=== PATIENT | female | born 1935 | race Caucasian/White ===

== ENCOUNTER 2018-02-25 23:00 | Emergency (ER) | payer MEDICARE | END 2018-02-26 02:40 | disposition home or self-care (01) | LOC: ERS 23:00 | DX: Z46.6 Encounter for fitting and adjustment of urinary device (principal); E11.9 Type 2 diabetes mellitus without complications; I25.2 Old myocardial infarction; E03.9 Hypothyroidism, unspecified; E78.5 Hyperlipidemia, unspecified; Z86.73 Personal history of transient ischemic attack (TIA), and cerebral infarction without residual deficits; Z79.82 Long term (current) use of aspirin; Z79.899 Other long term (current) drug therapy | CPT/HCPCS: 51702 ==

== ENCOUNTER 2018-06-06 09:49 | Inpatient (IN) | payer MEDICARE ==
[2018-06-06 10:05] LABS: #Basophils 0.1 thou/uL (0.0-0.2); #Eosinphils 0.4 thou/uL (0.0-0.7); #Lymphocytes 3.4 thou/uL (1.20-3.40); #Monocytes 0.7 thou/uL (0.11-0.59); #Neutrophils 4.6 thou/uL (1.40-6.50); %Basophils 0.9 % (0.0-1.0); %Eosinophils 4.1 % (0.0-10.0); %Lymphocytes 37.1 % (21.0-51.0); %Monocytes 7.1 % (0.0-10.0); %Neutrophils 50.8 % (42.0-75.0); Mean Corpuscular HGB CONC 34.1 g/dL (32.0-36.0); Mean Corpuscular Hemoglobin 32.3 pg (27.0-31.0); Mean Corpuscular Volume 94.9 fL (78.0-98.0); Mean Platelet Volume 8.1 fL (7.4-10.4); Platelet Count 217 thou/uL (130-400); RBC Distribution Width 12.4 % (11.5-14.5); Red Blood Cell (RBC) Count 3.72 mill/uL (4.20-5.40); White Blood Cell (WBC) Count 9.1 thou/uL (4.8-10.8)
[2018-06-06 10:10] LABS: Prothrombin Time 12.9 SEC (12.0-14.7)
[2018-06-06 10:11] LABS: PTT 28.1 SEC (22.9-36.1)
[2018-06-06 10:21] LABS: CKMB 0.7 ng/mL (0-6.6); Troponin I Less than 0.010 ng/mL (< 0.028)
[2018-06-06 10:30] LABS: ALT (SGPT) 10 U/L (8-55); AST (SGOT) 15 U/L (5-34); Albumin 3.5 g/dL (3.4-4.8); Alkaline Phosphatase 74 U/L (40-150); Anion Gap 15 mmol/L (10-20); BUN (Urea Nitrogen) 33 mg/dL (9.8-20.1); Bilirubin, Total 0.4 mg/dL (0.2-1.2); Calc. Creatinine Clearance 0 mL/min (70-130); Calcium 8.9 mg/dL (7.8-10.44); Carbon Dioxide 21 mmol/L (23-31); Chloride 105 mmol/L (98-107); Estimated GFR-MDRD 44; Globulin 2.5 g/dL (2.4-3.5); Glucose 144 mg/dL (83-110); Potassium 5.3 mmol/L (3.5-5.1); Sodium 136 mmol/L (136-145)
[2018-06-06 10:59] LABS: Bilirubin Negative (Negative); Blood, Urine Negative (Negative); Glucose, Urine (Dipstick) Negative (Negative); Leukocyte Small (Negative); Nitrite Negative (Negative); Protein, Urine (Dipstick) Negative (Neg-Trace); Urobilinogen 0.2 mg/dL (0.2-1.0); pH, Urine 6.5 (5.0-9.0)
--- NOTE | 2018-06-06 11:00 | CT ---
CTA OF THE HEAD AND NECK UTILIZING IV CONTRAST AND 3D REFORMATTED IMAGING: INDICATION: Stroke activation. The patient was last seen normal on 06/05/18 with speech issues and disorientation . COMPARISON: CT of the brain dated 06/06/08 and 12/17/13. FINDINGS: CTA OF THE NECK: There is a small sub-4 mm pulmonary nodule within the right lung apex on image 44 of series 2. There is vascular calcification involving the aortic arch. The right brachiocephalic artery origin i s widely patent. The right subclavian artery origin is patent. The right common carotid artery orig in is widely patent. The right carotid bifurcation is patent. The cervical right ICA is widely quiles nt. The right vertebral artery origin and cervical course is widely patent. The left common carotid artery origin is widely patent. The left carotid bifurcation is patent. The left cervical ICA course is widely patent. The left subclavian artery origin is patent. The left vertebral artery origin and cervical course is widely patent. The remaining course of the left subclavian artery is widely patent. No enlarged lymph nodes are evident. The visualized parotid and submandibular glands are normal-appe aring. There is slight heterogeneity of the thyroid gland. Visualized aerodigestive tract is within normal limits. There is multilevel spondylosis of the cervical spine. CTA OF THE HEAD: No hemodynamically significant stenosis, occlusion, or aneurysmal formation is seen involving the int racranial arteries. There are moderate vascular calcifications involving the cavernous and supraclin oid ICAs. There is a remote-appearing cortical infarct involving the right frontal lobe. There is m ild chronic small-vessel white matter ischemic change. No definite acute infarct, hemorrhage, or hyd rocephalus is present. There is a remote infarct involving the left cerebellar hemisphere that is st able to the comparison in 2014. No area of abnormality enhancement is demonstrated. Mastoid air cells are clear. Visualized paranas al sinuses are clear. IMPRESSION: No hemodynamically significant stenosis, occlusion, or aneurysmal formation. Findings were called to Dr. Austin at 10:28 a.. on 06/06/18. CODE CR POS: [facility]
[2018-06-06 11:01] LABS: Clarity CLEAR (Clear)
[2018-06-06 11:06] LABS: Bacteria/HPF 2+ HPF (None Seen); Hyaline Casts/LPF NONE SEEN LPF (0-3 Hyaline); RBC/HPF None Seen HPF (0-3); Renal Epithelial None Seen HPF (0-3); Squamous Epithelial 0-3 HPF (0-3); Transitional Epithelial 0-3 HPF (0-3)
[2018-06-06] MEDS ORDERED: Aspirin 325 MG TAB ONE (12:39)
[2018-06-06] MEDS ORDERED: Labetalol HCl 100 MG/20 ML VIAL ONE (12:48)
[2018-06-06] MEDS ORDERED: ISOVUE-370 76%-LOCM 1 ML ONE (14:49)
[2018-06-06] MEDS ORDERED: Acetaminophen 325 MG TAB PO PRN (15:20)
[2018-06-06] MEDS ORDERED: Dextrose 5% in Water 1,000 ML IV PRN (15:20)
[2018-06-06] MEDS ORDERED: hydrALAZINE 20 MG/ML VIAL SLOW IVP PRN (15:20)
[2018-06-06] MEDS ORDERED: HumaLOG 300 UNITS/3 ML VIAL SC PRN ×2 (15:20)
[2018-06-06] MEDS ORDERED: Dextrose 50% Abboject 50 ML SYRINGE SLOW IVP PRN (15:20)
[2018-06-06] MEDS ORDERED: Mag-Al 1200 mg/1200 mg/30 ML UDCUP PO PRN (15:20)
[2018-06-06] MEDS ORDERED: Milk Of Magnesia 30 ML UDCUP PO PRN (15:20)
[2018-06-06 15:59] VITALS: BMI 33.5
--- NOTE | 2018-06-06 19:54 | HP ---
PRIMARY CARE PHYSICIAN: Dr. Mcgrath. CHIEF COMPLAINT: Slurred speech and confusion. HISTORY OF PRESENT ILLNESS: Ms. Boyer is a very pleasant 83-year-old female that has a history of h ypertension and diabetes mellitus. She was brought in by her daughter due to concerns for an episode in which she had slurred speech and confusion. The patient lives with her daughter and her daughter says that she was putting on her gait belt earlier this morning when she was asking her mom some que stions and she just basically stared at her like it did not process and she would not answer her back . She said she noticed that her face looked a little bit depressed on one side and she was concerned and called the EMS. This started around 9:30 this morning and she says by the time the ambulance ar rived, she began talking a little bit more and the speech did seem a bit slurred, and by the time she got to the ER, she was essentially back to normal. She noticed that her walking seemed to be okay. She was not leaning to one side and was not weak and did not have any upper extremity weakness. Her daughter says she has had a few episodes like this over the last year. She did not seek medical att ention for it. It lasted only a few minutes and then got better on its own. The patient denies yuni ng any headaches, no dizziness, no chest pain, no shortness of breath, no other symptoms. She does n ote that a few days ago she had a coughing spell and she says it was unusual. It lasted almost 3 josh rs, but then got better on its own. Otherwise, no other complaints. REVIEW OF SYSTEMS: All systems are reviewed and are negative except for that mentioned in the histor y of present illness. PAST MEDICAL HISTORY: Significant for hypertension, diabetes, hyperlipidemia, urinary retention, hyp othyroidism, previous cerebrovascular accident. PAST SURGICAL HISTORY: She has had cataract surgery. ALLERGIES: IODINE. SOCIAL HISTORY: She is . She lives with her daughter. She is a nonsmoker, nondrinker. Her code status is a FULL CODE. Her daughter, Chula Boyer is her medical decision maker. FAMILY HISTORY: No history of any inheritable diseases. CURRENT MEDICATIONS: Include glipizide 10 mg twice a day, metoprolol extended release 50 mg twice da dot, levothyroxine 75 mcg daily, lisinopril 20 mg twice a day, aspirin 325 mg daily, and Lasix 20 mg daily. PHYSICAL EXAMINATION: GENERAL: She is alert and oriented. She appears to be in no acute distress. She is well-developed, well-nourished. VITAL SIGNS: Her blood pressure was 143/82, heart rate 78, respiratory rate is 17 and she is afebril e. HEENT: Pupils are equal, round, and reactive. Extraocular muscles are intact. Her sclerae are anic teric. Throat: She has got poor dentition. There is no erythema, no exudates. NECK: There is no adenopathy, no bruits. LUNGS: These are clear to auscultation. There was no wheezing, no rales. CARDIOVASCULAR: She has a normal S1, S2. There is no S3 or S4. No murmurs, clicks, no rubs. ABDOMEN: Obese, it is soft, it is nontender, nondistended. Positive for bowel sounds. There is no rebound, no guarding. EXTREMITIES: There is no edema and no erythema. She has got palpable dorsalis pedis pulses. No ski n lesions. NEUROLOGIC: Her cranial nerves II-XII are grossly intact. Her muscle strength is 5/5 in both her up per and lower extremities. There was no pronator drift. She may have a slight droop on the right, b ut this is per her daughter's observation; per my observation, it looks fairly symmetric. LABORATORY DATA AND IMAGING DATA: Sodium was 136, potassium 5.3, chloride is 105, CO2 is 21, BUN of 33, creatinine 1.18 and glucose is 144. White blood cell count is 9.1, hemoglobin 12, hematocrit is 35.3, platelet count is 217. INR was 1.0. Urinalysis is 2+ bacteria. White blood cell count was 7- 10. She had a CT scan of the brain which was reported as having no acute changes. Still awaiting final result and CT angiogram, which did not show any significant intracranial lesions, stenosis or aneurysm. ASSESSMENT AND PLAN: This is an 83-year-old female that presents to the emergency room with confusio n and some slurred speech which was transient and has appeared to almost completely resolve to baseli ne. I suspect this was likely a transient ischemic attack. She does have risk factors for cerebrova scular disease including hypertension and diabetes mellitus. She will be monitored overnight in [facility]. We will check her lipid panel as well as monitor her blood pressure to see if there is any room for improvement in the management of that. We will also monitor her for signs of atrial fibrill ation and she has had an echo back in 2013 and her cardiac exam at least clinically appears to be unr emarkable. Therefore, we will not repeat check an echo on this admission; however, the carotid Doppl ers possibly could have changed over the last 4 years and we will repeat a carotid Doppler and if thi s is negative and there are no signs of any arrhythmia, then likely she can be discharged home tomorr ow.
[2018-06-06] MEDS: Atorvastatin Calcium 40 MG TAB PO SCH (20:27)
--- NOTE | 2018-06-06 23:57 | CON ---
DATE OF CONSULTATION: 06/06/2018 CHIEF COMPLAINT: Possible stroke. HISTORY OF PRESENT ILLNESS: The patient and her daughter gave medical history. The patient has had CVA several years ago causing baseline mild left hemiparesis, and at baseline at home, she is pretty independent, walks with a walker, and does depend on her daughter for some help. The patient does paredes ve some memory problems, which are mild, but not very confused at baseline per daughter. She had slu rred speech and right-sided facial droop today and she was brought to the hospital. She also became a little confused and this was at 9:30 this morning, and by the time she got to the ER, her symptoms resolved. At this time, her symptoms are completely resolved and she is back to her baseline, except for some confusion. She has had some intermittent episodes and 2 years ago, she did have another mi nor stroke. She does not have any headache, double vision, chest pain, or any other symptoms at this time. No numbness was described. PAST MEDICAL HISTORY: Hypertension, diabetes, coronary artery disease with prior GA plus CVA at the same time with her first stroke and another CVA 2 years ago, urinary problems, and hypothyroidism. PAST SURGICAL HISTORY: Cataract surgery. ALLERGIES: Allergic to IODINE. SOCIAL HISTORY: She lives with her daughter. Does not smoke and her daughter is her medical decisio n maker and POA. FAMILY HISTORY: There is positive family history of CVA in her mother. CURRENT MEDICATIONS AT HOME: She takes glipizide, metoprolol, levothyroxine, lisinopril, aspirin, an d Lasix. Currently, she is receiving Tylenol, Maalox, Lipitor, and also Lovenox and hydralazine here for elevated blood pressure as needed. She is also on insulin sliding scale. REVIEW OF SYSTEMS: Pulmonary: Positive for recent cough. No shortness of breath. Cardiac: Negati ve for any chest pain or palpitations. Gastrointestinal: Negative for any constipation or diarrhea. Genitourinary: Positive for urinary retention. Neurologic: Positive for slurred speech and diffi culty with facial droop on the right side. Hematologic: Normal. Dermatologic: Normal. No skin ra sh. GENERAL: Negative for any recent fever. LABORATORY DATA: Laboratory report so far: White count 9.1, hemoglobin 12, hematocrit 35.3, platele ts 217. Coagulation: PT 12.9, INR 1, PTT 28.1. Chemistry: Sodium 136, potassium 5.3, chloride 105 , bicarbonate 21, BUN 33, creatinine 1.18, glucose 144. Urine is negative for any infection. CTA shows no hemodynamically significant stenosis, occlusion, or aneurysmal formation in the CTA, but there is remote-appearing cortical infarct involving the right frontal lobe and also a remote infarc t involving left cerebellar hemisphere that is stable when compared to films in 2014. There is vascu lar calcification involving aortic arch. There is normal left ICA and right vertebral. Right caroti d bifurcation is patent. Right ECA is also patent. PHYSICAL EXAMINATION: VITAL SIGNS: Blood pressure 174/75, temperature 97.9, pulse 83, respiratory rate 14. GENERAL APPEARANCE: Well-built, well-nourished lady who seems comfortable in bed. CHEST: Clear vesicular breathing. CARDIOVASCULAR: S1, S2 heard. No murmurs. ABDOMEN: Soft, nontender. No organomegaly noted. NEUROLOGIC: Higher intellectual function. She tells me this is 03/30/1996. She knows she is in [place] [facility], could not name the hospital. Daughter said it is quite unusual for her to go that far back with her dates. Cranial nerves II-XII normal. Fundus exam, normal pupillary reaction. No facial asymmet ry. Normal sensation of face bilaterally. Normal extraocular movements bilaterally and normal stren gth of facial muscles. Normal hearing bilaterally to finger rub. Tongue midline. No atrophy noted. Normal elevation of palate. Motor Exam: Bulk normal tone. Normal strength 5/5 in both upper extr emities except for distal left upper extremity, which was at 4/5. The right lower extremity strength was 5/5, left was 4/5. Deep tendon reflexes were absent. Muscle groups tested: Iliopsoas, hamstri ngs, quadriceps, ankle dorsiflexion, plantar flexion, deltoid, biceps, triceps, wrist extension and f lexion, finger extension and flexion bilaterally. Sensory: Normal to touch, pinprick, proprioceptio n, vibration, temperature. Cerebellar: Normal [id number], [id number]. IMPRESSION: The patient is an 83-year-old lady with prior history of strokes and there is history of old stroke in the right frontal lobe as well as the left cerebellar area, and her examination does s how mild left-sided weakness which seems to be her baseline. Gait was not tested, but she is walking with a walker at home and daughter helps her with a gait belt. She was noticed to have slurred spee ch this morning and was brought to the hospital. At this time, she is back to baseline and this even t lasted about a couple of hours. CLINICAL DIAGNOSIS: Most likely a transient ischemic attack. RECOMMENDATIONS: Please obtain MRI of the brain and complete stroke workup including echocardiogram, and I will follow up with you tomorrow.
[2018-06-07 06:21] LABS: #Basophils 0.1 thou/uL (0.0-0.2); #Eosinphils 0.3 thou/uL (0.0-0.7); #Lymphocytes 2.7 thou/uL (1.20-3.40); #Monocytes 0.6 thou/uL (0.11-0.59); #Neutrophils 5.4 thou/uL (1.40-6.50); %Basophils 0.9 % (0.0-1.0); %Eosinophils 3.5 % (0.0-10.0); %Lymphocytes 29.8 % (21.0-51.0); %Monocytes 6.9 % (0.0-10.0); Hemoglobin 10.9 g/dL (12.0-16.0); Mean Corpuscular HGB CONC 34.1 g/dL (32.0-36.0); Mean Corpuscular Volume 93.8 fL (78.0-98.0); Mean Platelet Volume 8.1 fL (7.4-10.4); Platelet Count 216 thou/uL (130-400); RBC Distribution Width 12.4 % (11.5-14.5); Red Blood Cell (RBC) Count 3.41 mill/uL (4.20-5.40); White Blood Cell (WBC) Count 9.2 thou/uL (4.8-10.8)
[2018-06-07 06:41] LABS: Anion Gap 12 mmol/L (10-20); BUN (Urea Nitrogen) 27 mg/dL (9.8-20.1); Calc. Creatinine Clearance 47 mL/min (70-130); Calcium 8.7 mg/dL (7.8-10.44); Carbon Dioxide 24 mmol/L (23-31); Cardiac Risk 3.4 (Less than 4.5); Chloride 107 mmol/L (98-107); Cholesterol 136 mg/dl (< 200 Desired); Estimated GFR-MDRD 49; Glucose 138 mg/dL (83-110); HDL Cholesterol 40 mg/dL (>60 Neg Risk); LDL Cholesterol, Calculated 74 mg/dL; Potassium 4.6 mmol/L (3.5-5.1); Sodium 138 mmol/L (136-145); Triglycerides 108 mg/dL (Less than 150)
[2018-06-07 08:50] LABS: #Basophils 0.1 thou/uL (0.0-0.2); #Eosinphils 0.2 thou/uL (0.0-0.7); #Lymphocytes 2.3 thou/uL (1.20-3.40); #Monocytes 0.7 thou/uL (0.11-0.59); #Neutrophils 5.8 thou/uL (1.40-6.50); %Basophils 0.8 % (0.0-1.0); %Eosinophils 2.6 % (0.0-10.0); %Lymphocytes 25.6 % (21.0-51.0); %Monocytes 7.4 % (0.0-10.0); %Neutrophils 63.6 % (42.0-75.0); Hemoglobin 11.8 g/dL (12.0-16.0); Mean Corpuscular HGB CONC 34.3 g/dL (32.0-36.0); Mean Corpuscular Hemoglobin 31.8 pg (27.0-31.0); Mean Corpuscular Volume 92.8 fL (78.0-98.0); Mean Platelet Volume 7.6 fL (7.4-10.4); Platelet Count 217 thou/uL (130-400); RBC Distribution Width 12.4 % (11.5-14.5); Red Blood Cell (RBC) Count 3.71 mill/uL (4.20-5.40); White Blood Cell (WBC) Count 9.1 thou/uL (4.8-10.8)
[2018-06-07] MEDS ORDERED: Enoxaparin Sodium 40 MG/0.4 ML SYRINGE SC SCH (09:00)
[2018-06-07 09:02] LABS: Prothrombin Time 13.5 SEC (12.0-14.7)
[2018-06-07 09:08] LABS: ALT (SGPT) 8 U/L (8-55); AST (SGOT) 19 U/L (5-34); Albumin 3.4 g/dL (3.4-4.8); Alkaline Phosphatase 66 U/L (40-150); Anion Gap 14 mmol/L (10-20); BUN (Urea Nitrogen) 26 mg/dL (9.8-20.1); Bilirubin, Total 0.4 mg/dL (0.2-1.2); Calc. Creatinine Clearance 42 mL/min (70-130); Calcium 8.7 mg/dL (7.8-10.44); Carbon Dioxide 22 mmol/L (23-31); Chloride 107 mmol/L (98-107); Estimated GFR-MDRD 43; Globulin 2.7 g/dL (2.4-3.5); Glucose 229 mg/dL (83-110); Potassium 4.8 mmol/L (3.5-5.1); Protein, Total 6.1 g/dL (6.0-8.3); Sodium 138 mmol/L (136-145)
[2018-06-07 09:11] LABS: CKMB 3.8 ng/mL (0-6.6)
[2018-06-07 09:15] LABS: Troponin I 2.692 ng/mL (< 0.028)
--- NOTE | 2018-06-07 09:17 | PDOC.PN ---
- Subjective Encounter Start Date: 06/07/18 Encounter Start Time: 09:15 Ms. Boyer was seen today after code abby. she was noted to have a change in her mental status, she was more dysarthria, and confusion which prompted the stroke alert. She was taken down for CT-scan stat. She is awake and alert, but confused on some issues. She knows she is in the hospital. - Objective Resuscitation Status: Resuscitation Status FULL:Full Resuscitation MAR Reviewed: Yes Vital Signs & Weight: Vital Signs (12 hours) Temp Pulse Resp BP Pulse Ox 06/07/18 08:00 98.3 F 86 16 134/64 93 L 06/07/18 04:00 99.1 F 83 18 147/66 H 93 L 06/07/18 00:00 99.0 F 85 18 122/59 L 95 Weight Weight 171 lb 11.2 oz I&O: 06/06/18 06/07/18 06/08/18 06:59 06:59 06:59 Intake Total 520 Output Total 1800 Balance -1280 Result Diagrams: 06/07/18 08:45 06/07/18 08:45 Additional Labs: Accuchecks 06/07/18 06/07/18 06/06/18 08:43 05:42 20:31 POC Glucose 248 H 144 H 187 H 06/06/18 16:52 POC Glucose 126 H Phys Exam - Physical Examination HEENT: PERRLA Respiratory: no wheezing, no rales, no rhonchi, clear to auscultation bilateral Cardiovascular: RRR, no significant murmur, no rub Gastrointestinal: soft, non-tender, positive bowel sounds Musculoskeletal: no edema Neurological: moves all 4 limbs NIH of 4 Psychiatric: normal affect Dx/Plan (1) Acute CVA (cerebrovascular accident) Code(s): I63.9 - CEREBRAL INFARCTION, UNSPECIFIED Status: Acute (2) Hypertension Code(s): I10 - ESSENTIAL (PRIMARY) HYPERTENSION Status: Acute (3) Diabetes mellitus type 2 in obese Code(s): E11.69 - TYPE 2 DIABETES MELLITUS WITH OTHER SPECIFIED COMPLICATION; E66.9 - OBESITY, UNSPECIFIED Status: Acute - Plan * Acute CVA- discussed with the radiologist, she has an area in the left frontal area, adjacent to Broca's area, in the anterior insular cortex which is suspicious for acute vs. Subacute CVA. * The case was discussed with Dr. Rodriguez, she is not a TPA candidate, will add Plavix, and continue aspirin * Echo is pending * MRI is also pending * HTN- blood pressure is controlled * Elevated troponin- suspect this is due to the acute CVA- will trend .
[2018-06-07] MEDS ORDERED: Clopidogrel Bisulfate 75 MG TAB PO SCH ×2 (09:30→10:00)
--- NOTE | 2018-06-07 09:34 | CT ---
CT OF THE BRAIN WITHOUT CONTRAST: INDICATION: Stroke activation. Increased altered mental status. Increased slurred speech without extremity weakness or facial droop . COMPARISON: Prior stroke activation dated 06/06/18. FINDINGS: Since the comparison examination, there has been interval development of hypodensity and loss of victoria -white differentiation involving the anterior left frontal cortex and left anterior insular cortex on images 9, 10, and 11 of series 2 suspicious for an acute left anterior division MCA infarct. No int racranial hemorrhage is evident. Remote infarcts are again seen involving the left and right cerebel lar hemispheres as well as the left parietal and right frontal lobe. There is a remote lacunar infar ct of the left thalamus. The septum pellucidum and third ventricle are midline. The skull and extra cranial soft tissues are within normal limits. IMPRESSION: 1. Acute infarct involving the cortex of the anterior left frontal lobe as well as the left anterior insular cortex. The findings were called to Dr. Hess at 9:00 a.m. on 06/07/18. 2. Severe chronic ischemic change as above. CODE CR POS: [facility]
[2018-06-07] MEDS ORDERED: Enoxaparin Sodium 30 MG/0.3 ML SYRINGE SC SCH ×2 (09:45→10:00)
[2018-06-07] MEDS ORDERED: Levothyroxine Sodium 75 MCG TAB PO SCH (10:00)
[2018-06-07] MEDS ORDERED: Lisinopril 20 MG TAB PO SCH ×2 (10:00→21:00)
[2018-06-07] MEDS ORDERED: Furosemide 20 MG TAB PO SCH (10:00)
[2018-06-07] MEDS ORDERED: glipiZIDE 10 MG TAB PO SCH ×2 (10:00→21:00)
[2018-06-07] MEDS ORDERED: Levothyroxine Sodium 50 MCG TAB PO SCH (10:00)
[2018-06-07] MEDS: Aspirin 325 mg Enteric Coated Tablet PO SCH (10:32)
[2018-06-07 13:30] LABS: Critical Call Chem Troponin I RESULT DECREASING; Troponin I 2.282 ng/mL (< 0.028)
--- NOTE | 2018-06-07 14:34 | PRG ---
DATE OF SERVICE: 06/07/2018 CHIEF COMPLAINT: Acute stroke. INTERVAL HISTORY: Stroke alert was called on this lady this morning and I did receive a phone call a bout her by the physician on-call. Patient apparently had worsening of slurring speech, and per gladis moon, she could not perform [id number] properly and was more confused. A stroke alert was called . A CT of the brain was obtained urgently, and there were no significant changes compared to the pre vious according to the report and there is no official report as of now in the chart about this parti cular brain MRI. CURRENT LABORATORY WORKUP: White count 9.1, hemoglobin 11.8, hematocrit 34.5, platelets 217,000. Ch emistry: Sodium 138, potassium 4.8, chloride 107, bicarbonate 22, BUN 26, creatinine 1.19, glucose 2 .29. ALT is 8, AST is 19. Troponin I 2.282. PHYSICAL EXAMINATION: VITAL SIGNS: Blood pressure 187/79, temperature 98.3, pulse 94, respiratory rate 20. GENERAL APPEARANCE: A well-built, well-nourished lady, seems comfortable in bed, and is talking toda y. NEUROLOGIC: Cranial Nervous: No facial asymmetry noted; and speech, no dysarthria noted. Higher in tellectual functions. Orientation, she thinks it is still May and could not name the year. Motor Ex amination: Normal strength throughout in upper and lower extremities. IMPRESSION: Patient is an 83-year-old lady with a current cerebrovascular accident. She is here, sh e had another event this morning, likely established her prior cerebrovascular accident, and she has 2-3 strokes as visible on the brain CT. We are currently waiting for her MRI scan. RECOMMENDATIONS: I suggest we continue her aspirin along with the Plavix for stroke prophylaxis and please complete her stroke workup. Call Neurology if you have any further questions.
--- NOTE | 2018-06-07 14:55 | MRI ---
MRI OF THE BRAIN WITHOUT IV CONTRAST: INDICATION: History of stroke. COMPARISON: Noncontrast CT of the brain dated 06/07/18. FINDINGS: There is an area of restricted diffusion involving the anterior left insular cortex and left frontal lobe consistent with acute infarct. There is associated T2 signal abnormality noted within this carlos alberto on likely related to a subacute infarct. There are remote areas of infarcts involving the right fron kimi lobe, left parietal lobe, as well as both cerebellar hemispheres. There is moderate to severe ch ronic small-vessel white matter ischemic change. The septum pellucidum and third ventricle are midli ne. Area of diminished signal intensity is seen within gradient echo and anterior left insular salú x suspicious for a small focus of hemorrhagic conversion. The skull and extracranial soft tissues ap pear within normal limits. IMPRESSION: 1. Findings of subacute stroke involving the anterior left frontal lobe and left anterior insular co rtex with a new focus of hemorrhage involving the anterior left insular cortex. 2. Extensive chronic ischemic change as above. Findings were called to Dr. Hess at 2:22 p.m. on 06/07/18. CODE CR POS: [facility]
--- NOTE | 2018-06-07 16:25 | CT ---
CT HEAD NONCONTRAST: INDICATION: Stroke alert. Difficulty speaking. History of prior CVA with altered mental status. FINDINGS: There is redemonstration of cerebral atrophy and multifocal white matter hypoattenuation superimposed upon areas of encephalomalacia from chronic infarction, the largest of which involves the left cereb ellar hemisphere. There is evidence of an interval lacunar infarction of the left thalamus, age inde terminate on the basis of this exam. There is no hemorrhage, mass effect, or midline shift. Ex vacu o dilatation of the ventricular system is similar. IMPRESSION: 1. Age-indeterminate left thalamic lacunar infarction. Correlate clinically. 2. Prominent ischemic disease superimposed upon areas of encephalomalacia. 3. Parenchymal volume loss with compensatory dilatation of the ventricular system. These findings were conveyed via telephone to the ER physician, Dr. Santhosh Austin, at 1004 hours, 8. CODE CR POS: [facility]
[2018-06-07 17:58] LABS: Critical Call Chem Troponin I RESULT DECREASING; Troponin I 2.094 ng/mL (< 0.028)
[2018-06-07] MEDS: Atorvastatin Calcium 40 MG TAB PO SCH (19:56)
[2018-06-07] MEDS: Lisinopril 20 MG TAB PO SCH (19:57)
[2018-06-07] MEDS: glipiZIDE 10 MG TAB PO SCH (19:57)
--- NOTE | 2018-06-07 23:47 | CON ---
DATE OF CONSULTATION: 06/07/2018 CARDIOLOGY CONSULTATION PRIMARY CLOTH BALE HEADER: Dr. Ky Adam. REASON FOR CONSULTATION: Increased troponin level in the setting of stroke. HISTORY OF PRESENT ILLNESS: Ms. Ayla Boyer is a very pleasant 83-year-old woman. The patient cam e to the hospital on 06/06/2018. At that time she had slurred speech and confusion. Family member mathew ot her here to the hospital. She was found to have had a cerebrovascular accident. The patient has had troponin levels drawn which were elevated and we have been consulted. PAST MEDICAL HISTORY: The patient has a history of stroke in 2010. At that time was seen by Dr. Kirt dillon and is also noted that troponin level was elevated over 2. The patient declined further evalua tion at that point. The patient did not have chest pain or pressure with these episodes. MEDICATIONS AT HOME: 1. Simvastatin. 2. Metoprolol. 3. Aspirin. 4. Lisinopril. 5. Furosemide. ALLERGIES: IODINE. REVIEW OF SYSTEMS: CONSTITUTIONAL: No significant weight gain or loss. VISION: No changes. HEARI NG: No changes. PULMONARY: No cough or wheezing. GASTROINTESTINAL: No nausea, vomiting, diarrhea . SKIN: No rashes. NEUROLOGIC: No unilateral weakness or numbness. PSYCHIATRIC: No unusual depr ession or anxiety. FAMILY HISTORY: Negative for heart disease at a young age. PHYSICAL EXAMINATION: GENERAL: This is a pleasant elderly woman in no distress. VITAL SIGNS: Blood pressure 167/81, pulse 80 is regular. EYES: Sclerae nonicteric. MOUTH: Mucous membranes moist. NECK: Supple, no lymphadenopathy. LUNGS: Clear, no wheezing, rales or rhonchi. CARDIAC: Normal S1, normal S2. There is no murmur, rub or gallop. ABDOMEN: Soft, nontender. EXTREMITIES: No clubbing or cyanosis. There is no edema. PERTINENT LABORATORY DATA: Her peak troponin was 2.692. IMAGING DATA: EKG sinus rhythm, possible old inferior infarcts, no acute changes. ASSESSMENT: 1. The patient has had a cerebrovascular accident as outlined in the chart with slurred speech. 2. Increased troponin level indicating a non-ST elevation infarction similar to the pattern that hap pened when she had a stroke in 2010. PLAN: 1. Echocardiogram is pending. 2. The patient is on aspirin. 3. Dr. Adam will resume patient's care tomorrow. Dr. Adam recommended a stress test be done earlier this year, but the patient did not follow through at that point.
[2018-06-08] MEDS ORDERED: Levothyroxine Sodium 50 MCG TAB PO SCH ×2 (06:00→09:00)
[2018-06-08] MEDS: Lisinopril 20 MG TAB PO SCH (08:03)
[2018-06-08] MEDS: glipiZIDE 10 MG TAB PO SCH (08:04)
[2018-06-08] MEDS ORDERED: Furosemide 20 MG TAB PO SCH ×2 (09:00)
[2018-06-08] MEDS ORDERED: Clopidogrel Bisulfate 75 MG TAB PO SCH (09:00)
[2018-06-08] MEDS ORDERED: Enoxaparin Sodium 30 MG/0.3 ML SYRINGE SC SCH (09:00)
--- NOTE | 2018-06-08 13:49 | PDOC.CTH ---
Cardiology Progress Note - Subjective The pt seen and examined. No overnight events. No cardiac complaints. She was able to all exts and answer all questions well. Denied headache. Holding Plavix, ASA, and Lovenox due to hemorrhage. - Objective Vital Signs Temp Pulse Resp BP BP Pulse Ox 06/08/18 11:42 98.5 F 73 20 157/72 H 93 L 06/08/18 08:30 97.9 F 70 16 95 06/08/18 08:03 152/58 H 06/08/18 07:59 97.9 F 70 16 152/58 H 95 06/08/18 03:07 98.4 F 74 20 131/62 94 L Weight 171 lb 6.4 oz 06/07/18 06/08/18 06/09/18 06:59 06:59 06:59 Intake Total 1010 600 Output Total 925 Balance 85 600 - Physical Examination General/Neuro: alert & oriented x3 Neck: no JVD present Lungs: CTA Heart: RRR Abdomen: soft Extremities: other: (No edema) - Telemetry Telemetry Rhythm: SR 70s - Labs Result Diagrams: 06/07/18 08:45 06/07/18 08:45 Troponin/CKMB CK-MB (CK-2) 3.8 ng/mL (0-6.6) 06/07/18 08:45 Troponin I 2.094 ng/mL (< 0.028) H* 06/07/18 17:25 - Assessment/Plan 1. Acute Subacute CVA to Lt anterior frontal lobe and hemorrhage to Lt anterior insuler cortex - stable; holding Plavix, ASA, and Lovenox due to hemorrhage; managed by neurologist 2. Elevated Trop - possible due to the acute CVA; 3. HTN - stable for CVA pt. cont. to monitor 4. DM type 2 - managed by PCP 5. Hyperlipidemia - on Statin 6. Hypothyroidism - managed by PCP MAR reviewed Review of Systems - Review of Systems Constitutional: reports: weakness EENTM: reports: no symptoms reported Respiratory: reports: no symptoms reported Cardiac (ROS): reports: no symptoms reported ABD/GI: reports: no symptoms reported : reports: no symptoms reported Musculoskeletal: reports: no symptoms reported
[2018-06-08 16:07] VITALS: BP 134/62; TEMP 98.9
[2018-06-08] MEDS: Aspirin 325 mg Enteric Coated Tablet PO SCH (16:49)
--- NOTE | 2018-06-08 16:50 | PDOC.PN ---
- Subjective Encounter Start Date: 06/08/18 Encounter Start Time: 16:46 Ms. Boyer was seen today in follow-up. she does not have any complaints. - Objective MAR Reviewed: Yes Vital Signs & Weight: Vital Signs (12 hours) Temp Pulse Pulse Resp BP BP BP 06/08/18 15:28 98.9 F 77 18 134/62 06/08/18 14:13 74 147/71 H 06/08/18 11:42 98.5 F 73 20 157/72 H 06/08/18 08:30 97.9 F 70 16 06/08/18 08:03 152/58 H 06/08/18 07:59 97.9 F 70 16 152/58 H Pulse Ox 06/08/18 15:28 93 L 06/08/18 14:13 06/08/18 11:42 93 L 06/08/18 08:30 95 06/08/18 08:03 06/08/18 07:59 95 Weight Weight 171 lb 6.4 oz I&O: 06/07/18 06/08/18 06/09/18 06:59 06:59 06:59 Intake Total 1010 600 Output Total 925 Balance 85 600 Result Diagrams: 06/07/18 08:45 06/07/18 08:45 Additional Labs: Accuchecks 06/08/18 06/08/18 06/07/18 11:16 05:16 22:29 POC Glucose 167 H 87 143 H 06/07/18 17:26 POC Glucose 177 H Phys Exam - Physical Examination HEENT: PERRLA Respiratory: no wheezing, no rales, no rhonchi Cardiovascular: RRR, no significant murmur, no rub Neurological: non-focal Dx/Plan (1) Acute CVA (cerebrovascular accident) Code(s): I63.9 - CEREBRAL INFARCTION, UNSPECIFIED Status: Acute (2) Hypertension Code(s): I10 - ESSENTIAL (PRIMARY) HYPERTENSION Status: Acute (3) Diabetes mellitus type 2 in obese Code(s): E11.69 - TYPE 2 DIABETES MELLITUS WITH OTHER SPECIFIED COMPLICATION; E66.9 - OBESITY, UNSPECIFIED Status: Acute - Plan * Acute CVA- will continue aspirin and Plavix, but will decrease the dose of aspirin to 81 mg a day * She has improved considerably, and appears back to baseline * She is stable for discharge home after she has been evaluated by PT.
--- NOTE | 2018-06-10 04:41 | DIS ---
PRIMARY CARE PHYSICIAN: Dr. Chu Mcgrath DATE OF ADMISSION: 06/06/2018 DATE OF DISCHARGE: 06/08/2018 DISCHARGE DISPOSITION: Home. PRIMARY DISCHARGE DIAGNOSES: 1. Acute cerebrovascular accident. 2. Hypertension. 3. Diabetes mellitus. 4. Hyperlipidemia. 5. History of urinary retention. 6. Hypothyroidism. 7. Previous cerebrovascular accident. DISCHARGE MEDICATIONS: Include simvastatin 20 mg at bedtime, Toprol-XL 50 mg twice a day, lisinopril 20 mg twice daily, levothyroxine 75 mcg daily, Glucotrol 10 mg twice a day, Lasix 20 mg daily, Plavi x 75 mg daily, and aspirin 81 mg a day. PROCEDURES DONE DURING ADMISSION: The patient had a CT scan of the brain, which showed age indetermi leela left thalamic lacunar infarct. There was a prominent ischemic disease superimposed upon the are as of encephalomalacia. There is parenchymal volume loss with compensatory dilatation of the ventric ular system. The patient also had a CT angiogram of the [place] of the neck. This showed n o hemodynamically significant stenosis, occlusion, or aneurysmal formation. Repeat CT scan that is o n 06/07/2018 and response to a code green. The patient had an acute infarct involving the cortex of the anterior left frontal lobe as well as a left anterior insular cortex. There was some severe insurance risk surveyor dawson ischemic change. Patient had an MRI on the same day showing findings of a subacute infarct invol ving the anterior left frontal lobe and anterior insular cortex with a new focus of hemorrhage involv ing the anterior left insular cortex. There was extensive chronic ischemic changes. The patient had an echocardiogram and this was significant for an ejection fraction estimated at 60%-65%. There was E/A flow reversal noted, evidence of diastolic dysfunction. The left atrium was normal size. The a ortic valve was somewhat thickened and there was normal right atrium size, normal left ventricular si ze and function. CODE STATUS: DNR. ALLERGIES: IODINE. HOSPITAL COURSE: Ms. Boyer is a pleasant 83-year-old female who presented to the emergency room wit h complaints of slurred speech and some confusion. Full details of which are outlined in the history and physical. She was initially placed in observation due to concerns for possible transient ischem ic attack, as her symptoms actually seem to improve; however, the next morning, the patient's symptom s returned and seemed to be worsened. A code green was called and the patient went down to Urgent CT scan, which it was found that she did have an acute stroke involving the anterior left frontal lobe correlating with her symptoms. She was seen by neurologist and Plavix was added to her regimen. Mik kily for the patient, her symptoms actually improved to the point where she almost approached her [facility] jered level of functioning. Despite the stroke, she was actually asking to go home. She had no alexander r deficits in her extremities and had passed her speech evaluation for swallowing and was subsequentl y able to be discharged home. She would be receiving some home health with home PT and OT and is exp ected to follow up with her primary care physician in 1-2 weeks.
== END 2018-06-08 18:35 | disposition home or self-care (01) | DRG 64 ==
LOC: ERS 09:49 → ERHOLD 13:08 → 2SE 15:19 → OBSVTOIN 06-07 09:29
PROVIDERS: ADMIT Internal Medicine; ATTEND Internal Medicine
DX: I63.9 Cerebral infarction, unspecified (principal); I61.1 Nontraumatic intracerebral hemorrhage in hemisphere, cortical; E11.9 Type 2 diabetes mellitus without complications; I10 Essential (primary) hypertension; E66.9 Obesity, unspecified; Z68.33 Body mass index [BMI] 33.0-33.9, adult; E78.5 Hyperlipidemia, unspecified; E03.9 Hypothyroidism, unspecified; R47.81 Slurred speech; R40.2432 Glasgow coma scale score 3-8, at arrival to emergency department; I25.10 Atherosclerotic heart disease of native coronary artery without angina pectoris; I25.2 Old myocardial infarction; Z82.3 Family history of stroke
CPT/HCPCS: 36415; 36416; 70450; 70496; 70498; 70551; 80048; 80053; 80061; 81003; 81015; 82553; 83880; 84484; 85025; 85610; 85730; 93005; 93010; 93306; 94760; 96361; 96374; G8978-GP-CL; G8979-GP-CJ; J1650

== ENCOUNTER 2018-08-31 10:40 | Emergency (ER) | payer MEDICARE ==
[2018-08-31 12:09] LABS: #Basophils 0.1 thou/uL (0.0-0.2); #Eosinphils 0.3 thou/uL (0.0-0.7); #Lymphocytes 1.8 thou/uL (1.20-3.40); #Monocytes 0.4 thou/uL (0.11-0.59); #Neutrophils 7.2 thou/uL (1.40-6.50); %Basophils 0.7 % (0.0-1.0); %Eosinophils 2.9 % (0.0-10.0); %Lymphocytes 18.8 % (21.0-51.0); %Monocytes 4.4 % (0.0-10.0); %Neutrophils 73.3 % (42.0-75.0); Hemoglobin 12.2 g/dL (12.0-16.0); Mean Corpuscular HGB CONC 32.8 g/dL (32.0-36.0); Mean Corpuscular Volume 94.6 fL (78.0-98.0); Platelet Count 208 thou/uL (130-400); RBC Distribution Width 12.4 % (11.5-14.5); Red Blood Cell (RBC) Count 3.93 mill/uL (4.20-5.40); White Blood Cell (WBC) Count 9.8 thou/uL (4.8-10.8)
[2018-08-31 12:29] LABS: Bilirubin Negative (Negative); Blood, Urine Negative (Negative); Clarity CLEAR (Clear); Glucose, Urine (Dipstick) Negative (Negative); Leukocyte Trace (Negative); Nitrite Negative (Negative); Protein, Urine (Dipstick) Trace mg/dL (Neg-Trace); Specific Gravity, Urine 1.014 (1.002-1.036); Urobilinogen 0.2 mg/dL (0.2-1.0); pH, Urine 5.5 (5.0-9.0)
[2018-08-31 12:29] LABS: ALT (SGPT) 9 U/L (8-55); AST (SGOT) 15 U/L (5-34); Albumin 3.7 g/dL (3.4-4.8); Alkaline Phosphatase 76 U/L (40-150); Anion Gap 13 mmol/L (10-20); BUN (Urea Nitrogen) 33 mg/dL (9.8-20.1); Bilirubin, Total 0.4 mg/dL (0.2-1.2); CK (CPK) 30 U/L (29-168); Calc. Creatinine Clearance 0 mL/min (70-130); Calcium 9.3 mg/dL (7.8-10.44); Carbon Dioxide 23 mmol/L (23-31); Chloride 105 mmol/L (98-107); Estimated GFR-MDRD 41; Globulin 3.2 g/dL (2.4-3.5); Glucose 183 mg/dL (83-110); Lipase 22 U/L (8-78); Potassium 4.2 mmol/L (3.5-5.1); Protein, Total 6.9 g/dL (6.0-8.3); Sodium 137 mmol/L (136-145)
[2018-08-31 12:31] LABS: Bacteria/HPF 1+ HPF (None Seen); Hyaline Casts/LPF 0-3 HYALINE CAST LPF (0-3 Hyaline); Pathc Cast-AUWi Flag 0.14 (0-2.49); RBC/HPF 0-3 HPF (0-3); Squamous Epithelial 0-3 HPF (0-3); WBC/HPF 0-3 HPF (0-3)
[2018-08-31 12:31] LABS: CKMB 0.6 ng/mL (0-6.6); Troponin I Less than 0.010 ng/mL (< 0.028)
--- NOTE | 2018-09-01 08:21 | RAD ---
CHEST 1 VIEW: HISTORY: Altered mental status. COMPARISON: Radiograph 12/17/2013. FINDINGS: There is chronic elevation of the right hemidiaphragm and right middle lobe atelectasis. Chronic sca rring of the left lower lobe. No pneumothorax or effusion. Xs and mediastinal contours are similar. Chronic blunting left lateral costophrenic sulcus. IMPRESSION: Chronic findings. No acute intrathoracic abnormality. POS: [facility]
--- NOTE | 2018-09-02 13:49 | EKG ---
Test Reason : Blood Pressure : / mmHG Vent. Rate : 070 BPM Atrial Rate : 070 BPM P-R Int : 178 ms QRS Dur : 084 ms QT Int : 394 ms P-R-T Axes : 040 -30 028 degrees QTc Int : 425 ms Normal sinus rhythm Left axis deviation Nonspecific T wave abnormality Abnormal ECG Confirmed by RAJANI DINERO, RADHA ([id number]), general expeditor HARI MARIE ([id number]) on 09/02/2018 1:48:53 PM Referred By: Confirmed By:RADHA GERARD MD
== END 2018-08-31 12:54 | disposition home or self-care (01) ==
LOC: ERS 10:40
DX: R53.1 Weakness (principal); E03.9 Hypothyroidism, unspecified; I10 Essential (primary) hypertension; E78.5 Hyperlipidemia, unspecified; F41.9 Anxiety disorder, unspecified; Z86.73 Personal history of transient ischemic attack (TIA), and cerebral infarction without residual deficits; Z79.899 Other long term (current) drug therapy; Z79.82 Long term (current) use of aspirin
CPT/HCPCS: 36415; 71045; 80053; 81003; 81015; 82553; 83605; 83690; 83880; 84443; 84484; 85025; 87040; 87086; 93005; 96360

== ENCOUNTER 2018-10-02 14:15 | Emergency (ER) | payer MEDICARE ==
[2018-10-02 15:00] LABS: #Basophils 0.1 thou/uL (0.0-0.2); #Eosinphils 0.1 thou/uL (0.0-0.7); #Lymphocytes 1.7 thou/uL (1.20-3.40); #Monocytes 0.9 thou/uL (0.11-0.59); #Neutrophils 9.2 thou/uL (1.40-6.50); %Basophils 0.6 % (0.0-1.0); %Eosinophils 1.1 % (0.0-10.0); %Lymphocytes 14.1 % (21.0-51.0); %Monocytes 7.3 % (0.0-10.0); %Neutrophils 76.8 % (42.0-75.0); Hemoglobin 11.9 g/dL (12.0-16.0); Mean Corpuscular HGB CONC 32.8 g/dL (32.0-36.0); Mean Corpuscular Hemoglobin 30.8 pg (27.0-31.0); Mean Corpuscular Volume 93.8 fL (78.0-98.0); Mean Platelet Volume 8.6 fL (7.4-10.4); Platelet Count 188 thou/uL (130-400); RBC Distribution Width 12.7 % (11.5-14.5); Red Blood Cell (RBC) Count 3.87 mill/uL (4.20-5.40)
[2018-10-02 15:19] LABS: ALT (SGPT) 9 U/L (8-55); AST (SGOT) 13 U/L (5-34); Albumin 3.3 g/dL (3.4-4.8); Alkaline Phosphatase 85 U/L (40-150); Anion Gap 15 mmol/L (10-20); BUN (Urea Nitrogen) 25 mg/dL (9.8-20.1); Bilirubin, Total 0.5 mg/dL (0.2-1.2); Calc. Creatinine Clearance 0 mL/min (70-130); Calcium 8.5 mg/dL (7.8-10.44); Carbon Dioxide 22 mmol/L (23-31); Chloride 102 mmol/L (98-107); Estimated GFR-MDRD 36; Globulin 3.2 g/dL (2.4-3.5); Glucose 302 mg/dL (83-110); Potassium 3.8 mmol/L (3.5-5.1); Protein, Total 6.5 g/dL (6.0-8.3); Sodium 135 mmol/L (136-145)
[2018-10-02 15:23] LABS: CKMB 1.9 ng/mL (0-6.6); Troponin I 0.055 ng/mL (< 0.028)
[2018-10-02] MEDS ORDERED: Dicyclomine 20 MG TAB ONE ×2 (16:00→16:11)
[2018-10-02] MEDS ORDERED: Metoclopramide HCl 10 MG/2 ML VIAL ONE (16:01)
--- NOTE | 2018-10-02 20:22 | RAD ---
FRONTAL AND LATERAL IMAGING OF LEFT TIBIA AND FIBULA: 10/02/18 HISTORY: Injury, trauma, pain. FINDINGS: The knee joint is not fully assessed. There is medial and lateral compartment narrowing with osteophy te formation involving the left knee. The bones are demineralized. There is no displaced fracture or evidence of dislocation seen involving the left tibia or fibula. There is enthesophyte formation at t he origin of the plantar aponeurosis and insertion of the Achilles tendon. There is atherosclerotic c alcification of the left calf. IMPRESSION: No displaced fracture or dislocation seen. POS: [facility]
== END 2018-10-02 20:44 | disposition home or self-care (01) ==
LOC: ERS 14:15
DX: R19.7 Diarrhea, unspecified (principal); I25.2 Old myocardial infarction; E03.9 Hypothyroidism, unspecified; I10 Essential (primary) hypertension; Z79.899 Other long term (current) drug therapy; Z79.82 Long term (current) use of aspirin
CPT/HCPCS: 36415; 80053; 82553; 84484; 85025; 93005; 96361; 96365; J2765

== ENCOUNTER 2018-10-13 11:02 | Inpatient (IN) | payer MEDICARE ==
[2018-10-13 13:03] LABS: #Eosinphils 0.1 thou/uL (0.0-0.7); #Lymphocytes 1.5 thou/uL (1.20-3.40); #Monocytes 0.6 thou/uL (0.11-0.59); #Neutrophils 8.8 thou/uL (1.40-6.50); %Basophils 0.1 % (0.0-1.0); %Eosinophils 0.6 % (0.0-10.0); %Lymphocytes 13.9 % (21.0-51.0); %Monocytes 5.7 % (0.0-10.0); %Neutrophils 79.7 % (42.0-75.0); Hemoglobin 12.1 g/dL (12.0-16.0); Mean Corpuscular HGB CONC 33.7 g/dL (32.0-36.0); Mean Corpuscular Hemoglobin 30.7 pg (27.0-31.0); Mean Corpuscular Volume 91.1 fL (78.0-98.0); Mean Platelet Volume 7.6 fL (7.4-10.4); Platelet Count 306 thou/uL (130-400); RBC Distribution Width 12.1 % (11.5-14.5); Red Blood Cell (RBC) Count 3.92 mill/uL (4.20-5.40)
--- NOTE | 2018-10-13 13:03 | RAD ---
CHEST 1 VIEW: Date: 10/13/18 INDICATION: History of fall, with constipation and weakness. COMPARISON: Prior exam dated 08/31/18. IMPRESSION: The eventration of the right hemidiaphragm is stable. Scattered chronic lung changes are similar appe aring. Mild cardiomegaly is similar appearing. Vascular calcification of aortic arch is stable. Chron ic osseous changes are stable. POS: [facility]
[2018-10-13 13:27] LABS: CKMB 1.3 ng/mL (0-6.6); Troponin I 0.077 ng/mL (< 0.028)
[2018-10-13 13:28] LABS: Bilirubin Negative (Negative); Blood, Urine Negative (Negative); Clarity CLOUDY (Clear); Glucose, Urine (Dipstick) Negative (Negative); Leukocyte Negative (Negative); Nitrite Negative (Negative); Protein, Urine (Dipstick) 30 mg/dL (Neg-Trace); Specific Gravity, Urine 1.018 (1.002-1.036)
[2018-10-13 13:28] LABS: ALT (SGPT) Less than 7 U/L (8-55); AST (SGOT) 15 U/L (5-34); Albumin 3.2 g/dL (3.4-4.8); Alkaline Phosphatase 87 U/L (40-150); Anion Gap 13 mmol/L (10-20); BUN (Urea Nitrogen) 23 mg/dL (9.8-20.1); Bilirubin, Total 0.5 mg/dL (0.2-1.2); Calc. Creatinine Clearance 0 mL/min (70-130); Calcium 9.3 mg/dL (7.8-10.44); Carbon Dioxide 25 mmol/L (23-31); Chloride 102 mmol/L (98-107); Estimated GFR-MDRD 49; Globulin 3.6 g/dL (2.4-3.5); Glucose 111 mg/dL (83-110); Potassium 3.9 mmol/L (3.5-5.1); Protein, Total 6.8 g/dL (6.0-8.3); Sodium 136 mmol/L (136-145)
[2018-10-13 13:30] LABS: Hyaline Casts/LPF 4-6 HYALINE CAST LPF (0-3 Hyaline); Pathc Cast-AUWi Flag 0.58 (0-2.49); RBC/HPF 0-3 HPF (0-3); Squamous Epithelial 0-3 HPF (0-3); Yeast-AUWi Flag 32.8 (0-25.0)
[2018-10-13 13:40] LABS: Bacteria/HPF 1+ HPF (None Seen); Crystals/HPF RARE CA OXALATE HPF (Negative); Yeast-All Forms None Seen HPF (None Seen)
[2018-10-13] MEDS ORDERED: Sodium Chloride 0.9% 100 ML ONE (14:07)
[2018-10-13] MEDS ORDERED: cefTRIAXone\\ROCEPHIN 1 GM VIAL ONE (14:07)
--- NOTE | 2018-10-13 14:35 | CT ---
CT OF THE BRAIN WITHOUT CONTRAST: Date: 10/13/18 INDICATION: History of fall. COMPARISON: Prior exam dated 06/07/18. FINDINGS: There has been interval development of encephalomalacia involving the left insular cortex of the left anterior frontal lobe in the region of prior infarct. The remote cortical infarct involving the left parietal region is stable. Severe chronic small vessel white matter ischemic change is similar appea ring. Small cortical infarct involving the right frontal lobe is stable. Small lacunar infarcts invol ving the left thalamus are stable. Septum pellucidum and third ventricle are midline. Remote lacunar infarcts involving the cerebellum bilaterally are stable. Generalized cerebral atrophy is similar tip earing. Mastoid air cells are clear. Skull is intact. IMPRESSION: 1. No acute intracranial abnormality. 2. Chronic ischemic change as above. POS: [facility]
[2018-10-13] MEDS ORDERED: Dextrose 50% Abboject 50 ML SYRINGE SLOW IVP PRN (14:57)
[2018-10-13] MEDS ORDERED: HumaLOG 300 UNITS/3 ML VIAL SC PRN (14:57)
[2018-10-13] MEDS ORDERED: traMADol HCl 50 MG TAB PO PRN (14:57)
[2018-10-13] MEDS ORDERED: Dextrose 5% in Water 1,000 ML IV PRN (14:57)
[2018-10-13] MEDS: cefTRIAXone\\ROCEPHIN 1 GM in Sodium Chloride 0.9% 100 ML IVPB SCH (17:09)
[2018-10-13] MEDS: Sodium Chloride 0.9% 1,000 ML IV SCH (17:12)
[2018-10-13 17:29] VITALS: BMI 29.2
[2018-10-13 17:53] LABS: CKMB 1.7 ng/mL (0-6.6); Troponin I 0.062 ng/mL (< 0.028)
[2018-10-13] MEDS ORDERED: Prevnar 13-Val Conj/PF 0.5 ML SYRINGE IM ONE (21:00)
[2018-10-13] MEDS: Acetaminophen 325 MG TAB PO PRN (23:34)
[2018-10-14] MEDS: Sodium Chloride 0.9% 1,000 ML IV SCH ×2 (04:17→16:32)
[2018-10-14 04:38] LABS: #Basophils 0.1 thou/uL (0.0-0.2); #Eosinphils 0.1 thou/uL (0.0-0.7); #Lymphocytes 2.2 thou/uL (1.20-3.40); #Monocytes 0.8 thou/uL (0.11-0.59); #Neutrophils 7.6 thou/uL (1.40-6.50); %Basophils 0.6 % (0.0-1.0); %Eosinophils 1.1 % (0.0-10.0); %Lymphocytes 20.3 % (21.0-51.0); %Monocytes 7.8 % (0.0-10.0); %Neutrophils 70.3 % (42.0-75.0); Mean Corpuscular HGB CONC 34.2 g/dL (32.0-36.0); Mean Corpuscular Hemoglobin 31.3 pg (27.0-31.0); Mean Corpuscular Volume 91.3 fL (78.0-98.0); Mean Platelet Volume 7.8 fL (7.4-10.4); Platelet Count 268 thou/uL (130-400); RBC Distribution Width 12.1 % (11.5-14.5); Red Blood Cell (RBC) Count 3.21 mill/uL (4.20-5.40); White Blood Cell (WBC) Count 10.7 thou/uL (4.8-10.8)
[2018-10-14 04:53] LABS: Anion Gap 12 mmol/L (10-20); BUN (Urea Nitrogen) 19 mg/dL (9.8-20.1); Calc. Creatinine Clearance 46 mL/min (70-130); Carbon Dioxide 20 mmol/L (23-31); Chloride 107 mmol/L (98-107); Estimated GFR-MDRD 56; Glucose 170 mg/dL (83-110); Potassium 3.2 mmol/L (3.5-5.1); Sodium 136 mmol/L (136-145)
[2018-10-14] MEDS: Levothyroxine Sodium 75 MCG TAB PO SCH (05:22)
[2018-10-14] MEDS: Acetaminophen 325 MG TAB PO PRN ×2 (05:22→19:41)
--- NOTE | 2018-10-14 08:44 | HP ---
CHIEF COMPLAINT: Generalized weakness. HISTORY OF PRESENT ILLNESS: The patient is an 83-year-old female who has a history of CVA, hypertens ion who lives at home with her daughter, who comes into the hospital with generalized weakness and cristina dyaches. The patient's daughters at the bedside states for the past couple weeks she has not been ea ting or drinking very much. Normally, she uses a walker; however, has been using more of a wheelchai r, has been feeling very fatigued. No fevers or chills have been noted. The patient's Burgess cathete r was recently changed earlier this month. The patient's daughter feels that she has just been very weak and was concerned, so brought her into the hospital for further evaluation. REVIEW OF SYSTEMS: All negative except for the ones mentioned above in the HPI. PAST MEDICAL HISTORY: Significant for hypertension, diabetes, hyperlipidemia, urinary retention, hyp othyroidism and previous CVAs. PAST SURGICAL HISTORY: She has had cataract surgery. ALLERGIES: She is allergic to IODINE. SOCIAL HISTORY: She lives with her daughter. She is a nonsmoker. CODE STATUS: She is a full code. I did speak with her and daughter and Tiffany Boyer is her medical decision maker. FAMILY HISTORY: No history of heart disease or cancer. MEDICATIONS: She is on Glipizide 10 mg twice a day, metoprolol 50 mg twice a day, levothyroxine 75 m cg daily, lisinopril 20 mg daily, aspirin 325 daily, Lasix 20 mg daily. PHYSICAL EXAMINATION: VITAL SIGNS: Temperature of 98.8, blood pressure of 116/60, 18 respirations, 100% on room air. CARDIOVASCULAR: S1, S2 present. No murmurs, rubs or gallops. LUNGS: Clear to auscultation, rhonchi. No wheezes noted. HEENT: The patient appears to be clinically very dehydrated. ABDOMEN: Soft, nontender. Bowel sounds are present x2. EXTREMITIES: No edema. Pedal pulses are present x2. : She does have a Burgess catheter which the urine does not appear to be cloudy. NEUROLOGIC: No focal deficits noted. SKIN: No cuts, lesions, or bruises noted. LABORATORY DATA: WBC of 11.0, hemoglobin of 12.1, hematocrit of 35.8, platelets of 306. Chemistry: Sodium 136, potassium of 3.9, BUN of 22, creatinine 1.06. Troponin is 0.077. Urine was negative fo r significant indication for UTI. Chest x-ray: It did not indicate any infectious process. She also had a brain CT, which was essenti ally normal. ASSESSMENT AND PLAN: The patient is a very pleasant 83-year-old female who comes into the hospital w ith complaints of generalized weakness. 1. Acute dehydration. The patient's daughter is at the bedside states that she has not been eating and drinking very much for the past couple weeks. Her symptoms of generalized weakness could be seco ndary to dehydration. We will start the patient on some gentle hydration. We will continue her home medications. I will also check a TSH on this patient. CT head was negative. We will also consult Physical Therapy to see this patient. 2. Generalized weakness. We will check a vitamin B12. We will also check a TSH. CT head was negat jethro. Chest x-ray was normal. Urine was also normal. We will await urine culture. Again, we will g et physical therapy to come see the patient. She may require some rehabilitation. Flu also was chec ked which was negative. 3. History of stroke. We will continue her aspirin and Plavix. 4. Deep venous thrombosis prophylaxis. We will put patient on subcu heparin.
[2018-10-14] MEDS: Clopidogrel Bisulfate 75 MG TAB PO SCH (09:07)
--- NOTE | 2018-10-14 12:10 | PDOC.PN ---
- Subjective Encounter Start Date: 10/14/18 Encounter Start Time: 08:15 Subjective: awakens to touch, not oriented - Objective Resuscitation Status - Order Detail: 10/14/18 11:02 Resuscitation Status Routine Resuscitation Status: DNAR: NO Resuscitation Discussed with: d/w daughter Ms.Howard Tiffany ADAMSON Reviewed: Yes Vital Signs & Weight: Vital Signs (12 hours) Temp Pulse Resp BP Pulse Ox 10/14/18 12:05 97.9 F 70 16 133/69 96 10/14/18 07:32 98.4 F 71 16 98/61 96 10/14/18 04:12 97.9 F 74 16 101/62 95 Weight Weight 149 lb 11.2 oz I&O: 10/13/18 10/14/18 10/15/18 06:59 06:59 06:59 Intake Total 1825 Output Total 450 Balance 1375 Result Diagrams: 10/14/18 04:00 10/14/18 04:00 Additional Labs: Accuchecks 10/14/18 10/13/18 04:16 19:31 POC Glucose 159 H 127 H Phys Exam - Physical Examination HEENT: PERRLA dry mucosa Neck: no JVD, supple Respiratory: no wheezing, no rales Cardiovascular: RRR, no significant murmur Gastrointestinal: soft, non-tender, positive bowel sounds Musculoskeletal: no edema, pulses present Neurological: non-focal, moves all 4 limbs Dx/Plan (1) Acute encephalopathy Code(s): G93.40 - ENCEPHALOPATHY, UNSPECIFIED Status: Acute (2) Severe dehydration Code(s): E86.0 - DEHYDRATION Status: Acute (3) DM type 2 (diabetes mellitus, type 2) Status: Chronic Qualifiers: Diabetes mellitus nursing home insulin use: without nursing home use Diabetes mellitus complication status: with unspecified complications Qualified Code(s) : E11.8 - Type 2 diabetes mellitus with unspecified complications (4) H/O: CVA (cerebrovascular accident) Code(s): Z86.73 - PRSNL HX OF TIA (TIA), AND CEREB INFRC W/O RESID DEFICITS Status: Chronic Comment: has had b/l hemisphere cva's worse on left, including cerebellar cva (5) FTT (failure to thrive) in adult Status: Acute (6) Dementia Code(s): F03.90 - UNSPECIFIED DEMENTIA WITHOUT BEHAVIORAL DISTURBANCE Status: Chronic Qualifiers: Dementia type: unspecified type Dementia behavioral disturbance: without behavioral disturbance Qualified Code(s): F03.90 - Unspecified dementia without behavioral disturbance (7) Physical deconditioning Code(s): R53.81 - OTHER MALAISE Status: Chronic (8) Hypothyroidism Code(s): E03.9 - HYPOTHYROIDISM, UNSPECIFIED Status: Chronic Qualifiers: Hypothyroidism type: unspecified Qualified Code(s): E03.9 - Hypothyroidism , unspecified (9) Dyslipidemia Code(s): E78.5 - HYPERLIPIDEMIA, UNSPECIFIED Status: Chronic (10) Hypertension Code(s): I10 - ESSENTIAL (PRIMARY) HYPERTENSION Status: Chronic Qualifiers: Hypertension type: essential hypertension Qualified Code(s): I10 - Essential (primary) hypertension - Plan prelim blood cs are -ve, urine cs is pending -: on ceftriaxone, gentle iv hydration -: d/w daughter Ms.Howard Allen at length about prognosis and code status -: she wants her mom to be DNR, she will talk to palliative care about goals o -: -f care/hospice or palliative care in the outpt setting, mother has had pro * . -gressive decline after her cva in may and specifically from last 1 month. Has very poor oral intake, family do not want peg tube. continue asp, plavix, toprol and synthroid for now. Overall prognosis guarded. Review of Systems - Medications/Allergies Allergies/Adverse Reactions: Allergies Allergy/AdvReac Type Severity Reaction Status Date / Time iodine Allergy Verified 10/13/18 17:33 Medications: Current Medications Acetaminophen (Tylenol) 650 mg PO Q4H PRN PRN Reason: Headache/Fever/Mild Pain (1-3) Last Admin: 10/14/18 05:22 Dose: 650 mg Aspirin (Aspirin Chewable) 81 mg PO DAILY [facility] Last Admin: 10/14/18 09:07 Dose: 81 mg Clopidogrel Bisulfate (Plavix) 75 mg PO DAILY [facility] Last Admin: 10/14/18 09:07 Dose: 75 mg Dextrose/Water (Dextrose 50%) 25 gm SLOW IVP PRN PRN PRN Reason: Hypoglycemia Glucagon (Glucagon) 1 mg IM PRN PRN PRN Reason: Hypoglycemia Sodium Chloride (Normal Saline 0.9%) 1,000 mls @ 75 mls/hr IV .[id number] [facility] Last Admin: 10/14/18 04:17 Dose: 1,000 mls Ceftriaxone Sodium 1 gm/ (Sodium Chloride) 100 mls @ 200 mls/hr IVPB Q24HR [facility] Last Admin: 10/13/18 17:09 Dose: Not Given Dextrose/Water (D5w) 1,000 mls @ 0 mls/hr IV .Q0M PRN PRN Reason: Hypoglycemia Insulin Human Lispro (Humalog) 0 units SC .MILD SLIDING SCALE PRN PRN Reason: Mild Correctional Scale Levothyroxine Sodium (Synthroid) 75 mcg PO 0600 [facility] Last Admin: 10/14/18 05:22 Dose: 75 mcg Metoprolol Succinate (Toprol Xl) 50 mg PO BID [facility] Last Admin: 10/14/18 09:07 Dose: Not Given Tramadol HCl (Ultram) 50 mg PO Q6H PRN PRN Reason: Pain 4-6
[2018-10-14] MEDS: cefTRIAXone\\ROCEPHIN 1 GM in Sodium Chloride 0.9% 100 ML IVPB SCH (16:31)
[2018-10-15] MEDS: Levothyroxine Sodium 75 MCG TAB PO SCH (05:10)
[2018-10-15] MEDS: Sodium Chloride 0.9% 1,000 ML IV SCH ×2 (05:11→18:31)
[2018-10-15] MEDS: Clopidogrel Bisulfate 75 MG TAB PO SCH (08:20)
--- NOTE | 2018-10-15 11:21 | PDOC.PN ---
- Subjective Encounter Start Date: 10/15/18 Encounter Start Time: 10:15 Subjective: is more awake, responds to verbal stimuli -: is still not eating/drinking much -: daughter at bedside - Objective Resuscitation Status - Order Detail: 10/14/18 11:02 Resuscitation Status Routine Resuscitation Status: DNAR: NO Resuscitation Discussed with: d/w daughter Ms.Howard Tiffany ADAMSON Reviewed: Yes Vital Signs & Weight: Vital Signs (12 hours) Temp Pulse Resp BP Pulse Ox 10/15/18 08:00 96 10/15/18 07:16 98.3 F 69 18 129/66 96 Weight Admit Weight 149 lb 11.2 oz Weight 149 lb 11.2 oz I&O: 10/14/18 10/15/18 10/16/18 06:59 06:59 06:59 Intake Total 1825 1200 Output Total 450 375 Balance 1375 825 Result Diagrams: 10/14/18 04:00 10/14/18 04:00 Additional Labs: Accuchecks 10/15/18 10/14/18 10/14/18 04:24 19:39 16:47 POC Glucose 114 H 170 H 151 H 10/14/18 11:19 POC Glucose 118 H Phys Exam - Physical Examination HEENT: PERRLA, sclera anicteric Neck: no JVD, supple Respiratory: no wheezing, no rales Cardiovascular: RRR, no significant murmur Gastrointestinal: soft, no distention, positive bowel sounds Musculoskeletal: no edema, pulses present Neurological: non-focal, moves all 4 limbs Psychiatric: normal affect Dx/Plan (1) Acute encephalopathy Code(s): G93.40 - ENCEPHALOPATHY, UNSPECIFIED Status: Acute (2) Severe dehydration Code(s): E86.0 - DEHYDRATION Status: Acute (3) DM type 2 (diabetes mellitus, type 2) Status: Chronic Qualifiers: Diabetes mellitus fci insulin use: without lobsterman use Diabetes mellitus complication status: with unspecified complications Qualified Code(s) : E11.8 - Type 2 diabetes mellitus with unspecified complications (4) H/O: CVA (cerebrovascular accident) Code(s): Z86.73 - PRSNL HX OF TIA (TIA), AND CEREB INFRC W/O RESID DEFICITS Status: Chronic Comment: has had b/l hemisphere cva's worse on left, including cerebellar cva (5) FTT (failure to thrive) in adult Status: Acute (6) Dementia Code(s): F03.90 - UNSPECIFIED DEMENTIA WITHOUT BEHAVIORAL DISTURBANCE Status: Chronic Qualifiers: Dementia type: unspecified type Dementia behavioral disturbance: without behavioral disturbance Qualified Code(s): F03.90 - Unspecified dementia without behavioral disturbance (7) Physical deconditioning Code(s): R53.81 - OTHER MALAISE Status: Chronic (8) Hypothyroidism Code(s): E03.9 - HYPOTHYROIDISM, UNSPECIFIED Status: Chronic Qualifiers: Hypothyroidism type: unspecified Qualified Code(s): E03.9 - Hypothyroidism , unspecified (9) Dyslipidemia Code(s): E78.5 - HYPERLIPIDEMIA, UNSPECIFIED Status: Chronic (10) Hypertension Code(s): I10 - ESSENTIAL (PRIMARY) HYPERTENSION Status: Chronic Qualifiers: Hypertension type: essential hypertension Qualified Code(s): I10 - Essential (primary) hypertension - Plan dc iv fluids, has some edema building up -: d/w noemiugher at bedside, she is talking to palliative care -: dc plan in am with either or palliative/hospice care -: on ceftriaxone will dc in am -: continue asp, plavix, toprol, synthroid * . Review of Systems - Medications/Allergies Allergies/Adverse Reactions: Allergies Allergy/AdvReac Type Severity Reaction Status Date / Time iodine Allergy Verified 10/13/18 17:33 Medications: Current Medications Acetaminophen (Tylenol) 650 mg PO Q4H PRN PRN Reason: Headache/Fever/Mild Pain (1-3) Last Admin: 10/14/18 19:41 Dose: 650 mg Aspirin (Aspirin Chewable) 81 mg PO DAILY [facility] Last Admin: 10/15/18 08:20 Dose: 81 mg Clopidogrel Bisulfate (Plavix) 75 mg PO DAILY [facility] Last Admin: 10/15/18 08:20 Dose: 75 mg Dextrose/Water (Dextrose 50%) 25 gm SLOW IVP PRN PRN PRN Reason: Hypoglycemia Glucagon (Glucagon) 1 mg IM PRN PRN PRN Reason: Hypoglycemia Sodium Chloride (Normal Saline 0.9%) 1,000 mls @ 75 mls/hr IV .[id number] [facility] Last Admin: 10/15/18 05:11 Dose: 1,000 mls Ceftriaxone Sodium 1 gm/ (Sodium Chloride) 100 mls @ 200 mls/hr IVPB Q24HR [facility] Last Admin: 10/14/18 16:31 Dose: 100 mls Dextrose/Water (D5w) 1,000 mls @ 0 mls/hr IV .Q0M PRN PRN Reason: Hypoglycemia Insulin Human Lispro (Humalog) 0 units SC .MILD SLIDING SCALE PRN PRN Reason: Mild Correctional Scale Lactulose (Lactulose) 20 gm PO Q6HR [facility] Last Admin: 10/15/18 06:46 Dose: 20 gm Levothyroxine Sodium (Synthroid) 75 mcg PO 0600 [facility] Last Admin: 10/15/18 05:10 Dose: 75 mcg Metoprolol Succinate (Toprol Xl) 50 mg PO DAILY [facility] Last Admin: 10/15/18 08:21 Dose: 50 mg Tramadol HCl (Ultram) 50 mg PO Q6H PRN PRN Reason: Pain 4-6 Last Admin: 10/14/18 19:41 Dose: 50 mg
[2018-10-15] MEDS ORDERED: Fleet Enema 133 ML BOT PR PRN (13:30)
[2018-10-15] MEDS ORDERED: Bisacodyl 10 MG SUPP PR PRN (13:30)
[2018-10-15] MEDS: cefTRIAXone\\ROCEPHIN 1 GM in Sodium Chloride 0.9% 100 ML IVPB SCH (16:53)
[2018-10-15] MEDS: Docusate Sodium 100 MG/10 ML UDCUP PO SCH (20:40)
[2018-10-16] MEDS: Levothyroxine Sodium 75 MCG TAB PO SCH (05:56)
[2018-10-16] MEDS: Clopidogrel Bisulfate 75 MG TAB PO SCH (08:46)
[2018-10-16] MEDS ORDERED: Polyethylene Glycol 3350 17 GM Packet PO SCH (09:00)
[2018-10-16] MEDS: Docusate Sodium 100 MG/10 ML UDCUP PO SCH (09:06)
[2018-10-16] MEDS: Sodium Chloride 0.9% 1,000 ML IV SCH (09:06)
[2018-10-16 11:23] VITALS: BP 165/85; TEMP 98.9
--- NOTE | 2018-10-16 12:32 | PDOC.PN ---
- Subjective Encounter Start Date: 10/16/18 Encounter Start Time: 08:30 Subjective: no sob or chest pain -: is eating slightly better but still poor appetite -: she eats meats better per daughter than drinking ensure varieties - Objective Resuscitation Status - Order Detail: 10/14/18 11:02 Resuscitation Status Routine Resuscitation Status: DNAR: NO Resuscitation Discussed with: d/w daughter Ms.Howard Tiffany ADAMSON Reviewed: Yes Vital Signs & Weight: Vital Signs (12 hours) Temp Pulse Resp BP Pulse Ox 10/16/18 11:21 98.9 F 73 16 165/85 H 96 10/16/18 08:00 96 10/16/18 07:29 98.1 F 76 16 147/84 H 96 Weight Admit Weight 149 lb 11.2 oz Weight 149 lb 11.2 oz I&O: 10/15/18 10/16/18 10/17/18 06:59 06:59 06:59 Intake Total 1200 Output Total 375 600 Balance 825 -600 Result Diagrams: 10/14/18 04:00 10/14/18 04:00 Additional Labs: Accuchecks 10/16/18 10/16/18 10/15/18 11:40 04:45 20:08 POC Glucose 165 H 139 H 136 H 10/15/18 15:53 POC Glucose 174 H Phys Exam - Physical Examination HEENT: PERRLA, moist MMs Neck: no JVD, supple Respiratory: no wheezing, no rales Cardiovascular: RRR, no significant murmur Gastrointestinal: soft, non-tender, no distention, positive bowel sounds Musculoskeletal: no edema, pulses present Neurological: non-focal, moves all 4 limbs Dx/Plan (1) Acute encephalopathy Code(s): G93.40 - ENCEPHALOPATHY, UNSPECIFIED Status: Resolved Comment: at baseline now (2) Severe dehydration Code(s): E86.0 - DEHYDRATION Status: Resolved (3) DM type 2 (diabetes mellitus, type 2) Status: Chronic Qualifiers: Diabetes mellitus terminal superintendent insulin use: without half-way use Diabetes mellitus complication status: with unspecified complications Qualified Code(s) : E11.8 - Type 2 diabetes mellitus with unspecified complications (4) H/O: CVA (cerebrovascular accident) Code(s): Z86.73 - PRSNL HX OF TIA (TIA), AND CEREB INFRC W/O RESID DEFICITS Status: Chronic Comment: has had b/l hemisphere cva's worse on left, including cerebellar cva (5) FTT (failure to thrive) in adult Status: Chronic (6) Dementia Code(s): F03.90 - UNSPECIFIED DEMENTIA WITHOUT BEHAVIORAL DISTURBANCE Status: Chronic Qualifiers: Dementia type: unspecified type Dementia behavioral disturbance: without behavioral disturbance Qualified Code(s): F03.90 - Unspecified dementia without behavioral disturbance (7) Physical deconditioning Code(s): R53.81 - OTHER MALAISE Status: Chronic (8) Hypothyroidism Code(s): E03.9 - HYPOTHYROIDISM, UNSPECIFIED Status: Chronic Qualifiers: Hypothyroidism type: unspecified Qualified Code(s): E03.9 - Hypothyroidism , unspecified (9) Dyslipidemia Code(s): E78.5 - HYPERLIPIDEMIA, UNSPECIFIED Status: Chronic (10) Hypertension Code(s): I10 - ESSENTIAL (PRIMARY) HYPERTENSION Status: Chronic Qualifiers: Hypertension type: essential hypertension Qualified Code(s): I10 - Essential (primary) hypertension - Plan has no supplemental insurance with medicare, will arrange HH with PT -: daughter is aware of progressive decline and need for palliative care -: to f/u with in 1 week -: trial of megace -: dc pt home * .
--- NOTE | 2018-10-16 14:13 | PQF ---
CLINICAL DOCUMENTATION IMPROVEMENT CLARIFICATION FORM: ICD-10 Updated PLEASE DO AN ADDENDUM TO THE PROGRESS NOTE WITH ANY DOCUMENTATION UPDATES OR ADDITIONS AND CARRY THROUGH TO DC SUMMARY. THANK YOU. DATE: 10/16/18 ATTN: DR. GABRIEL Please exercise your independent, professional judgment in responding to the clarification form. Clinical indicators are provided on the bottom of this form for your review Please check appropriate box(s): [ x ] Encephalopathy: Type: [ x ] Acute [ ] Subacute [ ] Chronic Etiology: [ ] Hypertensive [ x] Metabolic [ ] Toxic [ ] Hypoxic [ ] Septic [ ] Drug induced: [ ] Unspecified [ ] in the setting of underlying dementia [ ] Other (please specify) [ ] Other diagnosis [ ] Unable to determine In addition, please specify: Present on Admission (POA): [x ] Yes [ ] No [ ] Unable to determine For continuity of documentation, please document condition throughout progress notes and discharge summary. Thank You. CLINICAL INDICATORS - SIGNS / SYMPTOMS / LABS H&P: "ACUTE ENCEPHALOPATHY" RISKS: H/O DEMENTIA H/O CVA ADMISSION FOR ACUTE DEHYDRATION TREATMENT: BRAIN CT IV FLUIDS (ER-PRESENT) IV ROCEPHIN (ER-PRESENT) (This form is maintained as a part of the permanent medical record) 2014 [employer]. All Rights Reserved [facility]
[2018-10-16] MEDS: cefTRIAXone\\ROCEPHIN 1 GM in Sodium Chloride 0.9% 100 ML IVPB SCH (16:20)
[2018-10-16] MEDS ORDERED: Docusate 100 MG CAP PO SCH (21:00)
--- NOTE | 2018-10-17 04:23 | DIS ---
DATE OF ADMISSION: 10/14/2018 DATE OF DISCHARGE: 10/16/2018 DISCHARGE DISPOSITION: To home with home health. PRIMARY DISCHARGE DIAGNOSES: 1. Severe dehydration and acute encephalopathy, both resolved. 2. 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 3. Diabetes mellitus type 2. 4. Progressive deconditioning with advanced age and dementia. 5. Failure to thrive. 6. History of cerebrovascular accident. 7. Deconditioning. 8. Hypothyroidism. 9. Dyslipidemia. 10. Hypertension. PROCEDURES DONE DURING HOSPITALIZATION: Chest x-ray done showed no acute infiltrate. CT brain done showed no acute intracranial abnormality, but had multiple old strokes visibile on the CAT scan. Urine culture grew multiple organisms likely colonization. Blood culture one of two grew coag-negative Staph likely contamination. Influenza A and B antigens were negative. Had a white count of 10 with hemoglobin and hematocrit of 10 and 29, platelet count 268 with 70% neutrophils. BUN and creatinine 12 and 0.9. Troponin I was indeterminate, peaking up to 0.07. CK-MB 1.3. DISCHARGE MEDICATIONS: 1. Levothyroxine 75 mcg p.o. daily. 2. Toprol XL 50 mg twice daily. 3. Aspirin 81 mg p.o. daily. 4. Dulcolax suppository q.8 hourly p.r.n. 5. Megace 40 mg p.o. daily, which was initiated on this admission to stimulate appetite. 6. MiraLax 17 g daily. ALLERGIES: ALLERGIC TO IODINE. DISCHARGE PLAN: The patient is to follow up with Dr. Mcgrath, her primary care physician, in 1 week. BRIEF COURSE DURING HOSPITALIZATION: The patient initially was admitted on the with complaints of generalized weakness, suspicion for urinary tract infection, acute encephalopathy, and severe dehydration. The patient has chronic Burgess catheter and initially, UA was positive for UTI. Cultures revealed multiple bacteria, likely colonization of her Burgess. She was gently hydrated for severe dehydration. The patient has poor appetite and was counseled multiple times. She was finally placed on Megace at the time of discharge for appetite stimulant. The patient is 83 years old and has been chronically deconditioning from last 4 to 6 weeks with poor oral intake and weakness. I have had multiple discussions with the patient's daughter at bedside with regard to palliative care and hospice, they are moving towards the same. The patient's daughter is clearly aware if the patient does not eat or drink enough, she will need rehospitalization and they would like to discuss this with her primary care physician, Dr. Mcgrath, in the next followup. Home health with PT will be arranged on discharge today. Please see a [id number] documentation for the day of discharge on [employer]. Job ID: [id number]
--- NOTE | 2018-10-17 14:59 | EKG ---
Test Reason : WEAKNESS Blood Pressure : / mmHG Vent. Rate : 078 BPM Atrial Rate : 078 BPM P-R Int : 000 ms QRS Dur : 078 ms QT Int : 394 ms P-R-T Axes : 000 -55 -42 degrees QTc Int : 449 ms Accelerated Junctional rhythm Left axis deviation Septal infarct , age undetermined T wave abnormality, consider anterior ischemia Abnormal ECG Confirmed by MIRZA MILLS ([id number]), editor trade journal LOIS COLON ([id number]) on 10/17/2018 2:58:47 PM Referred By: Confirmed By:MIRZA MILLS
== END 2018-10-16 15:38 | disposition home health service (06) | DRG 641 ==
LOC: ERS 11:02 → ERHOLD 14:17 → T4-B 16:49 → OBSVTOIN 10-14 11:03
PROVIDERS: ADMIT Internal Medicine; ATTEND Internal Medicine
DX: E86.0 Dehydration (principal); G93.40 Encephalopathy, unspecified; E11.9 Type 2 diabetes mellitus without complications; Z86.73 Personal history of transient ischemic attack (TIA), and cerebral infarction without residual deficits; R62.7 Adult failure to thrive; R53.81 Other malaise; E03.9 Hypothyroidism, unspecified; E78.5 Hyperlipidemia, unspecified; I10 Essential (primary) hypertension; Z66 Do not resuscitate
CPT/HCPCS: 36415; 36416; 70450; 71045; 80048; 80053; 81003; 81015; 82553; 82607; 83605; 84484; 85025; 87040; 87077; 87086; 87149; 87804; 93005; 96361; 96365; G8978-GP-CM; G8979-GP-CK; G8987-GO-CM; G8988-GO-CJ; J0696; J7050

== ENCOUNTER 2018-10-30 15:41 | Inpatient (IN) | payer MEDICARE ==
[2018-10-30 16:11] LABS: Bilirubin Small (Negative); Blood, Urine Trace (Negative); Clarity CLOUDY (Clear); Glucose, Urine (Dipstick) 100 mg/dL (Negative); Leukocyte Small (Negative); Nitrite Negative (Negative); Protein, Urine (Dipstick) 100 mg/dL (Neg-Trace); Specific Gravity, Urine 1.021 (1.002-1.036); pH, Urine 5.5 (5.0-9.0)
[2018-10-30 16:13] LABS: Bacteria/HPF None Seen HPF (None Seen); RBC/HPF None Seen HPF (0-3)
[2018-10-30] MEDS ORDERED: Mineral Oil ENEMA PR SCH (16:15)
[2018-10-30 16:17] LABS: Yeast-AUWi Flag 35.1 (0-25.0)
[2018-10-30 16:25] LABS: #Basophils 0.1 thou/uL (0.0-0.2); #Eosinphils 0.2 thou/uL (0.0-0.7); #Lymphocytes 2.1 thou/uL (1.20-3.40); #Monocytes 0.8 thou/uL (0.11-0.59); #Neutrophils 6.2 thou/uL (1.40-6.50); %Basophils 0.8 % (0.0-1.0); %Eosinophils 2.3 % (0.0-10.0); %Monocytes 8.2 % (0.0-10.0); %Neutrophils 66.7 % (42.0-75.0); Hemoglobin 12.1 g/dL (12.0-16.0); Mean Corpuscular HGB CONC 33.4 g/dL (32.0-36.0); Mean Corpuscular Hemoglobin 30.7 pg (27.0-31.0); Mean Corpuscular Volume 91.7 fL (78.0-98.0); Mean Platelet Volume 8.2 fL (7.4-10.4); Platelet Count 210 thou/uL (130-400); RBC Distribution Width 13.4 % (11.5-14.5); Red Blood Cell (RBC) Count 3.95 mill/uL (4.20-5.40); White Blood Cell (WBC) Count 9.4 thou/uL (4.8-10.8)
[2018-10-30 16:26] LABS: Hyaline Casts/LPF 0-3 HYALINE CAST LPF (0-3 Hyaline); Other Casts/LPF None Seen LPF (0-3 Hyaline)
[2018-10-30 16:44] LABS: ALT (SGPT) 9 U/L (8-55); AST (SGOT) 14 U/L (5-34); Albumin 3.2 g/dL (3.4-4.8); Alkaline Phosphatase 108 U/L (40-150); Anion Gap 12 mmol/L (10-20); BUN (Urea Nitrogen) 13 mg/dL (9.8-20.1); Bilirubin, Total 0.5 mg/dL (0.2-1.2); Calc. Creatinine Clearance 0 mL/min (70-130); Calcium 9.1 mg/dL (7.8-10.44); Carbon Dioxide 26 mmol/L (23-31); Chloride 100 mmol/L (98-107); Estimated GFR-MDRD 60; Globulin 3.3 g/dL (2.4-3.5); Glucose 245 mg/dL (83-110); Potassium 3.7 mmol/L (3.5-5.1); Protein, Total 6.5 g/dL (6.0-8.3); Sodium 134 mmol/L (136-145)
[2018-10-30 17:04] LABS: CKMB 0.8 ng/mL (0-6.6)
--- NOTE | 2018-10-30 18:51 | RAD ---
PORTABLE CHEST: 10/30/18 HISTORY: UTI. COMPARISON: 10/13/18. Eventration of the right hemidiaphragm. Density in the left lung base obscures the CP angle and later al pleura. Upper lungs are clear with mild vascular engorgement. Cardiomegaly. Prominent aortic calcification. IMPRESSION: Evidence of left basilar atelectasis or infiltrate and possible left effusion. POS: JONATHON
[2018-10-30] MEDS ORDERED: Ondansetron PF 4 MG/2 ML Vial IVP PRN (20:30)
[2018-10-30] MEDS ORDERED: Sodium Chloride 0.9% 1,000 ML IV SCH (20:30)
[2018-10-30] MEDS ORDERED: Ondansetron ODT 4 MG TAB SL PRN (20:30)
[2018-10-30 21:15] LABS: Troponin I 0.026 ng/mL (< 0.028)
[2018-10-31 00:13] LABS: Troponin I 0.022 ng/mL (< 0.028)
[2018-10-31] MEDS: cefTRIAXone\\ROCEPHIN 1 GM in Sodium Chloride 0.9% 100 ML IVPB SCH (05:35)
--- NOTE | 2018-10-31 10:27 | ULT ---
BILATERAL LOWER EXTREMITY VENOUS ULTRASOUND: Date: 10/31/18 COMPARISON: None. HISTORY: Left lower extremity pain and edema. TECHNIQUE: Multiplanar Perez scale and color Doppler images were obtained in a bilateral lower extremity venous u ltrasound. Spectral analysis of the Doppler waveforms were performed. FINDINGS: The right common femoral vein, profunda femoral vein, superficial femoral vein, and popliteal vein ar e normal in appearance without visible thrombus. These vessels demonstrate normal compression, flow, and augmentation. The right posterior tibial vein and greater saphenous vein are also patent. There is occlusive thrombus in the left leg extending from the common femoral vein down to the taxi cab driver ior tibial vein. This involves the popliteal vein and superficial femoral vein. The greater saphenous vein is patent on the left. IMPRESSION: Extensive left lower extremity deep venous thrombosis. Patient's nurse was notified of the findings by an sterile processing technologist at 1002 hours on 10/31/18. CODE CR. POS: JOSE LUIS
[2018-10-31] MEDS: Sodium Chloride 0.9% 1,000 ML IV SCH (12:48)
--- NOTE | 2018-10-31 13:37 | EKG ---
Test Reason : Blood Pressure : / mmHG Vent. Rate : 070 BPM Atrial Rate : 070 BPM P-R Int : 170 ms QRS Dur : 084 ms QT Int : 386 ms P-R-T Axes : 038 -50 -12 degrees QTc Int : 416 ms Normal sinus rhythm Left axis deviation Anterior infarct , age undetermined Abnormal ECG Confirmed by BETTYE LI DO ([id number]), editor greeting card HARI MARIE ([id number]) on 10/31/2018 1:37:34 PM Referred By: Confirmed By:BETTYE LI DO
--- NOTE | 2018-10-31 13:54 | CON ---
DATE OF CONSULTATION: 10/31/2018 REQUESTING PROVIDER: JOSEPHINE Wall under the direction of Dr. Navin Davison of the Hospitalist Service. REASON FOR CONSULTATION: Deep venous thrombosis with contraindication anticoagulation. HISTORY OF PRESENT ILLNESS: The patient is an 83-year-old woman, who this past summer had a left hemispheric stroke and had a small area of hemorrhagic conversion of that stroke. She for the most part is bed-bound, but has done fairly well given her cerebrovascular disease and she has been in and out of the hospital several times over the last few months with weakness. During this hospitalization, it was noted an asymmetry in the size of her extremities and she reported that over the last few days, her left leg had swelled, become painful and had somewhat reddish discoloration to it. She feels better and her leg is improved overnight, but venous Dopplers demonstrated extensive deep venous thrombosis involving the left lower extremity from the common femoral level down into the posterior tibial vein. PAST MEDICAL HISTORY: Significant for hypertension, diabetes, hyperlipidemia, hypothyroidism, multiple cerebrovascular accidents, and urinary retention. MEDICATIONS: Her home medications are: 1. Toprol-XL. 2. Synthroid. 3. Aspirin. 4. Macrobid. ALLERGIES: SHE REPORTS AN ALLERGY TO IODINE. SOCIAL HISTORY: She does not smoke. REVIEW OF SYSTEMS: Notable for her relatively bed-bound status and her multiple presentations with weakness. PHYSICAL EXAMINATION: GENERAL: She is an alert, lucid lady, who appears about her stated age. VITAL SIGNS: Heart rate is 85, blood pressure 142/63, on 2 L nasal cannula her O2 sats in the mid 90s, temperature is 97.8 and T-max at this presentation is her current temperature of 97.8. EXTREMITIES: Her left lower extremity is noticeably larger than her right lower extremity with some mild pitting edema with minimal tenderness. There is no erythema. LABORATORY DATA: Laboratory exam showed hemoglobin 12.1, platelets of 210,000. D-dimer of greater than 20. BUN of 13, creatinine of 0.89, and glucose of 245. Her venous Doppler shows her extensive left-sided DVT with no thrombus seen directly or indirectly suggested in the right lower extremity. IMPRESSION AND RECOMMENDATIONS: This bed-bound lady has relative contraindication to anticoagulation, given her small area of hemorrhagic conversion of the stroke about 5 months ago and although bit of a stretch of the classic indications for filter placement. Given the absence of any pulmonary emboli, I think it is a reasonable consideration as her risk factors for DVTs are not going to get any better and she does have relative contraindication to anticoagulation. I have explained this to her daughter and her. The daughter is entirely agreeable. The patient is perfectly capable of making her own decisions at this point and it is undecided how she wishes to proceed and would like to have more time to consider her options. Job ID: [id number]
[2018-10-31] MEDS ORDERED: Dextrose 50% Abboject 50 ML SYRINGE IVP PRN (17:20)
[2018-10-31] MEDS ORDERED: Dextrose 5% in Water 1,000 ML IV PRN (17:20)
[2018-10-31] MEDS: HumaLOG 300 UNITS/3 ML VIAL SC PRN (17:49)
--- NOTE | 2018-10-31 18:02 | HP ---
CHIEF COMPLAINT: Weakness and nonambulatory x1 week. 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 Per her daughter, she never fully recovered from her admission in 05/2018 at which time she was admitted with a subacute stroke involving the anterior left frontal lobe and left anterior insular cortex with a new focus of hemorrhage involving the anterior left insular cortex. Since that admission, her daughter states she never fully recovered. Her decline, the patient feels, was precipitated by a flu vaccine given around June or July. Her daughter began to first note a slightly reduced appetite. She then began skipping meals altogether until she refused to eat. She has always had some left-sided weakness due to previous polio as well as previous CVA. As her activity level has diminished, she has become increasingly generally weaker with worsening weakness on the left side. For the last 2 weeks , she has been bed-bound. A Burgess catheter was placed at home, and it is unclear how long she has had it for. She did have Physical Therapy come to her home for the first time yesterday. According to her daughter, she was noted to have a low saturation of 82% at home yesterday. She was advised to seek medical attention, prompting her to come in. The patient denies any chest pain, palpitations, or shortness of breath. She has had no fevers, chills, or sweats. Denies any headaches or dizziness. She feels generally unwell, but mainly due to weakness and fatigue. The patient admits to minimal oral and fluid intake. She reports darkening of her urine. She has had reduced bowel output and denies any diarrhea. She is otherwise without complaints. The patient was admitted for further investigation of her weakness. She has undergone a chest x-ray while in the ED showing evidence of left basilar atelectasis or infiltrate and possible left effusion. She was transferred to the [facility]. Upon examination by the nurse, it was found that she was experiencing significant swelling and discomfort in the left lower extremity. A D-dimer was checked and greater than 20. She also underwent bilateral Dopplers demonstrating an extensive left lower extremity deep venous thrombosis extending from the common femoral vein down to the posterior tibial vein, also involving the popliteal vein and superficial femoral vein. The patient denies any pain at present. The sensation in both lower extremities is normal. REVIEW OF SYSTEMS: All other review of systems apart from those in HPI are negative. PAST MEDICAL HISTORY: 1. Previous CVA. 2. Coronary artery disease. 3. Previous DE. 4. Polio with residual left-sided weakness. 5. Hypertension. 6. Diabetes. 7. Hyperlipidemia. 8. Hypothyroidism. 9. Multiple CVAs. 10. Urinary retention. SOCIAL HISTORY: She denies smoking. No alcohol use or illicit drug use. PHYSICAL EXAMINATION: VITAL SIGNS: Temperature 97.8, pulse 85, respirations 18, O2 saturation 96% on 2 L oxygen by nasal cannula, blood pressure 142/63. GENERAL APPEARANCE: The patient appears fatigued, but in no acute distress. HEENT: Normocephalic and atraumatic. Pupils are equal, round, and reactive to light. Sclerae are anicteric. Oropharynx is clear. Mucous membranes are dry. NECK: Supple without lymphadenopathy. LUNGS: Notable for rub in the left lower lung base. CARDIAC: Regular rate and rhythm. ABDOMEN: Soft, nontender, and nondistended. Normal bowel sounds present. No renal angle tenderness. EXTREMITIES: Left lower extremity notably swollen without any pitting edema. Pulses present bilaterally and strong. Normal sensation bilaterally as well as color. NEUROLOGIC: Alert and oriented x3. ALLERGIES: SHE REPORTS AN ALLERGY TO IODINE. CURRENT MEDICATIONS: 1. Nitrofurantoin 100 mg p.o. twice daily. 2. Metoprolol succinate 50 mg p.o. b.i.d. 3. Levothyroxine 75 mcg p.o. daily. 4. Aspirin 81 mg p.o. daily. LABORATORY DATA: White blood count 9.4, hemoglobin 12.1, hematocrit 36.2, platelets 210. D-dimer greater than 20. Sodium 134, potassium 3.7, BUN 13, creatinine 0.9, eGFR 60, calcium 9.1, total bilirubin 0.5, AST 14, ALT 9, alkaline phosphatase 108. CK-MB 0.8. TnI of 0.030, repeat was 0.022. Urinalysis, elkin in color and cloudy, pH 5.5, 100 urine protein, glucose 100, ketones 40, blood trace, nitrites negative, bilirubin small, leukocyte esterase small, red blood cells none, white blood cells 4 to 6, no bacteria seen, 3+ uric acid. IMAGING DATA: Chest x-ray on 10/30/2018, evidence of left basilar atelectasis or infiltrate with possible left effusion. She had a venogram on 10/31/2018, extensive left lower extremity deep venous thrombosis. ASSESSMENT AND PLAN: The patient is admitted to hospital for the following medical conditions. 1. Extensive deep vein thrombosis noted on left lower extremity Doppler. Right lower extremity without any deep vein thrombosis. Given recent small hemorrhagic stroke in 05/2018, we will hold anticoagulation. After discussing with Dr. Manzanares, he is in agreement that she could possibly be a candidate for inferior vena cava filter placement. Cardiovascular consultation placed. 2. Generalized weakness. The patient is at risk for falls. We will place PT/OT consult. 3. Urinary retention/decreased urinary output. The patient is clinically dehydrated. She has had significantly reduced oral intake in the last several weeks. Continue Burgess catheter. Continue IV hydration. Maintain n.p.o. for possible inferior vena cava filter placement pending cardiovascular eval. 4. Gastrointestinal prophylaxis. The patient's case was discussed with Dr. Manzanares who is in agreement with plan of care as described above. Job ID: [id number] Pt seen and examined in conjunction with Karla Diamond PA-C on the day of service. I have seen and evaluated the patient and reviewed all documentations. I agree with the findings and plan as outlined in his note and participated in Medical decision-making. Anatoly Manzanares M.D. [place]
[2018-10-31] MEDS ORDERED: Ondansetron PF 4 MG/2 ML Vial IVP PRN (18:05)
[2018-10-31] MEDS ORDERED: Ondansetron ODT 4 MG TAB PO PRN (18:05)
--- NOTE | 2018-10-31 18:37 | PDOC.EVN ---
Event Note - Event Note Event Note: Patient complaining of new left sided chest pain. Has extensive LLE dvt, advised IVC filter which she has declined. Fully understands risks of DVT/PE. I have initiated discussion re: advanced directives. At present she wants everything done per her daughters wishes. Daughter would like to follow patients wishes. They are discussing this further. She is no longer appropriate for obs and is transferred to inpatient as per discussion with Dr. Manzanares. Patient appears lethargic but easily woken and answering questions appropriately. Not tachy and with no respiratory distress at present. Dr. Manzanares aware. He will see her tomorrow morning.
[2018-10-31] MEDS: Acetaminophen 325 MG TAB PO PRN (18:42)
[2018-11-01] MEDS: Sodium Chloride 0.9% 1,000 ML IV SCH ×2 (01:17→15:53)
[2018-11-01 05:29] LABS: #Basophils 0.1 thou/uL (0.0-0.2); #Eosinphils 0.5 thou/uL (0.0-0.7); #Neutrophils 5.9 thou/uL (1.40-6.50); %Basophils 0.7 % (0.0-1.0); %Eosinophils 5.1 % (0.0-10.0); %Lymphocytes 21.2 % (21.0-51.0); %Monocytes 10.5 % (0.0-10.0); %Neutrophils 62.5 % (42.0-75.0); Hemoglobin 9.7 g/dL (12.0-16.0); Mean Corpuscular HGB CONC 33.1 g/dL (32.0-36.0); Mean Corpuscular Hemoglobin 30.7 pg (27.0-31.0); Mean Corpuscular Volume 92.6 fL (78.0-98.0); Mean Platelet Volume 8.8 fL (7.4-10.4); Platelet Count 155 thou/uL (130-400); RBC Distribution Width 13.5 % (11.5-14.5); Red Blood Cell (RBC) Count 3.18 mill/uL (4.20-5.40); White Blood Cell (WBC) Count 9.5 thou/uL (4.8-10.8)
[2018-11-01 05:36] LABS: Anion Gap 10 mmol/L (10-20); BUN (Urea Nitrogen) 22 mg/dL (9.8-20.1); Calc. Creatinine Clearance 43 mL/min (70-130); Calcium 8.3 mg/dL (7.8-10.44); Carbon Dioxide 26 mmol/L (23-31); Chloride 109 mmol/L (98-107); Estimated GFR-MDRD 52; Glucose 165 mg/dL (83-110); Potassium 3.5 mmol/L (3.5-5.1); Sodium 141 mmol/L (136-145)
[2018-11-01] MEDS: cefTRIAXone\\ROCEPHIN 1 GM in Sodium Chloride 0.9% 100 ML IVPB SCH (05:36)
[2018-11-01] MEDS: Levothyroxine Sodium 75 MCG TAB PO SCH (05:37)
[2018-11-01] MEDS: HumaLOG 300 UNITS/3 ML VIAL SC PRN (05:57)
--- NOTE | 2018-11-01 12:20 | PDOC.PN ---
- Subjective Encounter Start Date: 11/01/18 Encounter Start Time: 09:45 -: old records requested/rev PT seen and examined, chart reviewed in its entirety, this is my first visit with this patient. admittf or DVT LLE, pt refusing IVC filter. discussed risks and benefits of anticoagularion, still start lovenox now and discuss with pt when she is more awake. No F/C, no N/V/d/C, no overnight events ROS not obtainable, pt too sleepy - Objective MAR Reviewed: Yes Vital Signs & Weight: Vital Signs (12 hours) Temp Pulse Resp BP BP Pulse Ox 11/01/18 11:37 98.4 F 86 18 151/68 H 94 L 11/01/18 07:30 99 11/01/18 07:25 98.2 F 82 18 135/67 99 11/01/18 04:00 98.1 F 81 20 127/64 95 Weight Admit Weight 150 lb Weight 150 lb I&O: 10/31/18 11/01/18 11/02/18 06:59 06:59 06:59 Intake Total 627 1028 Output Total 250 325 Balance 377 703 Result Diagrams: 11/01/18 04:35 11/01/18 04:35 Additional Labs: Accuchecks 11/01/18 10/31/18 10/31/18 05:35 20:26 17:24 POC Glucose 159 H 177 H 249 H 10/31/18 10:45 POC Glucose 254 H Radiology Reviewed by me: Yes EKG Reviewed by me: Yes Phys Exam - Physical Examination Constitutional: NAD HEENT: PERRLA, moist MMs, sclera anicteric, oral pharynx no lesions Neck: no nodes, no JVD, supple, full ROM Respiratory: no wheezing, no rales, no rhonchi, clear to auscultation bilateral Cardiovascular: RRR, no significant murmur, no rub Gastrointestinal: soft, non-tender, no distention, positive bowel sounds Musculoskeletal: edema present LLE below knee, RLE without edema Neurological: non-focal, normal sensation, moves all 4 limbs Lymphatic: no nodes Psychiatric: normal affect, A&O x 3 Skin: no rash, normal turgor, cap refill <2 seconds Dx/Plan (1) DVT (deep venous thrombosis) Code(s): I82.409 - ACUTE EMBOLISM AND THOMBOS UNSP DEEP VN UNSP LOWER EXTREMITY Status: Acute Qualifiers: DVT location: lower extremity Affected thrombotic vein of extremity: unspecified vein of extremity Chronicity: acute Laterality: left Qualified Code(s): I82.402 - Acute embolism and thrombosis of unspecified deep veins of left lower extremity (2) DM type 2 (diabetes mellitus, type 2) Status: Chronic Qualifiers: Diabetes mellitus senior care insulin use: without senior care use Diabetes mellitus complication status: with unspecified complications Qualified Code(s) : E11.8 - Type 2 diabetes mellitus with unspecified complications (3) Dyslipidemia Code(s): E78.5 - HYPERLIPIDEMIA, UNSPECIFIED Status: Chronic (4) H/O: CVA (cerebrovascular accident) Code(s): Z86.73 - PRSNL HX OF TIA (TIA), AND CEREB INFRC W/O RESID DEFICITS Status: Chronic Comment: has had b/l hemisphere cva's worse on left, including cerebellar cva (5) Hypertension Code(s): I10 - ESSENTIAL (PRIMARY) HYPERTENSION Status: Chronic Qualifiers: Hypertension type: essential hypertension Qualified Code(s): I10 - Essential (primary) hypertension (6) Hypothyroidism Code(s): E03.9 - HYPOTHYROIDISM, UNSPECIFIED Status: Chronic Qualifiers: Hypothyroidism type: unspecified Qualified Code(s): E03.9 - Hypothyroidism , unspecified (7) Physical deconditioning Code(s): R53.81 - OTHER MALAISE Status: Chronic - Plan cont current plan of care, plan discussed w/ family, PT/OT, out of bed/ambulate * .
[2018-11-01] MEDS ORDERED: hydrALAZINE 20 MG/ML VIAL SLOW IVP PRN (17:55)
[2018-11-01] MEDS ORDERED: Enoxaparin Sodium 60 MG/0.6 ML SYRINGE SC SCH (21:00)
[2018-11-01] MEDS: Acetaminophen 325 MG TAB PO PRN (21:40)
[2018-11-01] MEDS: Famotidine 20 MG TAB PO SCH (21:40)
[2018-11-01] MEDS: Enoxaparin Sodium 80 MG/0.8 ML SYRINGE SC SCH (21:40)
[2018-11-02] MEDS: cefTRIAXone\\ROCEPHIN 1 GM in Sodium Chloride 0.9% 100 ML IVPB SCH (05:26)
[2018-11-02] MEDS: Levothyroxine Sodium 75 MCG TAB PO SCH (05:26)
[2018-11-02 06:19] LABS: #Basophils 0.1 thou/uL (0.0-0.2); #Eosinphils 0.4 thou/uL (0.0-0.7); #Monocytes 0.9 thou/uL (0.11-0.59); #Neutrophils 7.4 thou/uL (1.40-6.50); %Basophils 0.6 % (0.0-1.0); %Eosinophils 3.5 % (0.0-10.0); %Lymphocytes 18.7 % (21.0-51.0); %Monocytes 8.5 % (0.0-10.0); %Neutrophils 68.7 % (42.0-75.0); Hemoglobin 10.5 g/dL (12.0-16.0); Mean Corpuscular HGB CONC 33.1 g/dL (32.0-36.0); Mean Corpuscular Hemoglobin 30.6 pg (27.0-31.0); Mean Corpuscular Volume 92.4 fL (78.0-98.0); Mean Platelet Volume 8.3 fL (7.4-10.4); Platelet Count 174 thou/uL (130-400); RBC Distribution Width 13.7 % (11.5-14.5); Red Blood Cell (RBC) Count 3.42 mill/uL (4.20-5.40); White Blood Cell (WBC) Count 10.8 thou/uL (4.8-10.8)
[2018-11-02 06:42] LABS: Anion Gap 12 mmol/L (10-20); BUN (Urea Nitrogen) 19 mg/dL (9.8-20.1); Calc. Creatinine Clearance 54 mL/min (70-130); Calcium 8.4 mg/dL (7.8-10.44); Carbon Dioxide 22 mmol/L (23-31); Chloride 107 mmol/L (98-107); Estimated GFR-MDRD 64; Glucose 176 mg/dL (83-110); Potassium 3.6 mmol/L (3.5-5.1); Sodium 137 mmol/L (136-145)
[2018-11-02] MEDS: Enoxaparin Sodium 80 MG/0.8 ML SYRINGE SC SCH (09:11)
[2018-11-02 11:32] LABS: Hemoglobin 10.6 g/dL (12.0-16.0); Platelet Count 173 thou/uL (130-400)
--- NOTE | 2018-11-02 13:18 | PDOC.PN ---
- Subjective Encounter Start Date: 11/02/18 Encounter Start Time: 13:00 Subjective: f/u for LLE DVT on Lovenox as well as UTI on Rocephin. No new events -: but LLE remains swollen. Appetite decreased. - Objective Resuscitation Status - Order Detail: 11/02/18 09:03 Resuscitation Status Routine Resuscitation Status: DNAR: NO Resuscitation Discussed with: Patient and daughter JUAN DIEGO Reviewed: Yes Vital Signs & Weight: Vital Signs (12 hours) Temp Pulse Resp BP Pulse Ox 11/02/18 12:10 98.4 F 81 18 179/84 H 98 11/02/18 09:16 80 137/64 11/02/18 07:55 100 11/02/18 07:28 98.3 F 80 18 186/81 H 100 11/02/18 04:00 97.7 F 82 16 128/67 95 Weight Admit Weight 150 lb Weight 154 lb 14.4 oz I&O: 11/01/18 11/02/18 11/03/18 06:59 06:59 06:59 Intake Total 1028 1350 Output Total 325 600 Balance 703 750 Result Diagrams: 11/02/18 11:25 11/02/18 11:25 Additional Labs: Accuchecks 11/02/18 11/01/18 11/01/18 05:37 20:19 17:17 POC Glucose 169 H 215 H 181 H Radiology Reviewed by me: Yes (LLE Sono - extensive LLE DVT) EKG Reviewed by me: Yes (Tele - SR) Phys Exam - Physical Examination Constitutional: NAD alert, talkative HEENT: PERRLA, sclera anicteric, oral pharynx no lesions Neck: no nodes, no JVD, supple, full ROM Respiratory: no wheezing, no rales, no rhonchi, clear to auscultation bilateral S1, S2 Cardiovascular: RRR, no significant murmur, no rub, gallop Gastrointestinal: soft, non-tender, no distention, positive bowel sounds LLE with non-pitting edema diffusely Musculoskeletal: pulses present LLE with decreased ROM Neurological: normal sensation, moves all 4 limbs Skin: normal turgor, cap refill <2 seconds Dx/Plan (1) DVT (deep venous thrombosis) Code(s): I82.409 - ACUTE EMBOLISM AND THOMBOS UNSP DEEP VN UNSP LOWER EXTREMITY Status: Acute Qualifiers: DVT location: lower extremity Affected thrombotic vein of extremity: unspecified vein of extremity Chronicity: acute Laterality: left Qualified Code(s): I82.402 - Acute embolism and thrombosis of unspecified deep veins of left lower extremity Comment: Currently receiving Lovenox, convert to Eliquis 10mg BID today, no IVC filter (2) UTI (urinary tract infection) due to Enterococcus Code(s): N39.0 - URINARY TRACT INFECTION, SITE NOT SPECIFIED; B95.2 - ENTEROCOCCUS THE CAUSE OF DISEASES CLASSIFIED ELSEWHERE Status: Acute Comment: Chronic indwelling Burgess, change to Levaquin 500mg daily, d/c Rocephin (3) Chronic indwelling Burgess catheter Code(s): Z92.89 - PERSONAL HISTORY OF OTHER MEDICAL TREATMENT Status: Chronic Comment: changes catheter qmonthly (4) Dementia Code(s): F03.90 - UNSPECIFIED DEMENTIA WITHOUT BEHAVIORAL DISTURBANCE Status: Chronic Qualifiers: Dementia type: unspecified type Dementia behavioral disturbance: without behavioral disturbance Qualified Code(s): F03.90 - Unspecified dementia without behavioral disturbance Comment: Appears near baseline, supportive (5) FTT (failure to thrive) in adult Status: Chronic Comment: Multifactorial given co-morbid status, deconditioning , PT evaluation (6) Physical deconditioning Code(s): R53.81 - OTHER MALAISE Status: Chronic Comment: See above, fall risk precautions - Plan plan discussed w/ family, continue antibiotics, PT/OT, director social service, out of bed/ambulate Stable currently -: Convert to Eliquis 10mg po BID -: D/C Lovenox -: PT evaluation for functional assessment -: Lab: check hemoccult * Likely home in 24h
--- NOTE | 2018-11-02 16:18 | CT ---
BRAIN CT WITHOUT IV CONTRAST: HISTORY: An 83-year-old female with a history of stroke alert, altered mental status. Started Lovenox recentl y. COMPARISON: 10/13/2018. FINDINGS: Severe atrophy and chronic white matter ischemic changes. Old stable bilateral encephalomalacic foci including the left frontal, right frontoparietal, and left cerebellar regions all consistent with ol d infarcts. No mass or bleed or other significant acute process. IMPRESSION: Old areas of encephalomalacia bilaterally, evidence for bilateral old infarcts with severe atrophy an d chronic white matter ischemic change. no mass or bleed. Stable from 10/13/2018. Findings were discussed with Dr. Davison at 2:28 p.m. CODE CR POS: JOSE LUIS
[2018-11-02] MEDS: HumaLOG 300 UNITS/3 ML VIAL SC PRN (18:09)
[2018-11-02] MEDS: Acetaminophen 325 MG TAB PO PRN (20:48)
[2018-11-02] MEDS: Apixaban 5 MG TAB PO SCH (20:49)
[2018-11-02] MEDS: Famotidine 20 MG TAB PO SCH (20:49)
[2018-11-03] MEDS: Levothyroxine Sodium 75 MCG TAB PO SCH (06:09)
[2018-11-03] MEDS: Apixaban 5 MG TAB PO SCH ×2 (09:01→19:52)
--- NOTE | 2018-11-03 11:19 | PDOC.PN ---
- Subjective Encounter Start Date: 11/03/18 Encounter Start Time: 11:05 Subjective: f/u for LLE DVT on Eliquis. Still weak and has not ambulated. According -: to daughter has not ambulated in over 2 weeks. Still with intermittent -: confusion. - Objective Resuscitation Status - Order Detail: 11/02/18 09:03 Resuscitation Status Routine Resuscitation Status: DNAR: NO Resuscitation Discussed with: Patient and daughter MAR Reviewed: Yes Vital Signs & Weight: Vital Signs (12 hours) Temp Pulse Resp BP Pulse Ox 11/03/18 08:00 98 11/03/18 07:41 98.1 F 75 15 136/63 98 11/03/18 04:00 97.8 F 76 16 134/63 95 11/03/18 00:00 96.0 F L 88 20 121/57 L 97 Weight Admit Weight 150 lb Weight 155 lb 4.8 oz I&O: 11/02/18 11/03/18 11/04/18 06:59 06:59 06:59 Intake Total 1350 350 Output Total 600 525 Balance 750 -175 Result Diagrams: 11/02/18 11:25 11/02/18 11:25 Additional Labs: Accuchecks 11/03/18 11/02/18 11/02/18 06:00 20:35 17:10 POC Glucose 163 H 212 H 225 H 11/02/18 11/02/18 14:02 11:15 POC Glucose 232 H 199 H Microbiology 10/30/18 15:57 Urine moreno catheter Urine Culture - Final Enterococcus faecium Radiology Reviewed by me: Yes (CT brain - no acute process) EKG Reviewed by me: Yes (Tele - SR) Phys Exam - Physical Examination Constitutional: NAD HEENT: PERRLA, sclera anicteric, oral pharynx no lesions Neck: no nodes, no JVD, supple, full ROM Respiratory: no wheezing, no rales, no rhonchi, clear to auscultation bilateral S1, S2 Cardiovascular: RRR, no significant murmur, no rub, gallop Gastrointestinal: soft, non-tender, no distention, positive bowel sounds LLE edema, non-pitting edema Musculoskeletal: pulses present, edema present Neurological: normal sensation, moves all 4 limbs Skin: normal turgor, cap refill <2 seconds Dx/Plan (1) DVT (deep venous thrombosis) Code(s): I82.409 - ACUTE EMBOLISM AND THOMBOS UNSP DEEP VN UNSP LOWER EXTREMITY Status: Acute Qualifiers: DVT location: lower extremity Affected thrombotic vein of extremity: unspecified vein of extremity Chronicity: acute Laterality: left Qualified Code(s): I82.402 - Acute embolism and thrombosis of unspecified deep veins of left lower extremity Comment: Eliquis 10mg BID today, no IVC filter, prison anticoagulation anticipated (2) UTI (urinary tract infection) due to Enterococcus Code(s): N39.0 - URINARY TRACT INFECTION, SITE NOT SPECIFIED; B95.2 - ENTEROCOCCUS THE CAUSE OF DISEASES CLASSIFIED ELSEWHERE Status: Acute Comment: Chronic indwelling Moreno, change to Levaquin 500mg daily, d/c Rocephin (3) Chronic indwelling Moreno catheter Code(s): Z92.89 - PERSONAL HISTORY OF OTHER MEDICAL TREATMENT Status: Chronic Comment: changes catheter qmonthly (4) Dementia Code(s): F03.90 - UNSPECIFIED DEMENTIA WITHOUT BEHAVIORAL DISTURBANCE Status: Chronic Qualifiers: Dementia type: unspecified type Dementia behavioral disturbance: without behavioral disturbance Qualified Code(s): F03.90 - Unspecified dementia without behavioral disturbance Comment: Appears near baseline, supportive (5) FTT (failure to thrive) in adult Status: Chronic Comment: Multifactorial given co-morbid status, deconditioning , PT evaluation (6) Physical deconditioning Code(s): R53.81 - OTHER MALAISE Status: Chronic Comment: See above, fall risk precautions, maximal assist with sitting, SNF options penidng - Plan plan discussed w/ family, continue antibiotics, PT/OT, social staff worker Stable currently -: PT for mobilization -: CM for SNF options -: Continue Eliquis 10mg BID -: AM lab: H/H, creatinine * .
[2018-11-03] MEDS: HumaLOG 300 UNITS/3 ML VIAL SC PRN (17:52)
[2018-11-03] MEDS: Acetaminophen 325 MG TAB PO PRN (19:52)
[2018-11-03] MEDS: Famotidine 20 MG TAB PO SCH (19:52)
[2018-11-04] MEDS: Levothyroxine Sodium 75 MCG TAB PO SCH (06:21)
[2018-11-04] MEDS: Apixaban 5 MG TAB PO SCH ×2 (08:53→20:55)
[2018-11-04 11:24] LABS: Platelet Count 185 thou/uL (130-400)
--- NOTE | 2018-11-04 17:41 | PDOC.PN ---
- Subjective Encounter Start Date: 11/04/18 Encounter Start Time: 17:30 Subjective: f/u for LLE DVT on Eliquis. No new complaints. Intermittent confusion. -: Overall feeling better, appetite improved. - Objective Resuscitation Status - Order Detail: 11/02/18 09:03 Resuscitation Status Routine Resuscitation Status: DNAR: NO Resuscitation Discussed with: Patient and daughter JUAN DIEGO Reviewed: Yes Vital Signs & Weight: Vital Signs (12 hours) Temp Pulse Resp BP Pulse Ox 11/04/18 16:10 97.5 F L 82 16 146/67 H 96 11/04/18 12:10 98.4 F 71 18 152/72 H 96 11/04/18 08:05 98.1 F 79 16 140/61 95 Weight Admit Weight 150 lb Weight 156 lb 6.4 oz I&O: 11/03/18 11/04/18 11/05/18 06:59 06:59 06:59 Intake Total 350 160 Output Total 525 450 Balance -175 -290 Result Diagrams: 11/04/18 11:08 11/04/18 11:08 Additional Labs: Accuchecks 11/04/18 11/04/18 11/04/18 17:11 11:13 06:18 POC Glucose 180 H 117 H 144 H 11/03/18 11/03/18 20:50 17:24 POC Glucose 137 H 191 H Microbiology 10/30/18 15:57 Urine moreno catheter Urine Culture - Final Enterococcus faecium Laboratory Tests 11/01/18 11/01/18 11/02/18 04:35 04:35 05:54 Hgb 9.7 L Creatinine 1.02 0.84 11/02/18 11/02/18 11/02/18 05:54 11:25 11:25 Hgb 10.5 L 10.6 L Creatinine 1.07 EKG Reviewed by me: Yes (Tele - SR) Phys Exam - Physical Examination Constitutional: NAD HEENT: PERRLA, sclera anicteric, oral pharynx no lesions Neck: no nodes, no JVD, supple, full ROM Respiratory: no wheezing, no rales, no rhonchi, clear to auscultation bilateral S1, S2 Cardiovascular: RRR, no significant murmur, no rub, gallop Gastrointestinal: soft, non-tender, no distention, positive bowel sounds LLE edema Musculoskeletal: pulses present, edema present Neurological: normal sensation, moves all 4 limbs Skin: normal turgor, cap refill <2 seconds Dx/Plan (1) DVT (deep venous thrombosis) Code(s): I82.409 - ACUTE EMBOLISM AND THOMBOS UNSP DEEP VN UNSP LOWER EXTREMITY Status: Acute Qualifiers: DVT location: lower extremity Affected thrombotic vein of extremity: unspecified vein of extremity Chronicity: acute Laterality: left Qualified Code(s): I82.402 - Acute embolism and thrombosis of unspecified deep veins of left lower extremity Comment: Eliquis 10mg BID today, no IVC filter, mcc anticoagulation anticipated (2) UTI (urinary tract infection) due to Enterococcus Code(s): N39.0 - URINARY TRACT INFECTION, SITE NOT SPECIFIED; B95.2 - ENTEROCOCCUS THE CAUSE OF DISEASES CLASSIFIED ELSEWHERE Status: Acute Comment: Chronic indwelling Moreno, change to Levaquin 500mg daily, d/c Rocephin (3) Chronic indwelling Moreno catheter Code(s): Z92.89 - PERSONAL HISTORY OF OTHER MEDICAL TREATMENT Status: Chronic Comment: changes catheter qmonthly (4) Dementia Code(s): F03.90 - UNSPECIFIED DEMENTIA WITHOUT BEHAVIORAL DISTURBANCE Status: Chronic Qualifiers: Dementia type: unspecified type Dementia behavioral disturbance: without behavioral disturbance Qualified Code(s): F03.90 - Unspecified dementia without behavioral disturbance Comment: Appears near baseline, supportive (5) FTT (failure to thrive) in adult Status: Chronic Comment: Multifactorial given co-morbid status, deconditioning , PT evaluation (6) Physical deconditioning Code(s): R53.81 - OTHER MALAISE Status: Chronic Comment: See above, fall risk precautions, maximal assist with sitting, SNF options penidng - Plan plan discussed w/ family, continue antibiotics, PT/OT, nephrology social worker, out of bed/ambulate Stable currently -: Continue Eliquis 10mg BID -: OOB/ambulate with PT -: SNF options pending -: Continue Levaquin 500mg po daily * Likely d/c in 24h
[2018-11-04] MEDS: HumaLOG 300 UNITS/3 ML VIAL SC PRN (17:47)
[2018-11-04] MEDS: Famotidine 20 MG TAB PO SCH (20:55)
[2018-11-05] MEDS: Levothyroxine Sodium 75 MCG TAB PO SCH (05:45)
[2018-11-05] MEDS: Apixaban 5 MG TAB PO SCH (09:16)
[2018-11-05 11:27] VITALS: BMI 29.9
[2018-11-05 13:14] VITALS: BP 144/66; TEMP 98.3
--- NOTE | 2018-11-05 13:47 | DIS ---
DATE OF ADMISSION: 10/31/2018 DATE OF DISCHARGE: 11/05/2018 DISCHARGE DIAGNOSES: 1. Acute deep venous thrombosis of the left lower extremity. 2. Urinary tract infection due to Enterococcus species. 3. Chronic indwelling Burgess catheter. 4. Dementia, likely Alzheimer type. 5. Failure to thrive, multifactorial. 6. Physical deconditioning. 7. Diabetes mellitus, type 2, diet managed. CONSULTATIONS: Dr. Lipscomb with Vascular Surgery Service. PERTINENT LAB AND X-RAY FINDINGS: Sodium ranged between 134 to 141. Troponin I ranged between 0.022 to 0.030. CBC showed a hemoglobin ranging between 9.7 to 12.1. Urine culture dated 10/30/2018, showed 50,000 to 75,000 colonies of Enterococcus faecium, pansensitive. Portable chest x-ray dated 10/30/2018, showed left basilar atelectasis. Bilateral lower extremity venous Doppler study dated 10/31/2018, showed extensive left lower extremity deep venous thrombosis. CT of the brain without contrast dated 11/02/2018, showed encephalomalacia bilaterally without acute infarct. Bilateral chronic white matter ischemic changes noted. Severe cerebral atrophy noted. HOSPITAL COURSE: The patient was initially admitted to the telemetry unit after presenting with progressive weakness and nonambulatory status for approximately 1 week prior to admission. The patient underwent general evaluation including left lower extremity venous Doppler evaluation due to edema, showing extensive deep venous thrombosis of the left lower extremity. The patient was initiated on Lovenox subcutaneously, transitioning to Eliquis 10 mg b.i.d. The patient was evaluated for potential IVC filter placement by Vascular Surgery Service; however, was not deemed an appropriate candidate. The patient was also noted with the urinary tract infection with Enterococcus species in the context of a chronic indwelling Burgess catheter over the last several years. The patient was placed on Levaquin therapy and tolerated without complication through the remainder of the hospital course. The patient was also noted with severe deconditioning and minimal ambulatory status, evaluated by Physical Therapy Service. The patient was deemed an appropriate candidate for ongoing skilled care and aggressive physical therapy in a supervised medical setting. The patient continued to clinically stabilize with supportive management, tolerating regular oral intake, voiding appropriately with stable vital signs. I have examined the patient at the time of discharge and discussed followup instructions. The patient and daughter verbalized understanding and in agreement and ready for discharge on 11/05/2018. DISCHARGE MEDICATIONS: 1. Levothyroxine 75 mcg p.o. daily. 2. Metoprolol succinate 50 mg p.o. b.i.d. 3. Eliquis 10 mg p.o. b.i.d. until 11/09/2018, decreasing to 5 mg p.o. b.i.d. for 6 months. 4. Enteric-coated aspirin 81 mg p.o. daily. 5. Levaquin 500 mg p.o. daily until 11/09/2018. CONDITION ON DISCHARGE: Fair. DISCHARGE INSTRUCTIONS: FOLLOWUP: The patient will follow up with her primary care provider, Dr. Chu Mcgrath after discharge from [facility]. ACTIVITY: Ad-galindo. Rolling walker with standby/contact guard assistance. High fall risk precautions. DIET: ADA. CODE STATUS: Do not resuscitate. DISPOSITION: Discharged to [facility] on 11/05/2018. TIME SPENT: Total time preparing and coordinating discharge is 34 minutes. Job ID: [id number]
== END 2018-11-05 14:45 | DRG 300 ==
LOC: ERS 15:41 → INTOOBSV 19:56 → 2NO 19:56 → OBSVTOIN 10-31 18:30
PROVIDERS: ADMIT Family Medicine; ATTEND Family Medicine
DX: I82.4Z2 Acute embolism and thrombosis of unspecified deep veins of left distal lower extremity (principal); N39.0 Urinary tract infection, site not specified; R33.9 Retention of urine, unspecified; E11.9 Type 2 diabetes mellitus without complications; E78.5 Hyperlipidemia, unspecified; Z86.73 Personal history of transient ischemic attack (TIA), and cerebral infarction without residual deficits; I10 Essential (primary) hypertension; E03.9 Hypothyroidism, unspecified; R53.81 Other malaise; F03.90 Unspecified dementia, unspecified severity, without behavioral disturbance, psychotic disturbance, mood disturbance, and anxiety; R62.7 Adult failure to thrive; Z92.89 Personal history of other medical treatment; Z66 Do not resuscitate; B95.2 Enterococcus as the cause of diseases classified elsewhere
CPT/HCPCS: 36415; 36416; 70450; 71045; 80048; 80053; 81003; 81015; 82553; 82565; 84484; 85014; 85018; 85025; 85049; 85379; 87077; 87086; 87186; 93005; 93970; G8978-GP-CM; G8979-GP-CJ; J0360; J0696; J1650; J7050

== ENCOUNTER 2018-12-13 11:56 | Emergency (ER) | payer MEDICARE ==
[2018-12-13 12:36] LABS: Bilirubin Negative (Negative); Blood, Urine Small (Negative); Clarity CLOUDY (Clear); Glucose, Urine (Dipstick) Negative (Negative); Leukocyte Large (Negative); Nitrite Negative (Negative); Protein, Urine (Dipstick) Trace mg/dL (Neg-Trace); Specific Gravity, Urine 1.016 (1.002-1.036); pH, Urine 5.5 (5.0-9.0)
[2018-12-13 12:38] LABS: Bacteria/HPF 1+ HPF (None Seen); Hyaline Casts/LPF 0-3 HYALINE CAST LPF (0-3 Hyaline); Pathc Cast-AUWi Flag 0.29 (0-2.49); Squamous Epithelial 0-3 HPF (0-3); Yeast-AUWi Flag 113.3 (0-25.0)
[2018-12-13 12:48] LABS: Crystals/HPF 1+ CA OXALATE HPF (Negative); RBC/HPF 0-3 HPF (0-3); Yeast-All Forms None Seen HPF (None Seen)
--- NOTE | 2018-12-13 12:56 | RAD ---
PORTABLE CHEST 1 VIEW: DATE: 12/13/2018. TIME: 12:19 p.m. HISTORY: Altered mental status. FINDINGS: Comparison 10/30/2018. There is continued elevation of the right hemidiaphragm. The heart is enlarged. The aorta is tortuo us. No lobar consolidation, pneumothorax, meme pulmonary edema, or large effusions are seen. POS: [facility]
--- NOTE | 2018-12-13 12:59 | CT ---
CT BRAIN NONCONTRAST: DATE: 12/13/2018. TIME: 12:28 p.m. HISTORY: An 83-year-old female with altered mental status. COMPARISON: 11/02/2018. FINDINGS: No acute intraaxial or extraaxial hemorrhage, mass effect, midline shift, or extraaxial fluid collect ion. Diffuse atrophy of the brain. 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 Lateral and 3rd ventricles are mildly to moderate dilated on the basis of central atrophy. Chronic i schemic white matter changes. Calvarium is intact. No interval change overall. IMPRESSION: 1. No acute intracranial findings. 2. Multiple old infarctions in various vascular territories. 3. Atrophy and chronic ischemic white matter changes. SORAYA Hill POS: JOSE LUIS
[2018-12-13 13:10] LABS: AST (SGOT) 14 U/L (5-34)
[2018-12-13] MEDS ORDERED: Piperacillin/Tazobactam 4.5 GM VIAL ONE (13:10)
[2018-12-13 13:11] LABS: Acetaminophen Less than 6.0 mcg/mL (10.0-30.0); Alcohol Less than 10 mg/dL (Less than 10); Salicylate Less than 8.0 mg/dL (15.0-30.0)
[2018-12-13 14:17] LABS: White Blood Cell (WBC) Count 6.4 thou/uL (4.8-10.8)
[2018-12-13 14:18] LABS: Red Blood Cell (RBC) Count 3.64 mill/uL (4.20-5.40)
[2018-12-13 14:19] LABS: Mean Corpuscular Volume 92.6 fL (78.0-98.0)
[2018-12-13 14:20] LABS: Mean Corpuscular Hemoglobin 30.3 pg (27.0-31.0)
[2018-12-13 14:22] LABS: Mean Corpuscular HGB CONC 32.7 g/dL (32.0-36.0); RBC Distribution Width 13.9 % (11.5-14.5)
[2018-12-13 14:23] LABS: Mean Platelet Volume 8.1 fL (7.4-10.4); Platelet Count 314 thou/uL (130-400)
[2018-12-13 14:24] LABS: %Lymphocytes 36.1 % (21.0-51.0); %Monocytes 4.7 % (0.0-10.0); %Neutrophils 54.9 % (42.0-75.0)
[2018-12-13 14:25] LABS: #Lymphocytes 2.3 thou/uL (1.20-3.40); #Neutrophils 3.5 thou/uL (1.40-6.50); %Basophils 1.1 % (0.0-1.0); %Eosinophils 3.3 % (0.0-10.0)
[2018-12-13 14:26] LABS: #Basophils 0.7 thou/uL (0.0-0.2); #Eosinphils 0.2 thou/uL (0.0-0.7); #Monocytes 0.3 thou/uL (0.11-0.59)
[2018-12-13 14:29] LABS: INR-International Normal Ratio 1.5; Prothrombin Time 18.6 SEC (12.0-14.7)
[2018-12-13 14:30] LABS: PTT 33.2 SEC (22.9-36.1)
[2018-12-13 15:41] LABS: Sodium 138 mmol/L (136-145)
[2018-12-13 15:42] LABS: Potassium 3.5 mmol/L (3.5-5.1)
[2018-12-13 15:43] LABS: Chloride 102 mmol/L (98-107)
[2018-12-13 15:44] LABS: Carbon Dioxide 27 mmol/L (23-31)
[2018-12-13 15:45] LABS: Anion Gap 13 mmol/L (10-20)
[2018-12-13 15:46] LABS: BUN (Urea Nitrogen) 24 mg/dL (9.8-20.1)
[2018-12-13 15:54] LABS: Glucose 185 mg/dL (83-110)
[2018-12-13 15:55] LABS: Bilirubin, Total 0.2 mg/dL (0.2-1.2)
[2018-12-13 15:56] LABS: Protein, Total 6.3 g/dL (6.0-8.3)
[2018-12-13 16:01] LABS: Globulin 3.3 g/dL (2.4-3.5)
[2018-12-13 16:05] LABS: Alkaline Phosphatase 98 U/L (40-150)
[2018-12-13 16:08] LABS: ALT (SGPT) 12 U/L (8-55)
== END 2018-12-13 16:58 | disposition home or self-care (01) ==
LOC: ERS 11:56
DX: N30.00 Acute cystitis without hematuria (principal); I25.2 Old myocardial infarction; E03.9 Hypothyroidism, unspecified; E78.5 Hyperlipidemia, unspecified; I10 Essential (primary) hypertension; F41.9 Anxiety disorder, unspecified; Z79.899 Other long term (current) drug therapy; Z79.82 Long term (current) use of aspirin
CPT/HCPCS: 36415; 70450; 71045; 80053; 80307; 81003; 81015; 84443; 84484; 85025; 85610; 85730; 87040; 87077; 87086; 87186; 93005; 96365; J2543

== ENCOUNTER 2018-12-28 14:11 | Emergency (ER) | payer MEDICARE ==
[2018-12-28] MEDS ORDERED: Acetaminophen 500 MG TAB ONE (16:00)
--- NOTE | 2018-12-28 16:22 | ULT ---
ULTRASOUND WITH DOPPLER DUPLEX VENOUS LOWER EXTREMITY LEFT CPT: 12219 ICD-10-PCS: B54D HISTORY: Pain and history of prior DVT. TECHNIQUE: Color flow Doppler, spectral waveform analysis of pulsed Doppler, and victoria-scale imaging with rashid zayda and augmentation, were used to evaluate the bilateral common femoral, femoral, popliteal, permaculture contractor ior tibial, and superficial femoral, veins; and the proximal portions of the profunda femoral and gre ater saphenous, veins. FINDINGS: Thee is increased echogenicity with diminished compressibility and flow involving the deep vein syste m of the left lower extremity spanning the level of common femoral vein through the level of the leg, within the posterior tibial veins. IMPRESSION: Long segment, partially occlusive deep vein thrombosis spanning the left thigh through left leg. POS: C
[2018-12-28 16:43] LABS: #Basophils 0.1 thou/uL (0.0-0.2); #Eosinphils 0.3 thou/uL (0.0-0.7); #Lymphocytes 2.4 thou/uL (1.20-3.40); #Monocytes 0.6 thou/uL (0.11-0.59); #Neutrophils 5.4 thou/uL (1.40-6.50); %Basophils 1.2 % (0.0-1.0); %Eosinophils 3.5 % (0.0-10.0); %Lymphocytes 26.9 % (21.0-51.0); %Monocytes 6.6 % (0.0-10.0); %Neutrophils 61.9 % (42.0-75.0); Hemoglobin 11.5 g/dL (12.0-16.0); Mean Corpuscular Hemoglobin 30.5 pg (27.0-31.0); Mean Corpuscular Volume 92.2 fL (78.0-98.0); Mean Platelet Volume 8.3 fL (7.4-10.4); Platelet Count 267 thou/uL (130-400); RBC Distribution Width 14.1 % (11.5-14.5); Red Blood Cell (RBC) Count 3.78 mill/uL (4.20-5.40); White Blood Cell (WBC) Count 8.7 thou/uL (4.8-10.8)
[2018-12-28 16:46] LABS: Bilirubin Negative (Negative); Blood, Urine Negative (Negative); Clarity TURBID (Clear); Glucose, Urine (Dipstick) Negative (Negative); Leukocyte Small (Negative); Nitrite Negative (Negative); Protein, Urine (Dipstick) Negative (Neg-Trace); Specific Gravity, Urine 1.007 (1.002-1.036); Urobilinogen 0.2 mg/dL (0.2-1.0)
[2018-12-28 16:47] LABS: Bacteria/HPF None Seen HPF (None Seen); Pathc Cast-AUWi Flag 1.59 (0-2.49); Squamous Epithelial 0-3 HPF (0-3); WBC/HPF 0-3 HPF (0-3)
[2018-12-28 17:03] LABS: ALT (SGPT) 9 U/L (8-55); AST (SGOT) 12 U/L (5-34); Albumin 3.4 g/dL (3.4-4.8); Alkaline Phosphatase 121 U/L (40-150); Anion Gap 14 mmol/L (10-20); BUN (Urea Nitrogen) 21 mg/dL (9.8-20.1); Bilirubin, Total 0.3 mg/dL (0.2-1.2); Calc. Creatinine Clearance 0 mL/min (70-130); Calcium 9.3 mg/dL (7.8-10.44); Carbon Dioxide 21 mmol/L (23-31); Chloride 104 mmol/L (98-107); Estimated GFR-MDRD 46; Globulin 3.4 g/dL (2.4-3.5); Glucose 151 mg/dL (83-110); Lipase 18 U/L (8-78); Potassium 3.6 mmol/L (3.5-5.1); Protein, Total 6.8 g/dL (6.0-8.3); Sodium 135 mmol/L (136-145)
[2018-12-28 17:06] LABS: Crystals/HPF 4+ URIC ACID HPF (Negative); Hyaline Casts/LPF NONE SEEN LPF (0-3 Hyaline); RBC/HPF None Seen HPF (0-3)
== END 2018-12-28 17:16 | disposition home or self-care (01) ==
LOC: ERS 14:11
DX: I82.402 Acute embolism and thrombosis of unspecified deep veins of left lower extremity (principal); E86.0 Dehydration; E03.9 Hypothyroidism, unspecified; I10 Essential (primary) hypertension; E78.5 Hyperlipidemia, unspecified; Z79.899 Other long term (current) drug therapy; Z79.82 Long term (current) use of aspirin; Z86.73 Personal history of transient ischemic attack (TIA), and cerebral infarction without residual deficits
CPT/HCPCS: 36416; 80053; 81003; 81015; 83690; 85025; 87086; 96360; 96361

== ENCOUNTER 2019-01-15 12:31 | Inpatient (IN) | payer MEDICARE ==
[2019-01-15 13:19] LABS: #Basophils 0.1 thou/uL (0.0-0.2); #Eosinphils 0.1 thou/uL (0.0-0.7); #Lymphocytes 1.8 thou/uL (1.20-3.40); #Monocytes 0.7 thou/uL (0.11-0.59); #Neutrophils 7.3 thou/uL (1.40-6.50); %Basophils 0.5 % (0.0-1.0); %Lymphocytes 18.4 % (21.0-51.0); %Monocytes 7.2 % (0.0-10.0); %Neutrophils 72.9 % (42.0-75.0); Mean Corpuscular HGB CONC 32.9 g/dL (32.0-36.0); Mean Corpuscular Hemoglobin 30.8 pg (27.0-31.0); Mean Corpuscular Volume 93.7 fL (78.0-98.0); Mean Platelet Volume 8.4 fL (7.4-10.4); Platelet Count 300 thou/uL (130-400); RBC Distribution Width 13.7 % (11.5-14.5); Red Blood Cell (RBC) Count 3.56 mill/uL (4.20-5.40)
[2019-01-15 13:33] LABS: INR-International Normal Ratio 1.9; Prothrombin Time 21.7 SEC (12.0-14.7)
[2019-01-15 13:34] LABS: PTT 43.3 SEC (22.9-36.1)
[2019-01-15 13:49] LABS: ALT (SGPT) Less than 7 U/L (8-55); AST (SGOT) 12 U/L (5-34); Albumin 3.2 g/dL (3.4-4.8); Alkaline Phosphatase 120 U/L (40-150); Anion Gap 13 mmol/L (10-20); BUN (Urea Nitrogen) 20 mg/dL (9.8-20.1); Bilirubin, Total 0.3 mg/dL (0.2-1.2); CK (CPK) 321 U/L (29-168); Calc. Creatinine Clearance 0 mL/min (70-130); Calcium 8.8 mg/dL (7.8-10.44); Carbon Dioxide 24 mmol/L (23-31); Chloride 103 mmol/L (98-107); Estimated GFR-MDRD 49; Globulin 2.9 g/dL (2.4-3.5); Glucose 311 mg/dL (83-110); Magnesium 1.6 mg/dL (1.6-2.6); Potassium 3.9 mmol/L (3.5-5.1); Protein, Total 6.1 g/dL (6.0-8.3); Sodium 136 mmol/L (136-145)
[2019-01-15 13:52] LABS: Bilirubin Negative (Negative); Blood, Urine Small (Negative); Glucose, Urine (Dipstick) 250 mg/dL (Negative); Leukocyte Small (Negative); Nitrite Negative (Negative); Protein, Urine (Dipstick) Negative (Neg-Trace); Specific Gravity, Urine 1.015 (1.005-1.030); Urobilinogen 0.2 mg/dL (0.2-1.0)
[2019-01-15 13:54] LABS: Clarity CLEAR (Clear); Other Microscopic Description Less than 2 mL rec'd
--- NOTE | 2019-01-15 14:34 | RAD ---
CHEST 1 VIEW: Date: 01/15/19 HISTORY: Weakness. Dyspnea. COMPARISON: 12/13/18. FINDINGS: Cardiac silhouette is magnified by projection. Right cardiaca margin partially obscured by lobular an d elevated right hemidiaphragm. Pulmonary vasculature upper limits of normal and accentuated by shall ow inspiration. Mediastinum is midline with aortic calcification. No lobar consolidation or evidence of pneumothorax. air sampling and monitoring leads overlie the chest. IMPRESSION: 1. Chronic-type findings are stable. No active cardiopulmonary abnormalities are demonstrated. 2. Atherosclerosis. POS: JOSE LUIS
--- NOTE | 2019-01-15 15:14 | CT ---
HEAD CT WITHOUT CONTRAST: Date: 01/15/19 HISTORY: For the past 3 days, the patient has become more weak and not eating. COMPARISON: 12/13/18. FINDINGS: No parenchymal hemorrhage. No extra-axial hematoma. No midline shift. Basilar cisterns are patent. Ag e-appropriate atrophy. Redemonstration of multifocal areas of malacic change, similar to the previous examination. There are confluent white matter hypodensities with chronic small vessel ischemic hernandez e. Remote lacunar infarct in the left caudate nucleus and left thalamus is noted. Stable configuration of the ventricular system. Cavernous carotid atherosclerosis. Adequate aeration of the sinuses and mastoid air cells. Calvarium is intact. IMPRESSION: No acute intracranial process. POS: [facility]ONATHON
[2019-01-15 18:33] VITALS: BMI 27.8
[2019-01-15 19:46] LABS: Lactic Acid 1.4 mmol/L (0.5-2.2)
[2019-01-15] MEDS ORDERED: Acetaminophen 650 MG Suppository PR PRN (21:47)
--- NOTE | 2019-01-16 03:44 | HP ---
CHIEF COMPLAINT: Weakness. HISTORY OF PRESENT ILLNESS: Ms. Boyer is an 83-year-old woman with brought in by her daughter due to being generally unwell for the last 3 days with notable weakness. She has not been eating as much but her appetite does tend to fluctuate at baseline. Her daughter suspected a recurrent UTI, she has a exterminator helper termite moreno catheter. Urinalysis was done in the ED, which showed a small amount of leukocyte esterase, no nitrites. It was said that her urine appeared cloudy, but no meme hematuria. Laboratory studies done in the ED showed a normal white blood count. She was afebrile. Electrolytes normal including her renal function. LFTs unremarkable. She did have a CK of 321. A troponin was done which was unremarkable. The patient underwent a chest x-ray, which showed no acute cardiopulmonary abnormalities. Though her glucose was initially raised at 400, it improved to 292 and then 195. In the ED, she received IV fluids. The patient was admitted for further workup and investigations. REVIEW OF SYSTEMS: As mentioned previously, the patient has been afebrile without any chills or sweats. She has not complained of any chest pain. At this present time, the patient denies any major discomfort. She has had a decreased appetite per her daughter. She has not had any nausea or vomiting. The daughter states she has had rather loose stools and has been complaining of some discomfort in her abdomen. No blood in the stools. She has not had any lower extremity swelling or skin changes. No rash. SOCIAL HISTORY: The patient currently lives with her daughter. No tobacco use or alcohol use. PAST MEDICAL HISTORY: 1. Diabetes mellitus. 2. PR in 2010. 3. Previous stroke and TIA. 4. Urinary catheter placed in 2011. 5. Hypothyroidism. 6. Hypertension. 7. Hyperlipidemia. 8. Anxiety. 9. History of lower extremity DVT. ALLERGIES: ALLERGY TO IODINE. CURRENT MEDICATIONS: 1. Glipizide 10 mg p.o. twice daily. 2. Metoprolol succinate 50 mg p.o. twice daily. 3. Levothyroxine 75 mcg p.o. daily. 4. Lasix 20 mg p.o. daily. 5. Eliquis 5 mg p.o. twice daily for previous DVT. PHYSICAL EXAMINATION: GENERAL: The patient appears generally unwell. She is found resting comfortably in bed, in no acute distress. She is minimally verbal. VITAL SIGNS: Temperature 97.9, pulse 85, respirations 16, O2 saturation 94% on room air, and blood pressure 124/74. HEENT: Normocephalic and atraumatic. Pupils are equal, round, and reactive to light. Sclerae are without icterus. Oropharynx is clear. NECK: Supple. LUNGS: Clear to auscultation bilaterally. CARDIAC: Regular rate and rhythm. ABDOMEN: Mildly distended, but soft, with diffuse discomfort on palpation. EXTREMITIES: No edema or lower extremity swelling. SKIN: Without rash or jaundice. No signs of cellulitis. NEUROLOGIC: The patient is alert, able to answer yes and no questions, minimally verbal. INVESTIGATIONS: As mentioned above in HPI. IMPRESSION AND PLAN: Ms. Boyer is an 83-year-old woman admitted due to weakness for further investigation and management of the following. 1. Weakness. UA without signs of infection. The chest x-ray was negative. She has had loose stools more recently and on exam, she did have some mild distention with some discomfort on palpation of her abdomen. She has not had any nausea or vomiting and has tolerated oral intake. It is possible she may be severely constipated with overflow being the cause of loose stools. I have requested a KUB. For the time being, the patient seems to be comfortable. We will continue to monitor. Await results before starting medications for constipation. 2. Hypertension. We will resume home medications and monitor her blood pressure. 3. Diabetes mellitus. We will resume home medications and monitor her glucose. 4. Gastrointestinal prophylaxis. 6. Deep venous thromboembolism prophylaxis. None as the patient already on Eliquis. She suffers from chronic lower leg pain, therefore we will not place mechanical SCDs. 7. The patient is a DNR and her surrogate decision maker is her daughter, Tiffany Boyer. The patient's case was discussed with Dr. Ellis, who agrees upon care as described above. Job ID: [id number] MTDD
[2019-01-16] MEDS: Levothyroxine Sodium 75 MCG TAB PO SCH (05:37)
[2019-01-16] MEDS: glipiZIDE 10 MG TAB PO SCH ×2 (08:24→17:09)
[2019-01-16] MEDS: Furosemide 20 MG TAB PO SCH (08:24)
[2019-01-16] MEDS: Acetaminophen 325 MG TAB PO PRN ×3 (08:27→22:41)
--- NOTE | 2019-01-16 08:43 | RAD ---
ABDOMEN 1 VIEW: Date: 01/15/19 HISTORY: Abdominal pain and distention. FINDINGS: Large amount of gas and stool over the colon and rectum. Small bowel gas pattern is nonspecific. Prom inent calcification over the arterial structures. Multiple lobular eggshell calcifications over the r ight upper quadrant at the expected location of the gallbladder fossa. Large dystrophic calcification over the pelvis is consistent with a calcified uterine fibroid. IMPRESSION: 1. Constipation. 2. Cholelithiasis. 3. Large uterine fibroid. 4. Atherosclerosis. POS: JOSE LUIS
[2019-01-16] MEDS ORDERED: Apixaban 5 MG TAB PO SCH ×2 (09:00)
[2019-01-16] MEDS ORDERED: Dextrose 5% in Water 1,000 ML IV PRN (12:42)
[2019-01-16] MEDS ORDERED: Dextrose 50% Abboject 50 ML SYRINGE SLOW IVP PRN (12:42)
[2019-01-16] MEDS: HumaLOG 300 UNITS/3 ML VIAL SC PRN (13:22)
--- NOTE | 2019-01-16 13:22 | PRG ---
DATE OF SERVICE: 01/16/2019 SUBJECTIVE: The patient is seen and examined at the bedside. She seems to be doing better. She is eating hamburger. Her daughter is present in the room during my visit. She does not have much complaints to offer. OBJECTIVE: VITAL SIGNS: Blood pressure is 104/66, pulse is 71, temperature is 97.9, respirations 18, and O2 saturation is 94% on room air. HEENT: Her eyes are PERRLA. Sclerae are nonicteric. LUNGS: Clear. HEART: S1 and S2 normal. No S3. No S4. No any murmur. ABDOMEN: Soft and nontender. Bowel sounds are present. No organomegaly. EXTREMITIES: No clubbing, cyanosis, or edema. NEUROLOGIC: She follows my commands. She moves her all 4 extremities. There are no any motor deficits. LABORATORY DATA: Labs showed glycemia is ranging from . Microbiology, urine culture is growing presumptive Enterococcus species. Influenza type A and B direct. EIA negative for both of them. IMPRESSION: 1. Anorexia, improved. 2. Urinary tract infection, most likely with Enterococcus. We will start her on ampicillin IV piggyback 500 mg q.8 hours. 3. Diabetes mellitus. Her glycemia is improving. 4. DNR status. PLAN: As I mentioned above, we will continue her IV fluids. We will start her on ampicillin 500 mg three times a day and when we have final culture she can be discharged home. Job ID: [id number]
[2019-01-16] MEDS: Apixaban 5 MG TAB PO SCH (20:21)
[2019-01-17] MEDS: Levothyroxine Sodium 75 MCG TAB PO SCH (05:19)
[2019-01-17 07:49] LABS: Platelet Count 305 thou/uL (130-400)
[2019-01-17] MEDS: glipiZIDE 10 MG TAB PO SCH ×2 (08:30→17:38)
[2019-01-17] MEDS: Apixaban 5 MG TAB PO SCH ×2 (08:34→20:57)
[2019-01-17] MEDS: Furosemide 20 MG TAB PO SCH (08:35)
--- NOTE | 2019-01-17 10:40 | PRG ---
DATE OF SERVICE: 01/17/2019 SUBJECTIVE: The patient is seen and examined at bedside. Her daughter is present in the room during my visit. Apparently, the patient is not doing that well today. She complains about aches all over her body and daughter noticed that her left lower extremity is more swollen than it was before. Apparently, she had DVT diagnosed approximately 2 months ago. Her appetite is poor. OBJECTIVE: VITAL SIGNS: Blood pressure is 156/81, pulse is 65, temperature is 98.0, respiratory rate is 16, and O2 saturation 97% on room air. HEENT: Head is atraumatic and normocephalic. Sclerae nonicteric. Oral mucosa is moist. NECK: Supple. LUNGS: Clear. HEART: S1 and S2 normal. No S3. No S4. ABDOMEN: Soft, nontender. Bowel sounds are present. No organomegaly. EXTREMITIES: Left lower extremity shows some swelling compared to the right one and it is tender to examination. NEUROLOGIC: She follows my commands. She has some on and off episodes of hallucination. LABORATORY DATA: Hemoglobin of 10.0, hematocrit 31.6, creatinine 1.04, and glucose is ranging from 96 to 224. Microbiology, urine culture presumptive Enterococcus more than 100,000 colonies. No sensitivity back yet. IMPRESSION: 1. Anorexia, still a problem. 2. Urinary tract infection with Enterococcus. We are awaiting for the sensitivity and final identification is still presumptive Enterococcus. The patient was started on ampicillin IV piggyback yesterday. 3. Diabetes mellitus. 4. History of deep venous thrombosis in the left lower extremity. PLAN: Plan is to continue her ampicillin. Do Doppler studies on her left lower extremity. We will continue her metoprolol along with levothyroxine, glipizide, furosemide, apixaban, and Tylenol. Job ID: [id number]
[2019-01-17] MEDS ORDERED: Naproxen 500 MG TAB PO SCH (11:15)
--- NOTE | 2019-01-17 17:09 | ULT ---
LEFT LOWER EXTREMITY VENOUS DOPPLER ULTRASOUND EVALUATION: HISTORY: Patient with previously identified left lower extremity venous clot. TECHNIQUE: Multiple longitudinal and transverse images of the left lower extremity venous system are obtained us ing a Multi-Hertz linear array transducer. FINDINGS: Real-time, color-flow, and spectral wave-form Doppler analysis demonstrate the persistence of a nonoc clusive clot in the left common femoral vein, superficial femoral vein, popliteal vein, and, inferior ly, all the way to the mid posterior tibial veins. The left femora profunda and greater saphenous ve ins are patent. IMPRESSION: Persistence of clot but recanalization and some partial flow in the left lower extremity venous syste m, as described above. POS: [facility]
[2019-01-17] MEDS: Naproxen 500 MG TAB PO SCH (21:24)
[2019-01-18] MEDS: Levothyroxine Sodium 75 MCG TAB PO SCH (05:53)
[2019-01-18] MEDS: glipiZIDE 10 MG TAB PO SCH ×2 (07:58→16:51)
[2019-01-18] MEDS: Furosemide 20 MG TAB PO SCH (08:00)
[2019-01-18] MEDS: Naproxen 500 MG TAB PO SCH ×2 (08:01→20:48)
[2019-01-18] MEDS: Apixaban 5 MG TAB PO SCH ×2 (08:01→20:48)
[2019-01-18] MEDS ORDERED: traMADol HCl 50 MG TAB PO PRN (08:13)
[2019-01-18] MEDS: Megestrol Acetate 800 MG/20 ML UDCUP PO SCH (10:01)
--- NOTE | 2019-01-18 11:40 | PRG ---
DATE OF SERVICE: SUBJECTIVE: The patient is seen and examined at the bedside. Her daughter is present in the room during my visit. Her appetite is still quite poor. She complains about the left leg pain. OBJECTIVE: VITAL SIGNS: Blood pressure is 145/73, pulse is 62, temperature 97.4, respirations 12, O2 saturation is 99% on room air. HEAD: Atraumatic and normocephalic. Pupils are responding to light properly. Sclerae is nonicteric. Conjunctiva pinkish. Oral mucosa is moist. LUNGS: Clear. HEART: S1, S2, somewhat irregular. No S3. No S4. ABDOMEN: Soft, nontender. EXTREMITIES: She has some swelling over the left lower extremity. NEUROLOGIC: She follows my commands. She moves her all four extremities. There is no any motor deficits. LABORATORY DATA: Left lower extremity venous Doppler ultrasound evaluation showed persistence of clot, but recanalization of some part flow in the left lower extremity venous system. IMPRESSION: 1. Urinary tract infection with enterococcus, pansensitive. We are going to switch her to oral p.o. levofloxacin 500 mg once a day. 2. Anorexia is still a problem. We will start her on Megace 800 mg once a day. 3. Diabetes mellitus, controlled. 4. Deep venous thrombosis of the left lower extremity, which apparently looks better on the recent Doppler ultrasound on her lower extremity. PLAN: Plan is to start PT. Switch her to oral Levaquin. Start Megace. Use tramadol p.r.n. as needed. Continue naproxen for the left lower extremity pain, which she apparently developed after she was found to have a blood clot. Job ID: [id number]
[2019-01-18] MEDS: HumaLOG 300 UNITS/3 ML VIAL SC PRN ×2 (16:52→20:49)
[2019-01-19] MEDS: Levothyroxine Sodium 75 MCG TAB PO SCH (05:24)
[2019-01-19 07:20] LABS: Hemoglobin 9.9 g/dL (12.0-16.0); Platelet Count 344 thou/uL (130-400)
[2019-01-19] MEDS: Furosemide 20 MG TAB PO SCH (08:52)
[2019-01-19] MEDS: Naproxen 500 MG TAB PO SCH (08:52)
[2019-01-19] MEDS: glipiZIDE 10 MG TAB PO SCH (08:52)
[2019-01-19] MEDS: Apixaban 5 MG TAB PO SCH (08:52)
[2019-01-19] MEDS: Megestrol Acetate 800 MG/20 ML UDCUP PO SCH (08:52)
--- NOTE | 2019-01-19 10:49 | DIS ---
DATE OF ADMISSION: 01/15/2019 DATE OF DISCHARGE: 01/19/2019 FINAL DIAGNOSES: 1. Urinary tract infection with enterococcus. 2. Encephalopathy, improved. 3. Anorexia. 4. Diabetes mellitus. 5. Deep vein thrombosis of the left lower extremity. 6. Failure to thrive. HOSPITAL COURSE: The patient is an 83-year-old female, who was brought by her daughter to the emergency room for evaluation of her weakness and lack of appetite. Her daughter suspected recurrent UTI since she has a long-term Burgess catheter in and she had some infections in the past. Labs in the emergency room showed normal white count. She was afebrile. She had normal renal function. Chest x-ray did not show any acute abnormalities. Her glucose was elevated at 400. She received IV fluids and got admitted to the hospital for further evaluation. She was started on Rocephin for possible urinary tract infection and her urine culture came back growing pansensitive enterococcus, so she was switched to oral levofloxacin. Her appetite is very poor, so she was given Megace. Also during this hospitalization, she had quite a bit of discomfort in the left lower extremity, the 1 which has DVT, so Pain Management was done with naproxen and Tylenol and she improved. We continued her home medications. Her glycemia improved. She received physical therapy and followup Doppler and ultrasound on her left lower extremity DVT showed some improvement and partial recanalization of the thrombus. She is doing well. Her glycemia is down to 173. She is seen and examined before she is discharged. DIET: She is going to stay on heart healthy diet plus diabetic diet. MEDICATIONS: Her medications at the time of discharge; 1. Glipizide 10 mg twice a day. 2. Metoprolol 50 mg twice a day. 3. Levothyroxine 75 mcg once a day. 4. Furosemide 20 mg once a day. 5. Apixaban 10 mg twice a day. 6. Multivitamin once a day. 7. Levofloxacin 250 mg once a day x5 days. 8. Tylenol 650 mg q.4 hours p.r.n. as needed. ACTIVITIES: As tolerated. She will get PT at home through home healthcare agency PT program. She will have home health nurse visiting and we recommend her to go to primary care physician in 1 week. TIME SPENT: Discharge time is less than 30 minutes. Job ID: [id number]
--- NOTE | 2019-01-19 14:09 | PQF ---
DATE: 01-19-19 ATTN: DR. ARBEN NATH Please exercise your independent, professional judgment in responding to the clarification form. Clinical indicators are provided on the bottom of this form for your review Please check appropriate box(s): [ ] Encephalopathy: Type: [ x ] Acute [ ] Subacute [ ] Chronic Etiology: [ x ] Metabolic [ ] Toxic [ ] in the setting of underlying dementia [x ] Other (please specify) [ ] Transient Alteration of Awareness [ ] Other diagnosis UTI [ ] Unable to determine In addition, please specify: Present on Admission (POA): [ X ] Yes [ ] No [ ] Unable to determine For continuity of documentation, please document condition throughout progress notes and discharge summary. Thank You. CLINICAL INDICATORS - SIGNS / SYMPTOMS / LABS ER: WEAKNESS, MENTAL STATUS CHANGES, OVER THE PAST 3 DAYS PT HAS BEEN MORE WEAK, NOT EATING, AND AT TIMES IS MORE CONFUSED THAN HER BASELINE PER FAMILY. ER DX: ALTERED MENTAL STATUS, TYPE 2 DM W/ HYPERGLYCEMIA D/C SUMMARY: UTI WITH ENTEROCOCCUS, ENCEPHALOPATHY, IMPROVED RISK FACTORS: D/C SUMMARY: UTI WITH ENTEROCOCCUS, ENCEPHALOPATHY, IMPROVED TREATMENTS: ER: IVF NS MAR: LEVAQUIN, AMPICILLIN IV (This form is maintained as a part of the permanent medical record) 2014 [employer]. All Rights Reserved [email or web address] Office: [phone] [place]
--- NOTE | 2019-01-19 14:27 | PQF ---
DATE: 01-19-19 ATTN: DR. ARBEN NATH Please exercise your independent, professional judgment in responding to the clarification form. Clinical indicators are provided on the bottom of this form for your review Please check appropriate box(s): [ ] Acute Renal Failure (ARF) / Acute Kidney Injury (TIANA) [ ] Insignificant Lab Values [ ] Other diagnosis [ X] Unable to determine In addition, please specify: Present on Admission (POA): [ ] Yes [ ] No [ ] Unable to determine National Kidney Foundation Guidelines for CKD Staging Stage I Kidney damage with normal or increased GFR GFR > 90 Stage II Kidney damage with mildly decreased GFR GFR 60-89 Stage III Kidney damage with moderately decreased GFR GFR 30-59 Stage IV Kidney damage with severely decreased GFR GFR 16-29 Stage V Kidney failure GFR< 15 ESRD End Stage Renal Disease On dialysis Acute Renal Failure/Acute Kidney Failure defined as: Increases in SCr by (>) 0.3 mg/dl within 48 hours OR- Increases in SCr by (>) 1.5 times baseline, known or presumed to have occurred within the prior 7 days OR- Urine volume < 0.5 ml/kg/hour for 6 hours (KDIGO supplement 2012 for RIFLE/ROLO criteria) For continuity of documentation, please document condition throughout progress notes and discharge summary. Thank You. CLINICAL INDICATORS - SIGNS / SYMPTOMS / LABS GFR: 01-15-19: 49 01-17-19: 50 01-19-19: 40 CREATININE: 01-15-19: 1.06 01-17-19: 1.04 01-19-19: 1.28 BUN: 01-15-19: 20 D/C SUMMARY: WEAKNESS, LACK OF APPETITE RISK FACTORS: ER: GLIPIZIDE, METOPROLOL, LASIX TREATMENTS: ER: NS IVF (This form is maintained as a part of the permanent medical record) 2014 [employer]. All Rights Reserved [email or web address] Office: [phone] [facility]
[2019-01-19 14:47] VITALS: BP 107/68; TEMP 97.3
== END 2019-01-19 16:06 | disposition home health service (06) | DRG 689 ==
LOC: ERS 12:31 → T4-A 17:20
PROVIDERS: ADMIT Internal Medicine; ATTEND Internal Medicine
DX: N39.0 Urinary tract infection, site not specified (principal); G93.41 Metabolic encephalopathy; B95.2 Enterococcus as the cause of diseases classified elsewhere; I10 Essential (primary) hypertension; E11.9 Type 2 diabetes mellitus without complications; Z66 Do not resuscitate; I25.2 Old myocardial infarction; E03.9 Hypothyroidism, unspecified; E78.5 Hyperlipidemia, unspecified; R62.7 Adult failure to thrive; R63.0 Anorexia; F41.9 Anxiety disorder, unspecified; Z86.73 Personal history of transient ischemic attack (TIA), and cerebral infarction without residual deficits; Z86.718 Personal history of other venous thrombosis and embolism; Z79.84 Long term (current) use of oral hypoglycemic drugs; Z79.01 Long term (current) use of anticoagulants; Z68.27 Body mass index [BMI] 27.0-27.9, adult; Z88.8 Allergy status to other drugs, medicaments and biological substances
CPT/HCPCS: 36415; 36416; 51702; 70450; 71045; 74018; 80053; 81003; 81015; 82550; 82565; 83605; 83735; 84443; 84484; 85014; 85018; 85025; 85049; 85610; 85730; 87077; 87086; 87186; 87804; 93005; 96360; J0290; J7050

== ENCOUNTER 2019-02-16 12:14 | Emergency (ER) | payer MEDICARE ==
--- NOTE | 2019-02-16 12:56 | CT ---
CT BRAIN WITHOUT CONTRAST: History: Altered mental status. FINDINGS: Comparison is made with exam of 01-15-19. Changes of cortical atrophy, chronic small vessel ischemic disease, and old infarctions are again see n. The ventricular size is stable and the basilar cisterns patent. No evidence of acute infarct, hemo rrhage, midline shift, or abnormal extraaxial fluid collections are noted. The bony calvarium is inta ct. The visualized paranasal sinuses and mastoid air cells are well aerated. IMPRESSION: Stable exam. No CT evidence of acute intracranial process. POS: [facility]
[2019-02-16 12:58] LABS: #Basophils 0.1 thou/uL (0.0-0.2); #Eosinphils 0.5 thou/uL (0.0-0.7); #Lymphocytes 3.5 thou/uL (1.20-3.40); #Monocytes 0.7 thou/uL (0.11-0.59); #Neutrophils 7.8 thou/uL (1.40-6.50); %Basophils 0.8 % (0.0-1.0); %Eosinophils 3.7 % (0.0-10.0); %Monocytes 5.2 % (0.0-10.0); %Neutrophils 62.3 % (42.0-75.0); Hemoglobin 11.3 g/dL (12.0-16.0); Mean Corpuscular HGB CONC 32.7 g/dL (32.0-36.0); Mean Corpuscular Hemoglobin 30.2 pg (27.0-31.0); Mean Corpuscular Volume 92.4 fL (78.0-98.0); Mean Platelet Volume 8.7 fL (7.4-10.4); Platelet Count 230 thou/uL (130-400); Red Blood Cell (RBC) Count 3.75 mill/uL (4.20-5.40); White Blood Cell (WBC) Count 12.5 thou/uL (4.8-10.8)
[2019-02-16 13:22] LABS: ALT (SGPT) 14 U/L (8-55); AST (SGOT) 17 U/L (5-34); Albumin 3.5 g/dL (3.4-4.8); Alkaline Phosphatase 90 U/L (40-150); Anion Gap 17 mmol/L (10-20); BUN (Urea Nitrogen) 33 mg/dL (9.8-20.1); Bilirubin, Total 0.5 mg/dL (0.2-1.2); Calc. Creatinine Clearance 0 mL/min (70-130); Calcium 8.9 mg/dL (7.8-10.44); Carbon Dioxide 15 mmol/L (23-31); Chloride 112 mmol/L (98-107); Estimated GFR-MDRD 39; Globulin 2.8 g/dL (2.4-3.5); Glucose 183 mg/dL (83-110); Potassium 4.1 mmol/L (3.5-5.1); Protein, Total 6.3 g/dL (6.0-8.3); Sodium 140 mmol/L (136-145)
--- NOTE | 2019-02-16 13:23 | RAD ---
FPortable semiupright frontal chest radiograph: 03/06/2019 COMPARISON: 01/15/2019 HISTORY: Altered mental status FINDINGS: Stable atherosclerotic calcification of the aortic arch. Mild increased linear interstitial density with pulmonary hyperinflation. No pneumothorax, pneumothorax, focal consolidation or alveola r edema. Increased density in the right cardiophrenic angle noted, evidence of prominent epicardial f at pad. IMPRESSION: No acute findings.
[2019-02-16 13:43] LABS: Bilirubin Negative (Negative); Blood, Urine Moderate (Negative); Clarity CLOUDY (Clear); Glucose, Urine (Dipstick) Negative (Negative); Leukocyte Moderate (Negative); Nitrite Negative (Negative); Protein, Urine (Dipstick) Negative (Neg-Trace); Specific Gravity, Urine 1.009 (1.002-1.036); Urobilinogen 0.2 mg/dL (0.2-1.0)
[2019-02-16 13:48] LABS: Bacteria/HPF None Seen HPF (None Seen); RBC/HPF 21-50 HPF (0-3)
[2019-02-16 13:49] LABS: Pathc Cast-AUWi Flag 3.12 (0-2.49)
[2019-02-16 13:58] LABS: Hyaline Casts/LPF NONE SEEN LPF (0-3 Hyaline); Manual Microscopic Reviewed? No Path Casts Seen; Renal Epithelial None Seen HPF (0-3); Transitional Epithelial NONE SEEN HPF (0-3)
== END 2019-02-16 15:53 | disposition home or self-care (01) ==
LOC: ERS 12:14
DX: I95.1 Orthostatic hypotension (principal); N39.0 Urinary tract infection, site not specified; E11.9 Type 2 diabetes mellitus without complications; I25.2 Old myocardial infarction; I10 Essential (primary) hypertension; E03.9 Hypothyroidism, unspecified; Z79.899 Other long term (current) drug therapy
CPT/HCPCS: 36415; 51702; 70450; 71045; 80053; 81003; 81015; 84484; 85025; 87077; 87086; 87186; 93005; 96365; 96366; J1956

== ENCOUNTER 2019-03-04 21:34 | Observation (INO) | payer MEDICARE ==
[2019-03-04 22:32] LABS: #Eosinphils 0.4 thou/uL (0.0-0.7); #Lymphocytes 1.9 thou/uL (1.20-3.40); #Monocytes 0.8 thou/uL (0.11-0.59); #Neutrophils 7.1 thou/uL (1.40-6.50); %Basophils 0.3 % (0.0-1.0); %Eosinophils 4.2 % (0.0-10.0); %Lymphocytes 18.3 % (21.0-51.0); %Monocytes 7.9 % (0.0-10.0); %Neutrophils 69.3 % (42.0-75.0); Hemoglobin 11.9 g/dL (12.0-16.0); Mean Corpuscular HGB CONC 32.9 g/dL (32.0-36.0); Mean Corpuscular Hemoglobin 30.3 pg (27.0-31.0); Mean Corpuscular Volume 92.2 fL (78.0-98.0); Mean Platelet Volume 7.6 fL (7.4-10.4); Platelet Count 205 thou/uL (130-400); Red Blood Cell (RBC) Count 3.94 mill/uL (4.20-5.40); White Blood Cell (WBC) Count 10.2 thou/uL (4.8-10.8)
[2019-03-04 22:56] LABS: ALT (SGPT) 9 U/L (8-55); AST (SGOT) 18 U/L (5-34); Albumin 3.4 g/dL (3.4-4.8); Alkaline Phosphatase 64 U/L (40-150); Anion Gap 18 mmol/L (10-20); BUN (Urea Nitrogen) 61 mg/dL (9.8-20.1); Bilirubin, Total 0.6 mg/dL (0.2-1.2); Calc. Creatinine Clearance 0 mL/min (70-130); Calcium 9.2 mg/dL (7.8-10.44); Carbon Dioxide 21 mmol/L (23-31); Chloride 100 mmol/L (98-107); Estimated GFR-MDRD 27; Globulin 3.2 g/dL (2.4-3.5); Glucose 143 mg/dL (83-110); Lipase 20 U/L (8-78); Potassium 3.9 mmol/L (3.5-5.1); Protein, Total 6.6 g/dL (6.0-8.3); Sodium 135 mmol/L (136-145)
--- NOTE | 2019-03-04 22:58 | RAD ---
EXAM: CHEST ONE VIEW: History: Altered mental status, weakness. Comparison: 02-16-19 FINDINGS: Mild linear parenchymal changes in the bases with minimal elevation of the right hemidiaphragm, stabl e. No confluent pneumonia, overt edema, or pleural effusion. IMPRESSION: Mild stable chronic changes. No acute intrathoracic disease. Atherosclerosis of the aorta. POS: [facility]
--- NOTE | 2019-03-04 23:21 | CT ---
BRAIN CT WITHOUT IV CONTRAST: History: Altered mental status and confusion. Comparison: 02-16-19 FINDINGS: Very severe atrophy and chronic white matter ischemic changes. Old infarct changes noted bilaterally in the cerebellum and cerebrum. No mass or midline shift. No intra or extraaxial hemorrhage. IMPRESSION: Stable exam from prior study, 02-16-19. No mass or bleed. POS: [facility]
[2019-03-04 23:31] LABS: Bilirubin Moderate (Negative); Blood, Urine Small (Negative); Clarity CLOUDY (Clear); Glucose, Urine (Dipstick) Negative (Negative); Leukocyte Large (Negative); Nitrite Negative (Negative); Protein, Urine (Dipstick) Negative (Neg-Trace)
[2019-03-04 23:34] LABS: Bacteria/HPF None Seen HPF (None Seen); Hyaline Casts/LPF 7-10 HYALINE CAST LPF (0-3 Hyaline); Squamous Epithelial 0-3 HPF (0-3)
[2019-03-04 23:38] LABS: Pathc Cast-AUWi Flag 2.58 (0-2.49); Yeast-AUWi Flag 1372.3 (0-25.0)
[2019-03-04 23:48] LABS: Other Casts/LPF None Seen LPF (0-3 Hyaline); RBC/HPF 0-3 HPF (0-3); Yeast-All Forms 1+ HPF (None Seen)
[2019-03-04] MEDS ORDERED: diphenhydrAMINE 50 MG CAP ONE (23:50)
[2019-03-05] MEDS ORDERED: cefTRIAXone\\ROCEPHIN 1 GM VIAL ONE (01:59)
[2019-03-05] MEDS ORDERED: Ondansetron ODT 4 MG TAB SL PRN (03:02)
[2019-03-05] MEDS ORDERED: Ondansetron PF 4 MG/2 ML Vial IVP PRN (03:02)
[2019-03-05] MEDS ORDERED: Sodium Chloride 0.9% 1,000 ML IV SCH (03:02)
[2019-03-05 03:10] VITALS: BMI 26.9
[2019-03-05 07:23] LABS: #Eosinphils 0.2 thou/uL (0.0-0.7); #Lymphocytes 2.2 thou/uL (1.20-3.40); #Monocytes 0.9 thou/uL (0.11-0.59); #Neutrophils 8.2 thou/uL (1.40-6.50); %Basophils 0.3 % (0.0-1.0); %Eosinophils 1.4 % (0.0-10.0); %Lymphocytes 19.4 % (21.0-51.0); %Monocytes 7.6 % (0.0-10.0); %Neutrophils 71.3 % (42.0-75.0); Hemoglobin 10.5 g/dL (12.0-16.0); Mean Corpuscular HGB CONC 32.1 g/dL (32.0-36.0); Mean Corpuscular Volume 93.3 fL (78.0-98.0); Mean Platelet Volume 7.8 fL (7.4-10.4); Platelet Count 187 thou/uL (130-400); RBC Distribution Width 14.9 % (11.5-14.5); Red Blood Cell (RBC) Count 3.52 mill/uL (4.20-5.40); White Blood Cell (WBC) Count 11.4 thou/uL (4.8-10.8)
[2019-03-05 07:43] LABS: Anion Gap 15 mmol/L (10-20); BUN (Urea Nitrogen) 56 mg/dL (9.8-20.1); Calc. Creatinine Clearance 27 mL/min (70-130); Calcium 8.8 mg/dL (7.8-10.44); Carbon Dioxide 20 mmol/L (23-31); Chloride 104 mmol/L (98-107); Estimated GFR-MDRD 33; Glucose 138 mg/dL (83-110); Potassium 4.1 mmol/L (3.5-5.1); Sodium 135 mmol/L (136-145)
[2019-03-05] MEDS ORDERED: HumaLOG 300 UNITS/3 ML VIAL SC PRN (08:18)
[2019-03-05] MEDS ORDERED: Dextrose 50% Abboject 50 ML SYRINGE SLOW IVP PRN (08:18)
[2019-03-05] MEDS ORDERED: Dextrose 5% in Water 1,000 ML IV PRN (08:18)
[2019-03-05] MEDS: Sodium Chloride 0.9% 1,000 ML IV SCH ×2 (08:25→21:28)
[2019-03-05] MEDS ORDERED: Prevnar 13-Val Conj/PF 0.5 ML SYRINGE IM ONE (09:00)
--- NOTE | 2019-03-05 09:18 | HP ---
CHIEF COMPLAINT: Altered mental status. HISTORY OF PRESENT ILLNESS: This patient is an 83-year-old female with a history of a neurogenic bladder with a chronic indwelling Burgess catheter for the last couple of years. The patient presented via the emergency department with decreased mentation and decreased p.o. intake for the last several days. Her primary patient transportation driver for coming in was actually generalized pruritus and scratching. The patient also had some specific left eye scratching and itching. Unaware of any specific fevers or chills or other specific symptoms. REVIEW OF SYSTEMS: The patient herself has dementia and is unable to give any specific answers. The patient's daughter reports that she has had progressive cognitive decline over the last several months. She has significant short-term memory loss and she has had decreased p.o. intake over the last several days. Unaware of any specific fevers or chills or other symptoms. PAST MEDICAL HISTORY: The patient was admitted here in January with enterococcal urinary tract infection. She has history of diabetes mellitus, coronary artery disease with an OH in 2010, previous strokes and TIA, hypothyroidism, hypertension, hyperlipidemia, anxiety, and history of lower extremity deep venous thrombosis. PAST SURGICAL HISTORY: The patient had history of cataractectomy. FAMILY HISTORY: Reviewed, noncontributory. No history of heart disease or cancer. SOCIAL HISTORY: The patient is nonsmoker, nondrinker. She lives with her daughter and is essentially bedbound at this point. ALLERGIES: IODINE. CURRENT MEDICATIONS: 1. Eliquis 10 mg b.i.d. 2. Metoprolol XL 50 mg b.i.d. 3. Levothyroxine 75 mcg daily. 4. Lasix 20 mg daily. 5. Glipizide 10 mg b.i.d. 6. Multivitamin one p.o. daily. PHYSICAL EXAMINATION: VITAL SIGNS: Temperature is 97.6, pulse 94, respirations 16, O2 sat 98% on room air, and blood pressure 139/79. GENERAL APPEARANCE: The patient is very somnolent. She had been awake all night and received Benadryl in the emergency department, so she is not wanting to come fully awake, although she is interactive in moving spontaneously all extremities. She has no OP lesions. Very dry oral mucosa. NECK: Supple and symmetric. HEART: Regular rate and rhythm without murmurs. LUNGS: Clear bilaterally. No wheezes or rales. ABDOMEN: Soft and nontender. There may be some suprapubic tenderness to palpation that is mild. She has no peripheral edema. NEUROLOGICAL: Again, the patient is somnolent. She is moving all extremities spontaneously. It appears to resist any noxious stimuli appropriately. LABORATORY DATA: Initially, white count 10.2, hemoglobin 11.9, and platelets 205. Sodium was 135, BUN is 61, creatinine is 1.8, and glucose 143. BNP 119. Albumin 3.4. Urinalysis shows large leukocyte esterase, greater than 50 white cells, no bacteria seen, 1+ yeast. Repeat labs; white count is 11.4, hemoglobin 10.5. BUN is 56 and creatinine is 1.51. IMAGING DATA: Chest x-ray, stable, chronic changes. CT of the head shows very severe atrophy and chronic white matter ischemic changes. Old infarct changes bilaterally in the cerebellum and cerebrum, but stable from prior study. IMPRESSION AND PLAN: 1. Urinary tract infection with associated encephalopathy. The patient was previously noted to have enterococcal infection. Currently, she is on Rocephin. We will follow up the cultures if the patient has a chronic indwelling Burgess catheter complicating the issue. However, given the white count and the fact that she has systemic symptoms, we will treat aggressively for now. 2. Dehydration. The patient appears to have some prerenal azotemia based on her labs and her physical exam in the fact that she has not been eating and drinking much for several days. We will give IV fluids once we can get IV established, although the nurses were having some difficulty with that at the moment. 3. Acute on chronic renal failure. The patient appears to have chronic stage 3 kidney disease, but is having increased BUN and creatinine from her previous levels again likely due to her dehydration. We will hold on any Lasix and get some fluids and continue to monitor. 4. Diabetes mellitus. The patient is not taking much and so we will hold on the glipizide and give sliding scale with Accu-Cheks only. 5. Pruritus, unclear etiology. May be related to some uremia. We will see how she responds to fluids. 6. Chronic dementia. The patient appears to have significant multi-infarct dementia with declining general status. The family appears to be providing good care for her at home. Job ID: [id number]
[2019-03-05] MEDS: Apixaban 2.5 MG TAB PO SCH ×2 (09:56→21:30)
[2019-03-05] MEDS: diphenhydrAMINE 25 MG CAP PO PRN (15:57)
[2019-03-05] MEDS: Acetaminophen 325 MG TAB PO PRN (15:57)
[2019-03-06] MEDS ORDERED: diphenhydrAMINE 50 MG/ML VIAL IVP SCH (00:45)
[2019-03-06] MEDS: cefTRIAXone\\ROCEPHIN 1 GM in Sodium Chloride 0.9% 100 ML IVPB SCH (02:09)
[2019-03-06 04:51] LABS: #Basophils 0.1 thou/uL (0.0-0.2); #Eosinphils 0.9 thou/uL (0.0-0.7); #Lymphocytes 2.2 thou/uL (1.20-3.40); #Monocytes 0.8 thou/uL (0.11-0.59); #Neutrophils 6.1 thou/uL (1.40-6.50); %Basophils 0.9 % (0.0-1.0); %Eosinophils 8.7 % (0.0-10.0); %Lymphocytes 21.6 % (21.0-51.0); %Monocytes 7.5 % (0.0-10.0); %Neutrophils 61.3 % (42.0-75.0); Hemoglobin 10.7 g/dL (12.0-16.0); Mean Corpuscular Hemoglobin 30.9 pg (27.0-31.0); Mean Corpuscular Volume 93.6 fL (78.0-98.0); Mean Platelet Volume 7.8 fL (7.4-10.4); Platelet Count 182 thou/uL (130-400); RBC Distribution Width 15.1 % (11.5-14.5); Red Blood Cell (RBC) Count 3.47 mill/uL (4.20-5.40)
[2019-03-06 05:02] LABS: Anion Gap 15 mmol/L (10-20); BUN (Urea Nitrogen) 43 mg/dL (9.8-20.1); Calc. Creatinine Clearance 38 mL/min (70-130); Calcium 8.5 mg/dL (7.8-10.44); Carbon Dioxide 20 mmol/L (23-31); Chloride 109 mmol/L (98-107); Estimated GFR-MDRD 49; Glucose 102 mg/dL (83-110); Potassium 3.7 mmol/L (3.5-5.1); Sodium 140 mmol/L (136-145)
[2019-03-06] MEDS: Levothyroxine Sodium 75 MCG TAB PO SCH (06:31)
[2019-03-06] MEDS: Apixaban 2.5 MG TAB PO SCH ×2 (09:18→20:28)
[2019-03-06] MEDS: Acetaminophen 325 MG TAB PO PRN (09:44)
[2019-03-06] MEDS: Sodium Chloride 0.9% 1,000 ML IV SCH (11:42)
--- NOTE | 2019-03-06 13:06 | PRG ---
DATE OF SERVICE: 03/06/2019 SUBJECTIVE: The patient is doing much better today. She feels better. She has been eating more. The patient's daughter says she was able to get up and sit on the side of the bed for about 10 minutes today, which is pretty good accomplishment for her. The patient reports she actually likes the food and says it is better than if she were in retirement. OBJECTIVE: VITAL SIGNS: Temperature is 97.8, pulse 86, respirations 16, O2 saturation 98% on room air, and BP 111/57. GENERAL APPEARANCE: Age-appropriate female, awake, alert, pleasant, and cooperative. HEENT: She has a little bit of left periorbital erythema of the lids. No accumulation of purulence or tearing. No OP lesions. HEART: Regular rate and rhythm without murmurs, gallops, or rubs. LUNGS: Clear to auscultation bilaterally. ABDOMEN: Soft, nontender, and nondistended. EXTREMITIES: No cyanosis, clubbing, or edema. LABORATORY DATA: White count is 10.0, hemoglobin 10.7, and platelets 182. BUN 43, creatinine 1.06, and CO2 is 20. Blood cultures negative. Urine cultures negative. IMPRESSION AND PLAN: 1. Urinary tract infection. Unclear that this is actually the case. Cultures are negative. She has other reasons to account for encephalopathy such as dehydration and uremia. We will continue Rocephin and follow up the urine cultures. 2. Dehydration. The patient appeared to have significant prerenal azotemia, which is improving daily with hydration. 3. Acute on chronic renal failure. The patient's BUN and creatinine have significantly improved with hydration. Continue to hold the Lasix. 4. Generalized pruritus. Actually suspect the patient may have some uremia, that is all resolving now as her BUN and creatinine improved with hydration. 5. Diabetes mellitus. Good control. Currently holding the oral hypoglycemic agents. 6. Chronic dementia. The patient has evidence of multi-infarct dementia. It appears to be in good spirits today, awake, talking very pleasant and appropriate. 7. Possible left conjunctivitis. The patients reports it has been this way for about a week, should be getting better. We discussed the possibility of drops, although the patient does not really like getting the eye drops. Therefore, we will reassess it tomorrow and consider possibly something at the time of discharge. 8. Disposition. If the patient's labs continued to look good tomorrow, she continues to feel well, and cultures remain negative, can likely discharge to home with no antibiotics. We will need to likely adjust her diuretic dose down significantly or hold it entirely, let her followup with her PCP. Job ID: [id number]
[2019-03-06] MEDS: diphenhydrAMINE 25 MG CAP PO PRN (13:52)
[2019-03-07] MEDS: Sodium Chloride 0.9% 1,000 ML IV SCH ×2 (00:41→14:32)
[2019-03-07] MEDS: cefTRIAXone\\ROCEPHIN 1 GM in Sodium Chloride 0.9% 100 ML IVPB SCH (02:05)
[2019-03-07] MEDS: Levothyroxine Sodium 75 MCG TAB PO SCH (05:48)
[2019-03-07] MEDS: diphenhydrAMINE 25 MG CAP PO PRN (07:56)
[2019-03-07] MEDS: Acetaminophen 325 MG TAB PO PRN (07:56)
[2019-03-07] MEDS: Apixaban 2.5 MG TAB PO SCH ×2 (09:21→20:55)
--- NOTE | 2019-03-07 12:46 | PDOC.PN ---
- Subjective Encounter Start Date: 03/07/19 Encounter Start Time: 12:45 Subjective: Pt is seen and examined for Encephalopathy TIANA, UTI with Indewelling Cath -: Daughter at bed side, More alert and communicative - Objective Resuscitation Status - Order Detail: 03/05/19 08:15 Resuscitation Status Routine Resuscitation Status: DNAR: NO Resuscitation Discussed with: Patient's daughter JUAN DIEGO Reviewed: Yes Vital Signs & Weight: Vital Signs (12 hours) Temp Pulse Resp BP Pulse Ox 03/07/19 12:00 98.0 F 80 18 148/65 H 98 03/07/19 08:45 98.6 F 78 18 144/68 H 93 L 03/07/19 04:00 97.7 F 79 18 126/64 97 Weight Admit Weight 138 lb 14.259 oz Weight 137 lb 8.96 oz I&O: 03/06/19 03/07/19 03/08/19 06:59 06:59 06:59 Intake Total 2018 2172 120 Output Total 550 950 Balance 1468 1222 120 Result Diagrams: 03/06/19 03:59 03/06/19 03:59 Additional Labs: Accuchecks 03/07/19 03/06/19 03/06/19 05:45 20:11 16:07 POC Glucose 104 163 H 149 H 03/06/19 12:03 POC Glucose 97 Phys Exam - Physical Examination HEENT: PERRLA, moist MMs, oral pharynx no lesions Neck: no nodes, no JVD, supple, full ROM Respiratory: no wheezing, no rales, no rhonchi, wheezing present Cardiovascular: RRR, no significant murmur, no rub, gallop, irregular Gastrointestinal: non-tender, no distention, positive bowel sounds Musculoskeletal: no edema, pulses present, edema present Neurological: non-focal, normal sensation, moves all 4 limbs Lymphatic: no nodes Psychiatric: normal affect, A&O x 3 Dx/Plan - Plan plan discussed w/ family, moreno catheter, PT/OT, DVT proph w/SCDs Acute Encephalopathy Metabolic imoroved -: TIANA improved with Hydration -: UTI, Urine C/s negative, DC rocephin -: Yeast with Indewelling Cathether , Colonization -: PAF on Eliquis * . Review of Systems - Review of Systems Eyes: negative: Pain, Vision Change, Conjunctivae Inflammation, Eyelid Inflammation, Redness, Other ENT: negative: Ear Pain, Ear Discharge, Nose Pain, Nose Discharge, Nose Congestion, Mouth Pain, Mouth Swelling, Throat Pain, Throat Swelling, Other Respiratory: negative: Cough, Dry, Shortness of Breath, Hemoptysis, SOB with Excertion, Pleuritic Pain, Sputum, Wheezing Cardiovascular: negative: chest pain, palpitations, orthopnea, paroxysmal nocturnal dyspnea, edema, light headedness, other Gastrointestinal: negative: Nausea, Vomiting, Abdominal Pain, Diarrhea, Constipation, Melena, Hematochezia, Other Genitourinary: negative: Dysuria, Frequency, Incontinence, Hematuria, Retention , Other Musculoskeletal: negative: Neck Pain, Shoulder Pain, Arm Pain, Back Pain, Hand Pain, Leg Pain, Foot Pain, Other Neurological: Weakness - Medications/Allergies Allergies/Adverse Reactions: Allergies Allergy/AdvReac Type Severity Reaction Status Date / Time iodine Allergy Unknown Verified 03/05/19 04:00 Medications: Current Medications Acetaminophen (Tylenol) 650 mg PO Q4H PRN PRN Reason: Headache/Fever/Mild Pain (1-3) Last Admin: 03/07/19 07:56 Dose: 650 mg Apixaban (Eliquis) 2.5 mg PO BID [facility] Last Admin: 03/07/19 09:21 Dose: 2.5 mg Dextrose/Water (Dextrose 50%) 25 gm SLOW IVP PRN PRN PRN Reason: Hypoglycemia Diphenhydramine HCl (Benadryl) 25 mg PO Q6H PRN PRN Reason: Itching & Insomnia Last Admin: 03/07/19 07:56 Dose: 25 mg Diphenhydramine HCl (Benadryl) 12.5 mg IVP Q4H PRN PRN Reason: Itching Glucagon (Glucagon) 1 mg IM PRN PRN PRN Reason: Hypoglycemia Ceftriaxone Sodium 1 gm/ (Sodium Chloride) 100 mls @ 200 mls/hr IVPB Q24HR [facility] Last Admin: 03/07/19 02:05 Dose: 100 mls Sodium Chloride (Normal Saline 0.9%) 1,000 mls @ 75 mls/hr IV .[id number] [facility] Last Admin: 03/07/19 00:41 Dose: 1,000 mls Dextrose/Water (D5w) 1,000 mls @ 0 mls/hr IV .Q0M PRN PRN Reason: Hypoglycemia Insulin Human Lispro (Humalog) 0 units SC .MILD SLIDING SCALE PRN PRN Reason: Mild Correctional Scale Levothyroxine Sodium (Synthroid) 75 mcg PO 0600 [facility] Last Admin: 03/07/19 05:48 Dose: 75 mcg Metoprolol Succinate (Toprol Xl) 50 mg PO BID [facility] Last Admin: 03/07/19 09:22 Dose: Not Given
[2019-03-07] MEDS: diphenhydrAMINE 50 MG/ML VIAL IVP PRN (21:26)
[2019-03-08] MEDS: Sodium Chloride 0.9% 1,000 ML IV SCH (04:21)
[2019-03-08] MEDS: Levothyroxine Sodium 75 MCG TAB PO SCH (05:18)
[2019-03-08] MEDS: diphenhydrAMINE 50 MG/ML VIAL IVP PRN (06:10)
[2019-03-08] MEDS: Apixaban 2.5 MG TAB PO SCH (09:24)
--- NOTE | 2019-03-08 10:51 | DIS ---
DATE OF ADMISSION: 03/05/2019 DATE OF DISCHARGE: 03/08/2019 DISCHARGE DISPOSITION: Home. DISCHARGE FOLLOWUP: 1. Follow up with primary care physician, Dr. Mcgrath in 1 week. 2. Follow up with Urology, Dr. Navin Lawrence. The patient was seen and examined on the day of discharge. She denies any new complaints. No chest pain, shortness of breath or palpitations. CODE STATUS: Do not resuscitate. Burgess catheter will be replaced prior to discharge. BRIEF HOSPITAL COURSE: The patient is an 83-year-old female with chronic urinary retention with indwelling Burgess catheter and recurrent UTIs, presented to the hospital on March 05, 2019, with altered mentation. Please note that earlier this month, she was diagnosed with UTI and has completed Levaquin. She was found to have acute kidney injury with creatinine of 1.8 on admission, that improved with IV hydration. Her creatinine improved to 1.06. She was placed on antibiotics for UTI; however, urine culture was negative for any bacteria. It showed yeast. Blood cultures have been negative. She appears stable for discharge. Home health care will be arranged. FINAL DIAGNOSES: 1. Toxic metabolic encephalopathy, multifactorial. 2. Acute kidney injury on chronic kidney disease, stage 3, improved. 3. Diabetes mellitus type 2 with episodes of hypoglycemia at home. Glipizide will be discontinued. 4. Recent orthostatic hypotension. Metoprolol has been discontinued prior to admission. She did not get any antihypertensives during this hospital stay. 5. Hypothyroidism. 6. Physical deconditioning. 7. Recent left lower extremity deep venous thrombosis, on anticoagulation. 8. Adult failure to thrive. 9. Moderate protein-calorie malnutrition. Per family, the patient has not been eating and drinking well recently. 10. Chronic anemia. 11. Hyponatremia. 12. Metabolic acidosis. 13. History of transient ischemic attack and cerebrovascular accident. 14. Coronary artery disease. 15. Recent enterococcal urinary tract infection, completed antibiotics. 16. History of hypertension. 17. Hyperlipidemia. 18. Anxiety. PLAN: Plan of care was discussed with the patient and the family in detail. They stated understanding. DISCHARGE MEDICATIONS: 1. Eliquis 2.5 mg b.i.d. 2. Levothyroxine 75 mcg daily. 3. Multivitamin one tablet daily. 4. Lasix has been changed to as needed. Job ID: [id number]
[2019-03-08 12:53] VITALS: BP 183/84; TEMP 97.8
== END 2019-03-08 14:57 | disposition home health service (06) ==
LOC: ERS 21:34 → ONC 03-05 02:44
PROVIDERS: ADMIT Internal Medicine; ATTEND Internal Medicine
DX: N39.0 Urinary tract infection, site not specified (principal); G92 Toxic encephalopathy; F03.90 Unspecified dementia, unspecified severity, without behavioral disturbance, psychotic disturbance, mood disturbance, and anxiety; L29.9 Pruritus, unspecified; I12.9 Hypertensive chronic kidney disease with stage 1 through stage 4 chronic kidney disease, or unspecified chronic kidney disease; E11.22 Type 2 diabetes mellitus with diabetic chronic kidney disease; N18.3 Chronic kidney disease, stage 3 (moderate); N17.9 Acute kidney failure, unspecified; I25.10 Atherosclerotic heart disease of native coronary artery without angina pectoris; I21.9 Acute myocardial infarction, unspecified; I25.2 Old myocardial infarction; D64.9 Anemia, unspecified; E03.9 Hypothyroidism, unspecified; E44.0 Moderate protein-calorie malnutrition; E87.1 Hypo-osmolality and hyponatremia; E87.2 Acidosis; E78.5 Hyperlipidemia, unspecified; F41.9 Anxiety disorder, unspecified; R53.81 Other malaise; R62.7 Adult failure to thrive; Z86.718 Personal history of other venous thrombosis and embolism; Z68.26 Body mass index [BMI] 26.0-26.9, adult; Z79.01 Long term (current) use of anticoagulants; Z79.899 Other long term (current) drug therapy; Z86.73 Personal history of transient ischemic attack (TIA), and cerebral infarction without residual deficits
CPT/HCPCS: 51702; 70450; 71045; 80048 ×2; 82962 ×4; 83690; 83880; 84484; 85025 ×2; 87040; 87086; 93005; 96361 ×4; 96365; 96366 ×2; 96375; 96376 ×2; 99285; G0378 ×3; 36415; 36416; 80053; 81003; 81015; 84443; J0696; J1200; J3490; Q0153; Q0163

== ENCOUNTER 2019-05-29 03:37 | Observation (INO) | payer MEDICARE ==
[2019-05-29 04:48] LABS: #Basophils 0.1 thou/uL (0.0-0.2); #Eosinphils 0.2 thou/uL (0.0-0.7); #Lymphocytes 2.4 thou/uL (1.20-3.40); #Monocytes 0.4 thou/uL (0.11-0.59); #Neutrophils 5.8 thou/uL (1.40-6.50); %Basophils 0.9 % (0.0-1.0); %Eosinophils 1.7 % (0.0-10.0); %Monocytes 4.3 % (0.0-10.0); %Neutrophils 66.1 % (42.0-75.0); Hemoglobin 13.4 g/dL (12.0-16.0); Mean Corpuscular HGB CONC 31.9 g/dL (32.0-36.0); Mean Corpuscular Hemoglobin 31.6 pg (27.0-31.0); Mean Corpuscular Volume 99.3 fL (78.0-98.0); Mean Platelet Volume 7.7 fL (7.4-10.4); Platelet Count 312 thou/uL (130-400); Red Blood Cell (RBC) Count 4.24 mill/uL (4.20-5.40); White Blood Cell (WBC) Count 8.8 thou/uL (4.8-10.8)
[2019-05-29 04:55] LABS: Bacteria/HPF 3+ HPF (None Seen); Bilirubin Negative (Negative); Blood, Urine Negative (Negative); Clarity Turbid (Clear); Glucose, Urine (Dipstick) Normal (Negative); Leukocyte 500 Leu/uL (Negative); Nitrite 1+ (Negative); Protein, Urine (Dipstick) 30 mg/dL (Neg-Trace); RBC/HPF None Seen HPF (0-3); Squamous Epithelial None Seen HPF (0-3); Urobilinogen Normal mg/dL (Less than 2); WBC/HPF Greater than 50 HPF (0-3); Yeast-Budding 2+ HPF (None Seen)
[2019-05-29 05:11] LABS: ALT (SGPT) Less than 7 U/L (8-55); AST (SGOT) 13 U/L (5-34); Albumin 3.4 g/dL (3.4-4.8); Alkaline Phosphatase 76 U/L (40-150); Anion Gap 14 mmol/L (10-20); BUN (Urea Nitrogen) 17 mg/dL (9.8-20.1); Bilirubin, Total 0.3 mg/dL (0.2-1.2); Calc. Creatinine Clearance 0 mL/min (70-130); Calcium 9.5 mg/dL (7.8-10.44); Carbon Dioxide 25 mmol/L (23-31); Chloride 103 mmol/L (98-107); Estimated GFR-MDRD 73; Globulin 3.2 g/dL (2.4-3.5); Glucose 170 mg/dL (83-110); Potassium 4.8 mmol/L (3.5-5.1); Protein, Total 6.6 g/dL (6.0-8.3); Sodium 137 mmol/L (136-145)
[2019-05-29] MEDS ORDERED: Ondansetron PF 4 MG/2 ML Vial IVP PRN (08:10)
[2019-05-29] MEDS ORDERED: Acetaminophen 325 MG TAB PO PRN ×2 (08:10→09:45)
[2019-05-29] MEDS ORDERED: Ondansetron ODT 4 MG TAB PO PRN (08:10)
[2019-05-29] MEDS ORDERED: Sodium Chloride 0.9% 1,000 ML IV SCH (08:15)
[2019-05-29 08:23] VITALS: BMI 23.3
--- NOTE | 2019-05-29 08:37 | CT ---
CT OF THE BRAIN WITHOUT CONTRAST: Date: 05/29/19 INDICATION: History of dizziness. COMPARISON: Prior exam dated 03/04/19. FINDINGS: Severe chronic small vessel white matter ischemic change is stable. Generalized cerebral and cerebell ar atrophy is stable. Remote infarcts involving both cerebellar hemispheres, left frontal and left pa rietal region, are stable. Remote right frontal lobe infarct is stable. No definite acute infarct, he morrhage, or hydrocephalus is present. Lacunar infarct involving the left thalamus is stable. Mastoid air cells and paranasal sinuses are clear. IMPRESSION: No acute intracranial abnormality. Stable chronic ischemic change as above. POS: BH
[2019-05-29] MEDS ORDERED: ACETAMINOPHEN PO PRN (09:34)
[2019-05-29] MEDS ORDERED: Meclizine HCl 12.5 MG TAB PO PRN (09:35)
--- NOTE | 2019-05-29 10:49 | ULT ---
DOPPLER VENOUS ULTRASOUND OF BOTH LOWER EXTREMITIES: Date: 05/29/19 COMPARISON: Prior exam dated 10/31/18 and a left lower extremity deep venous thrombosis ultrasound dated 01/17/19 . TECHNIQUE: Perez scale, color Doppler, and vascular duplex with spectral analysis was performed of the deep venou s structures of the bilateral lower extremities. The common femoral vein, superficial femoral vein, p roximal greater saphenous vein, proximal greater profunda vein, popliteal, and posterior tibial veins were assessed. FINDINGS: Compared to the most recent comparison dated 01/17/19, there is improved canalization of the chronic deep venous thrombosis involving the left lower extremity. There is some mild eccentric mural thrombu s present within the distal, mid, and proximal left superficial femoral vein. The overall extent of t he thrombus has diminished significantly since the prior exam. No new left-sided deep venous thrombos is is evident. There is normal compression, flow, and augmentation seen within the right lower extrem ity. IMPRESSION: 1. Significant improvement in the extent of the deep venous thrombosis involving the left lower extr emity. There is some eccentric mural thrombus present within the left femoral vein. There is signific antly improved flow particularly within the left popliteal vein when compared to the most recent comp arison. 2. No evidence of deep venous thrombosis within the right lower extremity. POS: BRANNON
--- NOTE | 2019-05-29 10:49 | HP ---
CHIEF COMPLAINT: Bilateral lower extremity pain and dizziness. HISTORY OF PRESENT ILLNESS: The patient is an 84-year-old female, who is bedridden, who started experiencing severe pain in both lower extremities. She was given Tylenol by her daughter at home and this did not really help her much, so she was taken to the emergency room for further evaluation. She also complained about severe dizziness while in bed at home, which gradually improved. This is chronic, comes back from time to time. Apparently, she was noticed that the blood pressure may be drops when she gets up. She has a history of DVT in her left lower extremity and she is treated for now with anticoagulant. PAST MEDICAL HISTORY: Positive for; 1. Type 2 diabetes mellitus. 2. Myocardial infarction in 2010. 3. CVA. 4. Urinary catheter indwelling. 5. Hypothyroidism. 6. Hypertension. 7. Hyperlipidemia. 8. History of TIA. 9. History of DVT in the left lower extremity, undergoing treatment for that. 10. Bladder and stool incontinence. PAST SURGICAL HISTORY: None. PSYCHIATRIC HISTORY: Positive for anxiety. SOCIAL HISTORY: She lives at home. She denies any alcohol intake, cigarette smoking, or illicit drug use. ALLERGIES: NONE. FAMILY HISTORY: Noncontributory. MEDICATIONS: Current medications; 1. Eliquis 5 mg twice a day. 2. Furosemide 20 mg once a day. REVIEW OF SYSTEMS: Basically negative except for above-mentioned leg pain and dizziness and some weakness. All systems were reviewed and they were negative except for above-mentioned symptoms. PHYSICAL EXAMINATION: VITAL SIGNS: Blood pressure is 131/88, pulse is 83, respirations 14, O2 saturation is 94% on room air. Her temperature is 97.6. GENERAL: She follows my commands. HEENT: Head is atraumatic and normocephalic. Sclerae are nonicteric. Oral mucosa is moist. NECK: Supple. LUNGS: Clear. HEART: S1 and S2, normal. No S3. No S4. ABDOMEN: Soft and nontender. Bowel sounds present. EXTREMITIES: No clubbing, cyanosis, or edema. The pulses are somewhat diminished on both tibialis posterior and dorsalis pedis arteries similar bilaterally. NEUROLOGICAL: She is alert and oriented x2. She knows that she is at [place] and she knows that our president is Mr. Fitzgerald, but she does not know the date and year exactly. She moves her all 4 extremities. There is no any motor deficits. There is no nystagmus. There is no strabismus. SKIN: No rash or erythema. She has a chronic indwelling Burgess catheter in place. LABORATORY DATA: Labs showed white count of 8.8, hemoglobin 13.4, hematocrit 42.1, platelet count is 312. Electrolytes within normal limits. Normal kidney function. Glucose 170, ALT less than 7. Urinalysis showed turbid clarity of urine, 30 of proteins, 1+ nitrites, 500 of leukocyte esterases, wbc's greater than 50, 3+ bacteria and 2+ budding yeast. CT of the brain was done which showed acute intracranial abnormality and stable severe chronic small-vessel white matter ischemic change and generalized cerebral and cerebellar atrophy which is stable. The remote infarcts involving both cerebellar hemispheres, left frontal and left parietal regions. They are stable and there is also remote right frontal lobe infarct which is stable too. No acute infarct or hemorrhage or hydrocephalus. Lacunar infarct involving the left thalamus is present, but it is chronic and stable. Doppler of the lower extremities showed improving DVT in the left lower extremity. No DVT in the right lower extremity. EKG showed normal sinus rhythm with left axis, low-voltage QRS, no elevation of the ST-segment. QT 350, QTc 416. IMPRESSION: 1. Dizziness, which is recurrent. Apparently, she has dizziness for quite some time. It comes and goes and the daughter is not really sure what is causing this. 2. Bilateral lower extremity pain, which is completely relieved. I suspect that she might have some degenerative changes in her lower spinal back which cause her pains to come back on and off. 3. Chronic left lower extremity DVT on treatment with Eliquis. 4. History of multiple CVAs in the past. We will start her on aspirin small dose 81 mg. 5. Hyperlipidemia. 6. Hypertension. 7. Hypothyroidism. We will check her thyroid panel to make sure that she does not need any replacement. 8. Diabetes mellitus type 2. Again, we will start her on small dose of glipizide and see how she tolerates that. Her glycemia was up to 170, so she is not really controlled with her diet. PLAN: Admission for observation. Condition is fair. Activity is bedrest. IV 75 mL of normal saline. We will start her on aspirin 81 mg. We will continue her Eliquis. We are going to hold her Lasix and do orthostatic changes whether she is positive for some volume depletion. She is not going to have any DVT prophylaxis since she is on at this point and she has DVT which is contraindication for SCDs. She has some baseline dementia. She hallucinates on and off at home according to her daughter. Her daughter, Tiffany Boyer, is surrogate decision maker. She is DNR and her PCP is Dr. Mcgrath, and to be able to go home in the next 24 hours. Job ID: [id number]
[2019-05-29] MEDS: Apixaban 2.5 MG TAB PO SCH (22:31)
[2019-05-30 07:14] LABS: Anion Gap 13 mmol/L (10-20); BUN (Urea Nitrogen) 19 mg/dL (9.8-20.1); Calc. Creatinine Clearance 45 mL/min (70-130); Calcium 9.1 mg/dL (7.8-10.44); Carbon Dioxide 23 mmol/L (23-31); Chloride 106 mmol/L (98-107); Estimated GFR-MDRD 71; Glucose 149 mg/dL (83-110); Potassium 4.7 mmol/L (3.5-5.1); Sodium 137 mmol/L (136-145)
[2019-05-30 08:11] VITALS: BP 145/66; TEMP 97.9
[2019-05-30] MEDS: Apixaban 2.5 MG TAB PO SCH (08:36)
[2019-05-30] MEDS ORDERED: Aspirin 81 mg Enteric Coated Tablet PO SCH (09:00)
[2019-05-30] MEDS ORDERED: Non-Formulary Item 1 EACH (Multivitamin [Multi-Vitamin Daily] 1 TABLET) PO SCH (09:00)
[2019-05-30] MEDS ORDERED: Multivit, Therapeutic 1 TAB PO SCH (09:00)
--- NOTE | 2019-05-30 13:12 | DIS ---
DATE OF ADMISSION: 05/29/2019 DATE OF DISCHARGE: 05/30/2019 FINAL DIAGNOSES: 1. Dizziness, resolved. 2. Bilateral lower extremity pain, resolved. 3. Diabetes mellitus type 2, diet controlled. 4. Left lower extremity deep vein thrombosis on treatment with Eliquis. 5. History of multiple cerebrovascular accidents in the past. The patient is supposed to be on 81 mg of aspirin. 6. Hyperlipidemia. 7. Hypertension. 8. Hypothyroidism. HOSPITAL COURSE: The patient is an 84-year-old female, who came to the emergency room with complaints of bilateral lower extremities. She has been treated and got admitted to the hospital because another complaint she had was dizziness. There was concern about possible stroke, but her dizziness improved very quickly. She had some workup done, which showed that brain CT showed multiple old infarcts, nothing new. She was started on aspirin. She had venous Doppler of the lower extremities done, which showed significant improvement in the extent of the deep venous thrombosis involving the left lower extremity, and there was no any DVT on the right side. The patient is doing well. Her daughter was assisting her at the bedside. Her blood pressure is 145/66, pulse is 75, respirations are 16, O2 saturation is 93% on room air, temperature is 97.9. She does not have much complaints to offer. Her dizziness has completely resolved and her lower extremity pain has completely resolved. She is discharged on a heart healthy diet with a recommendation to follow up with the primary care physician in 1 week. HOME MEDICATIONS: At the time of discharge, 1. Aspirin 81 mg once a day along with Eliquis 2.5 mg twice a day. 2. Meclizine 12.5 mg p.r.n. as needed every 4 to 6 hours. 3. Multivitamin once a day. 4. Furosemide 20 mg once a day. 5. . 6. Acetaminophen 2 tablets q.4-6 hours p.r.n. as needed. TIME SPENT: Discharge time is less than 30 minutes, and the patient was seen and examined before she is discharged. Job ID: [id number]
--- NOTE | 2019-06-05 16:35 | EKG ---
Test Reason : Blood Pressure : / mmHG Vent. Rate : 085 BPM Atrial Rate : 085 BPM P-R Int : 162 ms QRS Dur : 072 ms QT Int : 350 ms P-R-T Axes : 063 -58 054 degrees QTc Int : 416 ms Normal sinus rhythm Left axis deviation Low voltage QRS Inferior infarct , age undetermined Possible Anterolateral infarct , age undetermined Abnormal ECG Confirmed by CINTIA ZEPEDA D.O. ([id number]), development editor HARI MARIE ([id number]) on 06/05/2019 4:35:28 PM Referred By: Confirmed By:CINTIA ZEPEDA D.O.
== END 2019-05-30 10:59 | disposition home or self-care (01) ==
LOC: ERS 03:37 → 2SE 06:35
PROVIDERS: ADMIT Internal Medicine; ATTEND Internal Medicine
DX: R42 Dizziness and giddiness (principal); I10 Essential (primary) hypertension; E11.9 Type 2 diabetes mellitus without complications; E03.9 Hypothyroidism, unspecified; E78.5 Hyperlipidemia, unspecified; I82.4Z2 Acute embolism and thrombosis of unspecified deep veins of left distal lower extremity; F41.9 Anxiety disorder, unspecified; Z86.73 Personal history of transient ischemic attack (TIA), and cerebral infarction without residual deficits; Z79.82 Long term (current) use of aspirin; Z79.899 Other long term (current) drug therapy; Z79.01 Long term (current) use of anticoagulants
CPT/HCPCS: 51702; 70450; 80048; 80053; 85025; 93005; 93970; 96360; 96361; 99285; G0378 ×2; 36415; 81003; 81015

== ENCOUNTER 2019-06-17 11:40 | Observation (INO) | payer MEDICARE ==
[2019-06-17 12:29] LABS: #Basophils 0.1 thou/uL (0.0-0.2); #Eosinphils 0.3 thou/uL (0.0-0.7); #Lymphocytes 2.3 thou/uL (1.20-3.40); #Monocytes 0.4 thou/uL (0.11-0.59); #Neutrophils 6.2 thou/uL (1.40-6.50); %Basophils 0.8 % (0.0-1.0); %Eosinophils 3.3 % (0.0-10.0); %Lymphocytes 24.8 % (21.0-51.0); %Monocytes 4.4 % (0.0-10.0); %Neutrophils 66.8 % (42.0-75.0); Hemoglobin 13.5 g/dL (12.0-16.0); Mean Corpuscular Hemoglobin 31.7 pg (27.0-31.0); Mean Corpuscular Volume 95.9 fL (78.0-98.0); Mean Platelet Volume 7.5 fL (7.4-10.4); Platelet Count 297 thou/uL (130-400); Red Blood Cell (RBC) Count 4.26 mill/uL (4.20-5.40); White Blood Cell (WBC) Count 9.3 thou/uL (4.8-10.8)
[2019-06-17 12:48] LABS: ALT (SGPT) Less than 7 U/L (8-55); AST (SGOT) 13 U/L (5-34); Albumin 3.6 g/dL (3.4-4.8); Alkaline Phosphatase 89 U/L (40-150); Anion Gap 15 mmol/L (10-20); BUN (Urea Nitrogen) 20 mg/dL (9.8-20.1); Bilirubin, Total 0.4 mg/dL (0.2-1.2); Calc. Creatinine Clearance 0 mL/min (70-130); Calcium 9.8 mg/dL (7.8-10.44); Carbon Dioxide 28 mmol/L (23-31); Chloride 99 mmol/L (98-107); Estimated GFR-MDRD 63; Globulin 3.5 g/dL (2.4-3.5); Glucose 125 mg/dL (83-110); Potassium 4.5 mmol/L (3.5-5.1); Protein, Total 7.1 g/dL (6.0-8.3); Sodium 137 mmol/L (136-145)
--- NOTE | 2019-06-17 12:53 | CT ---
Exam: Abdomen and pelvic CT scan without IV contrast: HISTORY: Abdominal pain, constipation, malaise FINDINGS: Small hiatal hernia. There is a moderate size midline anterior diaphragmatic hernia containing mesent sebastian fat and transverse colon without evidence for associated obstruction. Unremarkable appearing liver. Mildly distended gallbladder with numerous gallstones without gallbladder wall thickening or CT evide nce for acute cholecystitis. Somewhat fatty replaced pancreas. Extensive granulomatous calcifications within a small spleen. Slight nonspecific nodularity of the adrenal glands without focal nodule or mass. No renal calculus or acute obstruction. No CT evidence for acute appendicitis. 4.4 cm diameter thin-walled cyst in the left of the uterus possibly a left ovarian cyst, if this is o f clinical concern, follow-up gynecological evaluation might be considered. Minimally enlarged uterus containing a dense area of amorphous and dystrophic appearing calcification approximately 5.5 cm evidence for large intrauterine fibroid. No large or small bowel obstruction. No CT evidence for acute appendicitis. IMPRESSION: Moderate size anterior midline diaphragmatic hernia containing mesenteric fat and nonobstructing steele sverse colon. Thin-walled left adnexal cyst possibly ovarian, follow-up as above. Large calcified intrauterine fibroid. Mildly distended gallbladder with numerous gallstones without CT evidence for acute cholecystitis. Other findings as above.
[2019-06-17 13:10] LABS: CKMB 1.5 ng/mL (0-6.6)
[2019-06-17 13:11] LABS: Bilirubin Negative (Negative); Blood, Urine Negative (Negative); Glucose, Urine (Dipstick) Negative (Negative); Leukocyte Moderate (Negative); Nitrite Negative (Negative); Protein, Urine (Dipstick) 30 mg/dL (Neg-Trace); Urobilinogen 0.2 mg/dL (Less than 2)
[2019-06-17 13:19] LABS: Clarity Clear (Clear)
[2019-06-17 13:20] LABS: Bacteria/HPF 2+ HPF (None Seen); RBC/HPF 0-3 HPF (0-3); Squamous Epithelial 0-3 HPF (0-3)
[2019-06-17 13:21] LABS: Calcium Oxalate Crystals Rare HPF (None Seen)
--- NOTE | 2019-06-17 13:22 | RAD ---
SINGLE VIEW CHEST: Date: 06/17/19 COMPARISON: 03/04/19. HISTORY: Malaise. FINDINGS: Single view of the chest shows an enlarged but stable cardiomediastinal silhouette with atherosclerot ic calcifications in the aorta. There is no evidence of consolidation, mass, or pleural effusion. IMPRESSION: No evidence of acute cardiopulmonary disease. POS: C
[2019-06-17] MEDS ORDERED: cefTRIAXone\\ROCEPHIN 1 GM VIAL ONE (15:17)
[2019-06-17 17:27] VITALS: BMI 23.1
[2019-06-17] MEDS ORDERED: Bisacodyl 10 MG SUPP PR PRN (17:55)
[2019-06-17] MEDS ORDERED: Ondansetron PF 4 MG/2 ML Vial IVP PRN (17:55)
[2019-06-17] MEDS ORDERED: Guaifenesin DM 100-10/5 ML UDCUP PO PRN (17:55)
[2019-06-17] MEDS ORDERED: Acetaminophen 325 MG TAB PO PRN (17:55)
[2019-06-17] MEDS ORDERED: Docusate 100 MG CAP PO SCH (18:15)
--- NOTE | 2019-06-17 18:45 | HP ---
REASON FOR ADMISSION: Altered mental status, possible UTI, constipation, failure to thrive with poor eating. HISTORY OF PRESENT ILLNESS: Please note, majority of this history was obtained by talking to the patient's daughter, Ms. Tiffany Boyer, as the patient is not fully oriented. She apparently was not eating or drinking for almost a week now. She is not being herself and is confused. She usually carries on a conversation which she has not been doing. She has not had a bowel movement for almost a week and a half now. Ms. Allen has also noticed that she is more weak on the right side where she has had prior stroke. No fever at home. She has chronic Burgess catheter in. The patient also has severe orthostasis per family and they are scared to get her into a wheelchair. PAST MEDICAL AND SURGICAL HISTORY: History of diabetes mellitus type 2, likely atrial fibrillation, history of stroke with right-sided hemiparesis, history of deep venous thrombosis, chronic Burgess catheter, hypothyroidism, prior history of [place], and cataract surgery. CURRENT MEDICATIONS: The patient is on; 1. Eliquis 5 mg twice daily. 2. Lasix 20 mg daily. 3. Aspirin 81 mg p.o. daily. 4. Colace 200 mg p.r.n. 5. Tylenol p.r.n. ALLERGIES: ALLERGIC TO IODINE. SOCIAL HISTORY: Does not abuse alcohol or drugs. No history of smoking. FAMILY HISTORY: Father in his 80s. He had history of lung cancer. Mother in her 70s. She has had history of stroke. CODE STATUS: Do not attempt to resuscitate. Power of hog scalder is Ms. Tiffany Boyer, the patient's daughter, who is here in the ER room 7, confirms the patient's code status. REVIEW OF SYSTEMS: Cannot be obtained as the patient is not fully oriented. PHYSICAL EXAMINATION: GENERAL: The patient is an 84-year-old female who is currently not in any acute distress. VITAL SIGNS: Blood pressure 146/84, pulse 96 per minute, respiratory rate 18 per minute, temperature 98.1 degrees Fahrenheit, and saturating 94% on room air. NECK: Supple. No elevated JVD. HEENT: Eyes; extraocular muscles intact. Pupils reacting to light. Oral cavity, mucous membranes are dry. No exudates or congestion. CARDIOVASCULAR SYSTEM: S1 and S2 heard. Regular rhythm. RESPIRATORY SYSTEM: Air entry, 1+ bilateral. No rales or rhonchi. ABDOMEN: There is mild tenderness in the right upper quadrant, but no rigidity or guarding. Bowel sounds are heard. EXTREMITIES: No peripheral edema or calf tenderness. VASCULAR SYSTEM: Peripheral pulses 1+ bilateral. No ischemic ulcerations or gangrene. CENTRAL NERVOUS SYSTEM: The patient has flattening of nasolabial fold on the right side. Has strength of 3/5 to 4/5 on the right side when compared to left. Accurate neurologic exam is difficult due to the patient's lethargic and confusion at present. PSYCHIATRIC SYSTEM: No obvious hallucinations or delusions. LABORATORY DATA: Chest x-ray done shows no acute cardiopulmonary disease. CT abdomen and pelvis without IV contrast done, shows moderate-sized anterior midline diaphragmatic hernia containing mesenteric fat and nonobstructing transverse colon, there was ovarian left adnexal cyst, mildly distended gallbladder with numerous gallstones with no CT evidence of cholecystitis. Large calcified intrauterine fibroid is seen. EKG done, shows normal sinus rhythm at 88 beats per minute. There are Q-waves seen in leads II, III, aVF, V2, V3. Poor R-wave progression is seen. White count of 9, H and H 13 and 40, platelet count 297 with 66% neutrophils. Electrolytes stable. BUN 20, creatinine 0.8. Serum glucose 125. AST and ALT within normal limits. Alkaline phosphatase 89. Troponin I 0.07. CK-MB 1.5. Albumin is 3.6. UA shows moderate leuk esterase, 11 to 20 wbc's and 2+ bacteria. CLINICAL IMPRESSION AND PLAN: The patient will be under observation on telemetry for acute encephalopathy, generalized weakness, poor oral intake, possible urinary tract infection with indwelling Burgess catheter, possible worsening of her cerebrovascular accident. We will continue her aspirin, gentle hydration with normal saline at 60 mL/h, Levaquin empirically. Blood and urine cultures have been obtained. Right upper quadrant ultrasound will be obtained to confirm if patient has cholecystitis. The patient's daughter, who is here at bedside, mentions that no aggressive measures need to be done. We will not trend her troponin anymore. We will obtain a CT brain to rule out if she has any acute infarct. Given her current clinical examination, it is hard to determine if she has a stroke. The patient also has very little teeth in her mouth, and it is hard to determine if her right nasolabial fold flattening is due to cerebrovascular accident. If the patient were not to turn around in 24 hours, she will be switched over to inpatient status. Job ID: [id number] [id number]
[2019-06-17] MEDS: Sodium Chloride 0.9% 1,000 ML IV SCH (18:59)
[2019-06-17] MEDS: Senokot S 8.6-50 MG TAB PO SCH (20:44)
[2019-06-17] MEDS: Fleet Enema 133 ML BOT PR SCH (20:45)
[2019-06-17] MEDS ORDERED: Famotidine 20 MG TAB PO SCH (21:00)
[2019-06-17] MEDS ORDERED: Atorvastatin Calcium 40 MG TAB PO SCH (21:00)
[2019-06-18 05:21] LABS: #Basophils 0.1 thou/uL (0.0-0.2); #Eosinphils 0.4 thou/uL (0.0-0.7); #Lymphocytes 2.5 thou/uL (1.20-3.40); #Monocytes 0.7 thou/uL (0.11-0.59); #Neutrophils 5.9 thou/uL (1.40-6.50); %Basophils 0.9 % (0.0-1.0); %Eosinophils 3.9 % (0.0-10.0); %Lymphocytes 26.3 % (21.0-51.0); %Monocytes 7.4 % (0.0-10.0); %Neutrophils 61.6 % (42.0-75.0); Hemoglobin 11.5 g/dL (12.0-16.0); Mean Corpuscular HGB CONC 33.1 g/dL (32.0-36.0); Mean Corpuscular Hemoglobin 31.7 pg (27.0-31.0); Mean Corpuscular Volume 95.8 fL (78.0-98.0); Mean Platelet Volume 7.2 fL (7.4-10.4); Platelet Count 262 thou/uL (130-400); Red Blood Cell (RBC) Count 3.62 mill/uL (4.20-5.40); White Blood Cell (WBC) Count 9.6 thou/uL (4.8-10.8)
[2019-06-18 05:41] LABS: ALT (SGPT) Less than 7 U/L (8-55); AST (SGOT) 10 U/L (5-34); Albumin 2.9 g/dL (3.4-4.8); Alkaline Phosphatase 72 U/L (40-150); Anion Gap 12 mmol/L (10-20); BUN (Urea Nitrogen) 17 mg/dL (9.8-20.1); Bilirubin, Total 0.3 mg/dL (0.2-1.2); Calc. Creatinine Clearance 46 mL/min (70-130); Carbon Dioxide 27 mmol/L (23-31); Cardiac Risk 5.8 (Less than 4.5); Chloride 102 mmol/L (98-107); Cholesterol 198 mg/dl (< 200 Desired); Estimated GFR-MDRD 73; Globulin 2.9 g/dL (2.4-3.5); Glucose 110 mg/dL (83-110); HDL Cholesterol 34 mg/dL (>60 Neg Risk); LDL Cholesterol, Calculated 130 mg/dL; Potassium 3.9 mmol/L (3.5-5.1); Protein, Total 5.8 g/dL (6.0-8.3); Sodium 137 mmol/L (136-145); Triglycerides 168 mg/dL (Less than 150)
--- NOTE | 2019-06-18 07:44 | ULT ---
SONOGRAM RIGHT UPPER QUADRANT: HISTORY: Right upper quadrant pain. FINDINGS: Shadowing echogenic stone is present within the gallbladder lumen. Gallbladder is somewhat distended up to 8.2 cm. Patient was reportedly not tender over the gallbladder fossa at the time of the exam. No gallbladder wall thickening or pericholecystic fluid. Common duct is 0.3 cm. Liver unrem arkable without focal mass or intrahepatic biliary dilatation. No free fluid. IMPRESSION: Cholelithiasis. No reliable evidence of acute cholecystitis. Transcribed Date/Time: 06/18/2019 8:31 AM
[2019-06-18] MEDS: Senokot S 8.6-50 MG TAB PO SCH (08:26)
[2019-06-18] MEDS ORDERED: Enoxaparin Sodium 30 MG/0.3 ML SYRINGE SC SCH (09:00)
[2019-06-18] MEDS ORDERED: Aspirin 81 mg Enteric Coated Tablet PO SCH (09:00)
[2019-06-18] MEDS ORDERED: Docusate 100 MG CAP PO SCH (09:00)
--- NOTE | 2019-06-18 10:46 | MRI ---
"PRELIMINARY REPORT" Brain MRI without contrast: 06/18/2019 Please disregard this report. COMPARISON: 06/07/2018 HISTORY: Malaise, assess for acute infarction. TECHNIQUE: Multiplanar multisequence MR imaging of the brain obtained without contrast. FINDINGS: Please disregard this report. Persistent patient motion artifact limits detailed assessment. The diffusion weighted imaging demonst rates no evidence for acute infarction. Axial gradient echo imaging demonstrates no evidence for intracranial hemorrhage. Distal right vertebral artery flow void appears slightly hyperintense on T2 imaging which may be seco ndary to occlusion or motion artifact. There is mild diffuse cerebral volume loss with associated prominence of the CSF containing spaces. R egional bone marrow signal intensity appears within normal limits. No midline shift or mass effect. IMPRESSION: Please disregard this report. Motion limited examination as detailed above. No evidence for acute infarction. Transcribed Date/Time: 06/18/2019 12:03 PM
[2019-06-18] MEDS ORDERED: HumaLOG 300 UNITS/3 ML VIAL SC PRN (10:50)
[2019-06-18] MEDS ORDERED: Dextrose 50% Abboject 50 ML SYRINGE SLOW IVP PRN (10:50)
[2019-06-18] MEDS ORDERED: Dextrose 5% in Water 1,000 ML IV PRN (10:50)
[2019-06-18] MEDS: Sodium Chloride 0.9% 1,000 ML IV SCH (11:00)
--- NOTE | 2019-06-18 13:08 | MRI ---
Brain MRI without contrast: 06/18/2019 COMPARISON: 06/07/2018 HISTORY: Dizziness, assess for acute infarction TECHNIQUE: Multiplanar multisequence MR imaging of the brain obtained without contrast FINDINGS: The diffusion weighted imaging demonstrates no evidence for acute infarction. The axial gradient echo imaging demonstrates mild linear blooming artifact associated with a remote i nfarction of the left cerebellar hemisphere suggesting remote microhemorrhage. The FLAIR and T2-weighted imaging demonstrates evidence of numerous prior cerebellar infarctions, left larger and m ore numerous than right. There is extensive prominent cerebral volume loss with multifocal prior infarctions involving bilateral frontal lobes and left parietal lobe. Extensive periventricular, deep , and white matter T2 and FLAIR hyperintensity noted, evidence of small vessel disease. Regional bone marrow signal intensity appears within normal limits. IMPRESSION: Chronic findings as described above. No MR evidence of acute infarction.
[2019-06-18 16:06] VITALS: BP 153/85; TEMP 98
--- NOTE | 2019-06-20 15:37 | DIS ---
DATE OF ADMISSION: 06/17/2019 DATE OF DISCHARGE: 06/18/2019 DISCHARGE DISPOSITION: To home. PRIMARY DISCHARGE DIAGNOSES: Acute encephalopathy likely metabolic and moderate dehydration, resolved. Constipation, resolved. Failure to thrive with poor eating. Urinary tract infection with indwelling Burgess catheter SECONDARY DISCHARGE DIAGNOSES: Diabetes mellitus type 2, chronic atrial fibrillation, history of cerebrovascular accident with right hemiparesis, history of deep venous thrombosis, history of chronic urinary retention with Burgess catheter , and hypothyroidism. PROCEDURES DONE DURING HOSPITALIZATION: Chest x-ray done shows no evidence of acute cardiopulmonary disease. CT of the abdomen and pelvis without contrast done shows midline diaphragmatic hernia containing mesenteric fat and nonobstructing transverse colon. There is a thin-walled left adnexal cyst, possibly ovarian. Large calcified intrauterine fibroid was incidentally seen. There was cholelithiasis without evidence of cholecystitis. Ultrasound of the abdomen done showed cholelithiasis , but no evidence of acute cholecystitis. Common bile duct was 0.3 cm. MRI brain showed no acute intracranial abnormality. Blood cultures x2, no growth. Urine culture less than 10,000 colony-forming units per mL. H and H 11 and 34, platelet count 262, and white count of 9. BUN 20, creatinine 0.8, total cholesterol 198, triglycerides 168, LDL 130, and HDL 34. DISCHARGE MEDICATIONS: 1. Eliquis 2.5 mg p.o. twice daily. 2. Aspirin 81 mg p.o. daily. 3. Levaquin 250 mg p.o. daily for 4 days for possible UTI. 4. Zocor 10 mg p.o. at bedtime. ALLERGIES: ALLERGIC TO IODINE. DISCHARGE PLAN: The patient to follow up with her primary care physician in 1 week. BRIEF COURSE DURING HOSPITALIZATION: The patient initially was brought by her daughter as she was confused and was not herself. She was also not drinking and eating for almost a week. The patient was admitted for acute encephalopathy with dehydration, possible UTI with indwelling Burgess catheter. She was gently hydrated. The patient's daughter had also mentioned that there was some facial droop and hence the patient was placed under stroke unit initially. She has had prior history of right hemiparesis. She has had MRI done, which does not reveal any acute infarct. Her acute metabolic encephalopathy is completely resolved at the time of discharge. She is otherwise hemodynamically stable and will be shortly discharged home. Prior to discharge, I have given complete updates to the patient's daughter at bedside. Please note, I have seen and examined the patient on the day of discharge. Job ID: [id number] MTDD
--- NOTE | 2019-06-21 16:32 | EKG ---
Test Reason : Blood Pressure : / mmHG Vent. Rate : 088 BPM Atrial Rate : 088 BPM P-R Int : 160 ms QRS Dur : 064 ms QT Int : 356 ms P-R-T Axes : 094 -59 034 degrees QTc Int : 430 ms Normal sinus rhythm Left axis deviation Inferior infarct , age undetermined Anterior infarct , age undetermined Abnormal ECG Confirmed by EILEEN DINERO, USHA ([id number]), online editor LOIS COLON ([id number]) on 06/21/2019 4:32:23 PM Referred By: Confirmed By:USHA ARELLANO MD
== END 2019-06-18 17:06 | disposition home health service (06) ==
LOC: ERS 11:40 → 2NO 15:14 → 2SE 21:56
PROVIDERS: ADMIT Internal Medicine; ATTEND Internal Medicine
DX: G93.40 Encephalopathy, unspecified (principal); E86.0 Dehydration; K59.00 Constipation, unspecified; R62.7 Adult failure to thrive; N39.0 Urinary tract infection, site not specified; E11.9 Type 2 diabetes mellitus without complications; I48.2 Chronic atrial fibrillation; E03.9 Hypothyroidism, unspecified; K80.20 Calculus of gallbladder without cholecystitis without obstruction; K44.9 Diaphragmatic hernia without obstruction or gangrene; I25.2 Old myocardial infarction; F41.9 Anxiety disorder, unspecified; F32.9 Major depressive disorder, single episode, unspecified; Z86.73 Personal history of transient ischemic attack (TIA), and cerebral infarction without residual deficits; Z86.718 Personal history of other venous thrombosis and embolism; Z96.0 Presence of urogenital implants; Z68.23 Body mass index [BMI] 23.0-23.9, adult; Z91.041 Radiographic dye allergy status; Z79.82 Long term (current) use of aspirin; Z79.01 Long term (current) use of anticoagulants; Z79.899 Other long term (current) drug therapy
CPT/HCPCS: 70551; 71045; 74176; 76705; 80053 ×2; 80061; 82553; 82962; 84484; 85025 ×2; 87040; 87086; 93005; 94760; 96365; 96372; 96375; 97139 ×3; 97530; 99285; G0378 ×3; 36415; 36416; 81003; 81015; J0696; J1650; J1956